=== PATIENT | female | born 1940 | race Caucasian/White ===

== ENCOUNTER 2023-05-02 15:44 | Outpatient (CLI) | payer MEDICARE, OTHER, SELFPAY ==
--- NOTE | ~2023-05-02 | XR_ITS ---
Impression: Prominent dorsal soft tissue swelling of the forefoot, nonspecific. Left foot Technique: AP, oblique, and lateral views were obtained. Clinical History: Pain Findings: No acute fracture or dislocation is seen. Osseous alignment is anatomic. Joint spaces are p reserved without erosive or degenerative change. There is prominent dorsal soft tissue swelling in th e forefoot. Impression: Prominent dorsal soft tissue swelling of the forefoot, nonspecific. Reviewed, dictated and finalized at location M.
== END 2023-05-02 15:45 | disposition home or self-care (01) ==
LOC: ANHIMG 15:48
PROVIDERS: PCP Family Medicine; Visit Provider Family Medicine
DX: M79.672 Pain in left foot (principal); R22.42 Localized swelling, mass and lump, left lower limb
CPT/HCPCS: 73630

== ENCOUNTER 2023-09-05 12:43 | Outpatient (CLI) | payer MEDICARE, OTHER, SELFPAY ==
--- NOTE | 2023-09-05 12:47 | ECHO_ITS ---
Patient Info Name: Reyna Ivy Age: 83 years : 1940 Gender: Female Ht: 68 in Wt: 255 lbs BSA: 2.41 m2 HR: 70 bpm BP: 128 / 62 mmHg Technical Quality: Poor Exam Date: 09/05/2023 12:58 PM Exam Location: Echo Lab Patient Status: Outpatient Admit Date: 09/05/2023 Staff Ordering Physician: Haris Gilbert MD Attending Provider: Haris Gilbert MD Referring Physician: Ofelia VILLEGAS; Exam Type: CA echo doppler color flow Study Info Indications I50.9 - Heart failure, unspecified Complete two-dimensional, color flow and Doppler transthoracic echocardiogram is performed. Reason for Poor Study: patient body habitus Summary 1. Complete two-dimensional, color flow and Doppler transthoracic echocardiogram is performed. 2. Technically suboptimal study due to poor sonographic images. 3. Left ventricular chamber dimension is normal. 4. Left ventricular systolic function is normal, estimated at 60-65%. 5. There is mild concentric increased left ventricular wall thickness. 6. The left ventricular diastolic function is grade I diastolic dysfunction. 7. E/e' 13 is mildly elevated. 8. Left atrial chamber dimension is mildly enlarged. 9. There is mild aortic valve sclerosis. 10. The mitral valve has moderately calcified annulus. 11. There is trace tricuspid valve regurgitation. 12. RVSP is not calculated due to an inadequate TR jet. Left Ventricle E/e' 13 is mildly elevated. Technically suboptimal study due to poor sonographic images. Left ventricular chamber dimension is normal. Left ventricular systolic function is normal, estimated at 60-65%. There is mild concentric increased left ventricular wall thickness. The left ventricular diastolic function is grade I diastolic dysfunction. Right Ventricle Right ventricular chamber dimension is normal. Right ventricular systolic function is normal. Left Atria Left atrial chamber dimension is mildly enlarged. Right Atria Right atrial chamber dimension is normal. Aortic Valve The aortic valve is trileaflet. There is mild aortic valve sclerosis. There is no aortic valve stenosis. There is no aortic valve regurgitation. Pulmonic Valve There is no pulmonic regurgitation. Mitral Valve The mitral valve has moderately calcified annulus. There is no mitral valve stenosis. There is no mitral valve regurgitation. Tricuspid Valve There is trace tricuspid valve regurgitation. RVSP is not calculated due to an inadequate TR jet. Pericardium/Pleural There is no pericardial effusion. Inferior Vena Cava Normal inferior vena cava with >50% collapse upon inspiration consistent with normal right atrial pressure, 5 mmHg. Aorta The aortic root size at the sinus of Valsalva is normal. Left Ventricular Outflow Tract Name Value Normal LVOT 2D LVOT Diameter 2.1 cm LVOT Doppler LVOT Peak Gradient 6 mmHg LVOT Mean Gradient 3 mmHg LVOT VTI 29 cm LVOT VTI/AV VTI Ratio 0.8 LVOT Stroke Volume 96 ml LVOT CO 6.5 l/min LVOT CI 2.7 l/min/m2 Pu
== END 2023-09-05 12:44 | disposition home or self-care (01) ==
LOC: ANHCARD 12:44
PROVIDERS: PCP Family Medicine; Visit Provider Family Medicine
DX: R93.1 Abnormal findings on diagnostic imaging of heart and coronary circulation (principal); I35.8 Other nonrheumatic aortic valve disorders; I34.81 Nonrheumatic mitral (valve) annulus calcification; I07.1 Rheumatic tricuspid insufficiency; R06.02 Shortness of breath; R53.83 Other fatigue; I50.9 Heart failure, unspecified
CPT/HCPCS: 93306

== ENCOUNTER 2024-03-17 14:31 | Inpatient (IN) | payer MEDICARE, OTHER, SELFPAY ==
[2024-03-17] VITALS (37 sets, daily range): BP systolic 88–155; BP diastolic 31–87; PULSE 75–99; RESP 11–30; TEMP 37.2–39.4; O2SAT 90–100
--- NOTE | ~2024-03-17 | CT_ITS ---
EXAMINATION: CT abd pelvis lumbar w con DATE: 03/17/2024 20:27 INDICATION: low back pain, fever, recent lithotripsy TECHNIQUE: Computed tomography (CT) of the abdomen and pelvis and lumbar spine was performed with 100 mL Omnipaque-350 intravenous contrast. Automated exposure control and iterative reconstruction techn ique were employed. The dose-length product was 1256.11 mGy-cm. COMPARISON: None. FINDINGS: Lower thorax: Mitral calcification Liver: Normal. Biliary/Gallbladder: Gallbladder is absent. Inflammatory change in the lex hepatis. Mild intrahepat ic and extra hepatic bile duct dilation. The common bile duct measures up to 11 mm. Pancreas: No mass or duct dilation. Spleen: Normal. Adrenals:Small right adrenal adenoma. Kidneys: Suggestion of patchy bilateral renal enhancement. Multiple bilateral subcentimeter hypodensi ties are too small to characterize. Simple left upper pole cyst. Multiple nonobstructing lateral calc gerri. Mild bilateral hydronephrosis with urothelial enhancement, greater on the left. GI tract: Mild distal esophageal and gastric wall edema. Moderate edema with surrounding inflammatory change and a 1.5 cm focal outpouching. No small or large bowel dilation. Normal appendix. Mesentery/Peritoneum: No ascites, mass, or free air. Retroperitoneum: No mass. Pelvis: Pelvic organs are within normal limits. Soft Tissues: Soft tissues and body wall unremarkable. Bones (excluding the lumbar spine): No acute osseous finding. Lumbar spine: 5 nonrib-bearing lumbar-type vertebral bodies. Posterior hardware fusion spanning L2-S1 , with multilevel laminectomies. Loss of the normal lumbar lordosis. Vertebral body heights preserved . Multilevel osseous fusion in the lower lumbar spine. Severe right neural foraminal narrowing second georgina to degenerative change at L1-2, with severe degenerative disc disease at the same level. No fract ure or dislocation. IMPRESSION: Mild intrahepatic and extrahepatic bile duct dilation with inflammatory change in the lex hepatis, may represent obstruction or cholangitis, or be reactive to the duodenal process. Correlate with bili georgina labs. Moderate duodenitis with possible wide necked 1.5 cm duodenal ulcer. Possible bilateral renal inflammatory change as can be seen with ascending infection. Correlate with urinalysis. No obstructive uropathy detected. No acute fracture or traumatic malalignment detected in the lumbar spine Reviewed, dictated and finalized at location K. IMPRESSION: Mild intrahepatic and extrahepatic bile duct dilation with inflammatory change in the lex hepatis, may represent obstruction or cholangitis, or be reactive to the duodenal process. Correlate with biliary labs. Moderate duodenitis with possible wide necked 1.5 cm duodenal ulcer. Possible bilateral renal inflammatory change as can be seen with ascending infe ction. Correlate with urinalysis. No obstructive uropathy detected. No acute fracture or traumatic malalignment detected in the lumbar spine
--- NOTE | ~2024-03-17 | XR_ITS ---
EXAMINATION: XR chest 1V portable DATE: 03/20/2024 09:35 INDICATION: Chest pain. TECHNIQUE: A single frontal view of the chest was obtained. COMPARISON: Chest single view 03/17/2024, CT abdomen and pelvis 03/17/2024 FINDINGS: The patient is rotated to her right. No pneumonia, pleural effusion or pneumothorax. The he art size is normal. Epidural electrodes are noted. There are surgical clips in the axillae. There are changes of posterior fusion procedure in lumbar spine. IMPRESSION: 1. No acute cardiopulmonary disease. Reviewed, dictated and finalized at location A.
--- NOTE | ~2024-03-17 | XR_ITS ---
EXAMINATION: XR chest 1V portable Exam Date/Time: 03/17/2024 17:50 CDT HISTORY: FEVER, UTI Comparison: X-ray thoracic spine 01/11/2018. RESULT: Lines, tubes, and devices: Stimulator pad over the midthoracic spine. Electronic device over the rig ht lower thorax. Left axillary clips. Lungs and pleura: Ill-defined patchy bilateral lower lung airspace disease. Mild left costophrenic a ngle blunting. Cardiomediastinal silhouette: Normal heart size. Mild arch calcification. Calcified lymph nodes. Dil ated central pulmonary arteries as can be seen with pulmonary arterial hypertension. Other: No acute osseous or upper abdominal finding. IMPRESSION: Patchy bilateral lower lung airspace disease, may represent atelectasis, edema, or infection. Reviewed, dictated and finalized at location K.
--- NOTE | ~2024-03-17 | CT_ITS ---
CT abdomen pelvis w con Ordering provider: Melani Be APRN History: 83 years Female with . right flank pain, treating for UTI, hx of stones . Comparison: March 17, 2024 Technique: CT abdomen and pelvis with IV and without oral contrast. Automated exposure control and it erative reconstruction technique were employed. The dose-length product was 1607.52 mGy-cm. 100 mL Om nipaque 350 was given IV. Findings: VISUALIZED LOWER CHEST: Minimal atelectatic changes with trace bilateral pleural effusion versus pleu ral thickening. Subcarinal calcified lymph nodes. UPPER ABDOMINAL ORGANS: Liver: Minimal intrahepatic biliary dilatation. The CBD is not dilated. Hepatomegaly. Gallbladder: Status post cholecystectomy. Spleen: Normal. Stomach/duodenum: Normal. Pancreas: Normal. Adrenals: Normal. Kidneys: Small cyst in the right kidney upper pole. Tiny Stone in the right kidney upper pole measuri ng 2 mm. Stone in the right kidney lower pole measuring 5 mm. Tiny stones in the left kidney lower pole. Hypodense areas in the left kidney upper pole with bulging which may indicate masses versus infection. Further evaluation and follow-up advised. Tiny cysts in the left kidney. PELVIC ORGANS: The bladder is normal. BOWEL AND MESENTERY: Colon: No evidence of diverticulitis. Fluid content is seen in the colon which may indicate diarrhea. Postoperative changes in the transverse colon area. No evidence of appendicitis. Small Bowel: Normal. No obstruction. Peritoneum/mesentery: No free air or free fluid. No mesenteric lymphadenopathy. RETROPERITONEUM: Mild atheromatous disease of the abdominal aorta. No retroperitoneal lymphadenopat hy. MUSCULOSKELETAL: Superficial soft tissues: Anterior abdominal wall hernia with bowel content. Otherwise, The superfici al soft tissues are normal. Bones: Age appropriate degenerative changes of the spine. Postoperative changes. Left spinal stimulator is seen in the lumbar area. IMPRESSION: 1. Hepatomegaly. Minimal intrahepatic biliary dilatation. 2. Bilateral renal cysts. Tiny right kidney upper pole a stone. Stone in the right kidney lower pole . Tiny stone in the left kidney lower pole. 3. Hypodense areas in the left kidney upper pole which may be infectious or masses. Follow-up and fu rther evaluation advised. 4. Fluid content in the colon which may indicate diarrhea. 5. Anterior upper abdominal wall hernia with bowel content. Reviewed, dictated and finalized at location A. IMPRESSION: 1. Hepatomegaly. Minimal intrahepatic biliary dilatation. 2. Bilateral renal cysts. Tiny right kidney upper pole a stone. Stone in the r ight kidney lower pole. Tiny stone in the left kidney lower pole. 3. Hypodense areas in the left kidney upper pole which may be infectious or ma sses. Follow-up and further evaluation advised. 4. Fluid content in the colon which may indicate diarrhea. 5. Anterior upper abdominal wall hernia with bowel content.
--- NOTE | 2024-03-17 17:32 | ED.FEVER ---
HPI - Fever General Chief Complaint: Weakness <Hope Steward PA-C - Last Filed: 03/18/24 00:21> Stated Complaint: weakness and pain <Hope Steward PA-C - Last Filed: 03/18/24 00:21> Time Seen by Provider: 03/17/24 17:14 <Hope Steward PA-C - Last Filed: 03/18/24 00:21> Source: patient <DOM Darden Last Filed: 03/18/24 00:21> Mode of arrival: ambulatory <DOM Darden Last Filed: 03/18/24 00:21> Limitations: no limitations <DOM Darden Last Filed: 03/18/24 00:21> History of Present Illness HPI Narrative: This is a 83-year-old female that presents to the emergency department for fevers and low back pain. Reports she had a lithotripsy 5 days ago with HS. She was evaluated again 2 days ago for worsening low back pain. Diagnosed with dehydration and sciatica. Reports today she has started to have fevers. Reports continued low back pain radiating into the legs. Also reports dysuria. Reports she had a urinary stent removed. She is not currently on any antibiotics. Denies cough, congestion, sore throat, vomiting, diarrhea, hematuria. <DMO Darden Last Filed: 03/18/24 00:21> Related Data Home Medications: Home Medications Medication Instructions Recorded Confirmed gabapentin 300 mg capsule 300 mg PO TID 04/11/23 03/18/24 baclofen 10 mg tablet 10 mg PO QHS 05/09/23 03/18/24 docusate sodium 100 mg tablet 200 mg PO BID 05/09/23 03/18/24 ergocalciferol (vitamin D2) 1,250 1,250 mcg PO MONTHLY 05/09/23 03/18/24 mcg (50,000 unit) capsule fluticasone propionate 50 2 spray intranasal DAILY 05/09/23 03/18/24 mcg/actuation nasal spray,suspension levothyroxine 50 mcg tablet 50 mcg PO DAILY 05/09/23 03/18/24 magnesium 200 mg tablet 250 mg PO BID 05/09/23 03/18/24 omega 4-sql-gxd-fish oil 1,000 mg 1 cap PO DAILY 05/09/23 03/18/24 (120 mg-180 mg) capsule (Fish Oil) hydrocodone 10 mg-acetaminophen 1 tablet PO QHS PRN Pain 11/19/23 03/18/24 325 mg tablet <Hope Steward PA-C - Last Filed: 03/18/24 00:21> Allergies/Adverse Reactions: Allergies Allergy/AdvReac Type Severity Reaction Status Date / Time Penicillins Allergy Unknown Unknown Verified 03/17/24 14:32 adhesive tape AdvReac Mild Unknown Verified 03/17/24 14:32 <Hope Steward PA-C - Last Filed: 03/18/24 00:21> Review of Systems Review of Systems: CONSTITUTIONAL: Reports fever ENT: Denies rhinorrhea, congestion, sore throat CARDIOVASCULAR: Denies edema. RESPIRATORY: Denies cough GASTROINTESTINAL: Denies abdominal pain, nausea, vomiting GENITOURINARY: Reports dysuria. Denies hematuria. MUSCULOSKELETAL: Reports back pain, joint pain, and myalgia. NEUROLOGIC: Denies numbness, or weakness. <Hope Steward PA-C - Last Filed: 03/18/24 00:21> All systems reviewed & are unremarkable except as noted in HPI and below <Hope Steward PA-C - Last Filed: 03/18/24 00:21> [facility] Past Medical History Medical History: Medical History (Updated 03/17/24 @ 22:25 by Hope Steward PA-C) Breast cancer Diabetes Fatigue GERD (gastroesophageal reflux disease) Heart failure History of fatty infiltration of liver Hypertension Hypothyroidism Irritable bowel syndrome Left foot drop Left foot pain Mass of left foot Sciatica Venous stasis dermatitis Vitamin D deficiency <Hope Steward PA-C - Last Filed: 03/18/24 00:21> Surgical History Surgical History: Surgical History H/O colonoscopy H/O mastectomy H/O: hysterectomy History of appendectomy History of back surgery History of colon resection Hx of cholecystectomy <Hope Steward PA-C - Last Filed: 03/18/24 00:21> Family History Family History: Family History (Updated 03/18/24 @ 01:05 by Latrice Reagan RN) Father Family history of Alzheimer's disease Cerebrovascular accident Mother Family history of congestiv
[2024-03-17] MEDS: ACETAMINOPHEN 500 MG TABLET 1000 MG PO (17:46)
[2024-03-17 18:22] LABS: Alanine Aminotransferase 16 U/L (6-35); Alkaline Phosphatase 95 U/L (38-126); Anion Gap 8 mmol/L (4-12); Aspartate Amino Transferase 32 U/L (14-36); Bilirubin,Total 0.6 mg/dL (0.2-1.3); Blood Urea Nitrogen 20 mg/dL (7-17); Calcium 7.6 mg/dL (8.4-10.2); Carbon Dioxide 23 mmol/L (22-30); Chloride 99 mmol/L (98-107); Estimated CRCL calculation 50 ml/min; Estimated Glomerular Filt Rate 60; Glucose 107 mg/dL (65-110); Lipase 103 U/L (23-300); Potassium 3.7 mmol/L (3.4-5.0); Sodium 130 mmol/L (137-145)
[2024-03-17 18:29] LABS: INR 1.3; Prothrombin Time 16.4 Seconds (11.1-14.7)
[2024-03-17 18:30] LABS: Partial Thromboplastin Time 32.4 Seconds (22.3-36.8)
[2024-03-17 18:33] LABS: Lactic Acid Reflex 1.1 mmol/L (0.7-2.0)
[2024-03-17 18:41] LABS: Add Urine Microscopic? YES; Appearance Urine Cloudy (Clear); Bacteria Urine None Seen /hpf; Bilirubin Urine Negative (Negative); Blood Urine 1+ (Negative); Color Urine Yellow (Yellow); Glucose Urine UA Negative (Negative); Ketones Urine Negative (Negative); Leukocyte Esterase Ur 1+ LEU/UL (Negative); Need Manual Microscopic Reviewed; Nitrate Urine Negative (Negative); Protein Urine 2+ mg/dL (Negative); Specific Grav Ur 1.016 (1.001-1.035); Squamous Epithelial Cell Urine Few /hpf (Few); Urobilinogen Urine 0.2 mg/dL (<2.0); WBC Urine 21-50 /hpf (0-3); pH Urine 5.5 (5.0-9.0)
[2024-03-17 18:56] LABS: CRP 20.1 mg/dL (<1.0)
[2024-03-17] MEDS: SODIUM CHLORIDE 0.9% IV 500 ML 999 ML IV CONT ×3 (18:58→23:29)
[2024-03-17 19:04] LABS: Basophils Absolute Auto 0.1 K/mm3 (0.0-0.1); Basophils Percent Auto 0.6 % (0.2-1.2); Eosinophils Absolute Auto 0.1 K/mm3 (0-0.3); Eosinophils Percent Auto 0.6 % (0-4.4); Hematocrit 27.5 % (37.0-47.0); Hemoglobin 8.7 g/dL (12.0-15.0); Immature Granulocyte Absolute 0.04 K/mm3 (0.00-0.031); Immature Granulocyte Percent A 0.5 % (0-0.5); Lymphocytes Absolute Auto 1.29 K/mm3 (0.9-3.2); Lymphocytes Percent Auto 15.7 % (18.3-44.2); Mean Corpuscular HGB Conc 31.6 g/dl (32-36); Mean Corpuscular Hemoglobin 29.6 pg (26-34); Mean Corpuscular Volume 93.5 fl (80-100); Mean Platelet Volume 9.6 fl (7.4-10.4); Monocytes Absolute Auto 1.2 K/mm3 (0.1-0.6); Monocytes Percent Auto 14.1 % (2.6-8.5); Neutrophils Absolute Auto 5.6 K/mm3 (1.3-6.7); Neutrophils Percent Auto 68.5 % (45.5-73.1); Platelet Count Result 249 k/mm3 (150-375); Red Blood Count 2.94 M/mm3 (4.2-5.4); Red Cell Distribution Width 13.1 % (11.5-14.5); White Blood Count 8.2 K/mm3 (4.5-10.0)
[2024-03-17 19:19] LABS: Influenza A QL RT-PCR Negative (Negative); Influenza B QL RT-PCR Negative (Negative); RSV RNA, RT-PCR Negative (Negative); SARS-CoV-2 RNA PCR Negative (Negative)
--- NOTE | 2024-03-17 22:18 | PM.IMHP ---
H&P: HPI History of Present Illness Date/Time: 03/17/24 22:18 Chief Complaint: generalized weakness Narrative: This is an 83-year-old female with past medical history significant for breast cancer, diabetes, GERD, heart failure, left footdrop. patient is status post lithotripsy comes today to the emergency room due to chills, night sweats, generalized weakness, abdominal pain, poor per orally intake. Preliminary workup was significant for chest x-ray with infiltrates, a urinalysis was significant for numerous WBCs present CT of abdomen and pelvis was significant for duodenal ulcer present. patient denies any hematemesis, coffee-ground emesis, bright red blood per rectum, melena, weight loss. patient has been admitted for further evaluation management and treatment. EXAMINATION: XR chest 1V portable Exam Date/Time: 03/17/2024 17:50 CDT HISTORY: FEVER, UTI Comparison: X-ray thoracic spine 01/11/2018. RESULT: Lines, tubes, and devices: Stimulator pad over the midthoracic spine. Electronic device over the right lower thorax. Left axillary clips. Lungs and pleura: Ill-defined patchy bilateral lower lung airspace disease. Mild left costophrenic angle blunting. Cardiomediastinal silhouette: Normal heart size. Mild arch calcification. Calcified lymph nodes. Dilated central pulmonary arteries as can be seen with pulmonary arterial hypertension. Other: No acute osseous or upper abdominal finding. IMPRESSION: Patchy bilateral lower lung airspace disease, may represent atelectasis, edema, or infection. Review of Systems Review of Systems: generalized weakness, malaise, chills, night sweats, poor per oral intake, abdominal pain PMFSH Past Medical History Medical History (Updated 03/18/24 @ 02:14 by Bonnie Randle MD) Breast cancer Diabetes Fatigue GERD (gastroesophageal reflux disease) Heart failure History of fatty infiltration of liver Hypertension Hypothyroidism Irritable bowel syndrome Left foot drop Left foot pain Mass of left foot Sciatica Venous stasis dermatitis Vitamin D deficiency Surgical History Surgical History H/O colonoscopy H/O mastectomy H/O: hysterectomy History of appendectomy History of back surgery History of colon resection Hx of cholecystectomy Family History Family History (Updated 03/18/24 @ 01:05 by Latrice Reagan RN) Father Family history of Alzheimer's disease Cerebrovascular accident Mother Family history of congestive heart failure Family history of chronic obstructive pulmonary disease Lung cancer Social History Social History Smoking status: Former smoker Tobacco type: cigarettes Second hand tobacco smoke exposure: Yes Alcohol intake: current Drinks per week: 1 Substance use: never Do You Feel Safe in your Home?: Yes Lack of Transportation: No Lack of Food: Never True Current Housing: I Have Housing Concerned About Future Housing: No Difficulty Paying Gas/Electric Bills: No Difficulty Paying for Meds: No Currently Unemployed: No Education: Decline to Answer Difficulty w/ Childcare or Family Care: No Living arrangements: with family Occupation/Education: retired Spiritual care concerns: No Agree to blood products: Yes Meds Home Medications and Allergies Home Medications Medication Instructions Recorded Confirmed Type gabapentin 300 mg capsule 300 mg PO TID 04/11/23 03/18/24 History baclofen 10 mg tablet 10 mg PO QHS 05/09/23 03/18/24 History docusate sodium 100 mg tablet 200 mg PO BID 05/09/23 03/18/24 History ergocalciferol (vitamin D2) 1,250 1,250 mcg PO MONTHLY 05/09/23 03/18/24 History mcg (50,000 unit) capsule fluticasone propionate 50 2 spray intranasal DAILY 05/09/23 03/18/24 History mcg/actuation nasal spray,suspension levothyroxine 50 mcg tablet 50 mcg PO FILIPPO
[2024-03-17] MEDS: PHENAZOPYRIDINE HCL 100 MG TABLET 200 MG PO (22:21)
[2024-03-17] MEDS: PANTOPRAZOLE SODIUM IV 40 MG VIAL IV PUSH ×2 (22:21→23:36)
[2024-03-17] MEDS: VANCOMYCIN 1,250 MG/NS 250 ML 1,250 MG/250 ML BAG 166.67 MG IVPB (23:31)
[2024-03-18] VITALS (17 sets, daily range): BP systolic 114–144; BP diastolic 39–61; PULSE 80–92; RESP 16–27; TEMP 36.5–37.6; O2SAT 95–99; BMI 39.0
--- NOTE | 2024-03-18 00:10 | ADMGEN ---
This patient, Reyna Ivy, was admitted to IMU Room 211-01. Patient/family oriented to hospital policies and general routines including ID bracelet, bed and alarms, visiting hours, pain management, procedures, bathroom and other care routines, personal items, smoking policy, room service/diet, and visiting hours. Information on how to activate the Rapid Response Team has been discussed. Patient/Family are encouraged to report perceived risks to care and to ask questions if they do not understand what they are told or what they should do.
[2024-03-18 00:29] LABS: MRSA (PCR) NOT DETECTED (NOT DETECTE)
[2024-03-18] MEDS: VANCOMYCIN 1,250 MG/NS 250 ML 1,250 MG/250 ML BAG 166.67 MG IVPB (01:09)
[2024-03-18] MEDS: GABAPENTIN 300 MG CAPSULE PO ×4 (02:50→21:06)
[2024-03-18] MEDS: ZOLPIDEM TARTRATE (*CRX) 5 MG TABLET PO ×2 (02:50→21:18)
[2024-03-18] MEDS: CEFEPIME 1 GM/NS 50 ML 1 GM/50 ML BAG IVPB ×2 (05:22→12:44)
[2024-03-18] MEDS: LEVOTHYROXINE SODIUM 50 MCG TABLET PO (05:36)
[2024-03-18] MEDS: SUCRALFATE SUSP 100 MG/ML 10 ML UDC 1000 MG PO ×3 (05:36→21:06)
[2024-03-18 05:43] LABS: Estimated CRCL calculation 66 ml/min; Estimated Glomerular Filt Rate > 60
[2024-03-18] MEDS: AZITHROMYCIN 500 MG/NS 250 ML 500 MG/250 ML BAG 250 MG IVPB (05:55)
--- NOTE | 2024-03-18 07:46 | P.CONGI_ITS ---
I, Nicko Bellamy MD, have provided a substantive portion of the care of this patient and discussed the patient with my Nurse Practitioner. I have reviewed any new relevant radiographic and laboratory results including medications. I agree with her documentation as noted below.?I personally performed the medical decision making and much of the history and exam for this encounter. briefly, she has been dealing lately with kidney stones that required hospitalization, also chronic use of nsaid's and constipation on amitiza. Here with abdominal discomfort, dyspepsia, nausea. Blood work showed anemia with hgb 9, CT scan showed duodenitis with possible duodenal ulcer. Last EGD years ago. Plan is EGD to assess, stop nsaids and iv protonix. More recommendations after EGD. Assessment and Plan Assessment and plan (1) Duodenal ulcer: Code(s): K26.9 - Duodenal ulcer, unspecified as acute or chronic, without hemorrhage or perforation Status: Acute (2) Abnormal digestive system diagnostic imaging: Code(s): R93.3 - Abnormal findings on diagnostic imaging of other parts of digestive tra ct Status: Acute (3) Acute blood loss anemia: Code(s): D62 - Acute posthemorrhagic anemia Status: Acute (4) Abnormal findings on imaging of biliary tract: Code(s): R93.2 - Abnormal findings on diagnostic imaging of liver and biliary tract Status: Acute (5) Constipation: Qualifiers: Constipation type: drug induced constipation Qualified Code(s): K59.03 - Drug induced constipation Code(s): K59.00 - Constipation, unspecified Status: Acute (6) Duodenitis: Code(s): K29.80 - Duodenitis without bleeding Status: Acute (7) Bilateral lower abdominal pain: Code(s): R10.31 - Right lower quadrant pain; R10.32 - Left lower quadrant pain Status: Acute (8) Weight loss: Code(s): R63.4 - Abnormal weight loss Status: Acute (9) Early satiety: Code(s): R68.81 - Early satiety Status: Acute (10) NSAID long-term use: Code(s): Z79.1 - superintendent terminal (current) use of non-steroidal anti-inflammatories (NSAID) Status: Acute Plan 1) Abnormal imaging digestive/duodenitis/ possible duodenal ulcer / melena /chronic NSAID use/nausea/weight loss/early satiety/Chronic NSAID use: Last EGD 11/15/[address] Ge showed gastric polyps. Previous EGDs since 2009 revealed 2 large masses removed from the gastric wall and antral ulcer. Endoscopy reports and pathology not available prior to today's visit. Patient has been using ibuprofen and naproxen 1-2 times daily for a long time . She denies any aspirin or anticoagulant use prior to admission. Over the past few weeks she has been having intermittent episodes of black colored stools but has not had a bowel movement over the past 3 days. Admits to occasional nausea but no vomiting. CT on admission showed moderate duodenitis with possible wide neck to 1.5 cm duodenal ulcer. * care with NSAIDs, aspirin, or anticoagulants * NPO * EGD today * continue b.i.d. Protonix * Continue Carafate 1 g q.i.d. * continue antibiotics * further recommendations to follow endoscopy 2) Acute blood loss anemia: Labs during her admission in February showed HGB 14, HCT 43. On admission yesterday labs showed wbc's 8, HGB 9, HCT 28, MCV 94, plat elets 249. INR 1.3. Patient admits to intermittent melena over the past few weeks. Denies any hematochezia. Denies any signs of acute GI bleeding since admission. * primary care team to continue monitoring H&H and transfuse as need
--- NOTE | 2024-03-18 07:46 | WPDGICN ---
Assessment and Plan Assessment and plan (1) Duodenal ulcer: Code(s): K26.9 - Duodenal ulcer, unspecified as acute or chronic, without hemorrhage or perforation Status: Acute (2) Abnormal digestive system diagnostic imaging: Code(s): R93.3 - Abnormal findings on diagnostic imaging of other parts of digestive tract Status: Acute (3) Acute blood loss anemia: Code(s): D62 - Acute posthemorrhagic anemia Status: Acute (4) Abnormal findings on imaging of biliary tract: Code(s): R93.2 - Abnormal findings on diagnostic imaging of liver and biliary tract Status: Acute (5) Constipation: Qualifiers: Constipation type: drug induced constipation Qualified Code(s): K59.03 - Drug induced constipation Code(s): K59.00 - Constipation, unspecified Status: Acute (6) Duodenitis: Code(s): K29.80 - Duodenitis without bleeding Status: Acute (7) Bilateral lower abdominal pain: Code(s): R10.31 - Right lower quadrant pain; R10.32 - Left lower quadrant pain Status: Acute (8) Weight loss: Code(s): R63.4 - Abnormal weight loss Status: Acute (9) Early satiety: Code(s): R68.81 - Early satiety Status: Acute (10) NSAID long-term use: Code(s): Z79.1 - bed bug exterminator (current) use of non-steroidal anti-inflammatories (NSAID) Status: Acute Plan 1) Abnormal imaging digestive/duodenitis/ possible duodenal ulcer / melena /chronic NSAID use/nausea/weight loss/early satiety/Chronic NSAID use: Last EGD 11/15/[address] Ge showed gastric polyps. Previous EGDs since 2009 revealed 2 large masses removed from the gastric wall and antral ulcer. Endoscopy reports and pathology not available prior to today's visit. Patient has been using ibuprofen and naproxen 1-2 times daily for a long time . She denies any aspirin or anticoagulant use prior to admission. Over the past few weeks she has been having intermittent episodes of black colored stools but has not had a bowel movement over the past 3 days. Admits to occasional nausea but no vomiting. CT on admission showed moderate duodenitis with possible wide neck to 1.5 cm duodenal ulcer. care with NSAIDs, aspirin, or anticoagulants NPO EGD today continue b.i.d. Protonix Continue Carafate 1 g q.i.d. continue antibiotics further recommendations to follow endoscopy 2) Acute blood loss anemia: Labs during her admission in February showed HGB 14, HCT 43. On admission yesterday labs showed wbc's 8, HGB 9, HCT 28, MCV 94, platelets 249. INR 1.3. Patient admits to intermittent melena over the past few weeks. Denies any hematochezia. Denies any signs of acute GI bleeding since admission. primary care team to continue monitoring H&H and transfuse as needed to keep HGB > 7 EGD planned to rule out upper GI source of blood loss 3. Bilateral lower quadrant abdominal pain/chronic constipation: Last colonoscopy 11/15/2015 revealed diverticulosis. Patient with a history of partial colon resection performed around 2010 secondary to bowel obstruction, s/p take down. Patient states that she has been on Amitiza 8 mcg daily for approximately 6 months which had been controlling her constipation well until recently as she has had multiple surgeries and has been requiring more pain medication. Patient has been using laxatives as needed and states that her last good bowel movement was 3 days ago. Her lower abdominal pain she describes as a dull ache that radiates into her back and has been occurring for a few weeks. This pain has no correlation with with bowel movements or food intake. continue Amitiza 8 mcg but increased BID dosing, may consider increasing to 24 mcg if constipation persists Thank you very much for allowing me to share in the care of this very nice patient. This report may have been done utilizing a voice recognition system. Attempts have been made to correct
--- NOTE | 2024-03-18 08:24 | WPDURCON ---
Assessment and Plan Assessment and plan (1) UTI (urinary tract infection): Code(s): N39.0 - Urinary tract infection, site not specified Status: Acute Assessment and Plan: Culture is pending. Will continue with antibiotics pending sensitivities. Doubt that this is the true source of all for discomfort and weakness as her ulcer may be more of an issue. Unclear as to why is having high fevers in the face of a normal white count. (2) Acute pyelonephritis: Code(s): N10 - Acute pyelonephritis Status: Acute Assessment and Plan: Again is asymptomatic regarding specific renal colic. Will await urine culture sensitivities (3) Duodenal ulcer: Code(s): K26.9 - Duodenal ulcer, unspecified as acute or chronic, without hemorrhage or perforation Status: Acute Assessment and Plan: managed by primary care service Urology Consult Note HPI Date Seen: 03/18/24 Time Seen: 08:24 Requesting Physician: Bonnie Randle MD Primary Care Provider: Carmelina Cole APRN Consult Narrative Reason for consult: UTI and bilateral renal stranding Narrative: Reyna Ivy is a 83 year old female who underwent left ureteroscopy with extraction of 2 ureteral stones measuring 5-6 mm each on 03/12/24. She had an indwelling stent that was removed several days later. She also has a history of sciatica with low back pain as well as a known duodenal ulcer. She presented the emergency room with weakness and diffuse abdominal low back pain. CT scan revealed some mild intrahepatic and extrahepatic bile duct dilatation with inflammatory change in the lex hepatis, moderate duodenitis with possible wide necked 1.5 cm duodenal ulcer and possible bilateral renal inflammatory change no obstructive uropathy was detected. Her white count was normal. Urine did have some leukocytes and white cells present. She denies any voiding symptoms. Also denied any specific renal colic. Blood in urine cultures are pending. Review of Systems Review of Systems: All systems reviewed & are unremarkable except as noted in HPI and below PMFSH Past Medical History Medical History Breast cancer Diabetes Fatigue GERD (gastroesophageal reflux disease) Heart failure History of fatty infiltration of liver Hypertension Hypothyroidism Irritable bowel syndrome Left foot drop Left foot pain Mass of left foot Sciatica Venous stasis dermatitis Vitamin D deficiency Surgical History Surgical History H/O colonoscopy H/O mastectomy H/O: hysterectomy History of appendectomy History of back surgery History of colon resection Hx of cholecystectomy Family History Family History Father Family history of Alzheimer's disease Cerebrovascular accident Mother Family history of congestive heart failure Family history of chronic obstructive pulmonary disease Lung cancer Social History Social History Smoking status: Former smoker Tobacco type: cigarettes Second hand tobacco smoke exposure: Yes Alcohol intake: current Drinks per week: 1 Substance use: never Do You Feel Safe in your Home?: Yes Lack of Transportation: No Lack of Food: Never True Current Housing: I Have Housing Concerned About Future Housing: No Difficulty Paying Gas/Electric Bills: No Difficulty Paying for Meds: No Currently Unemployed: No Education: Decline to Answer Difficulty w/ Childcare or Family Care: No Living arrangements: with family Occupation/Education: retired Spiritual care concerns: No Agree to blood products: Yes Meds Home Medications and Allergies Home Medications Medication Instructions Recorded Confirmed Type gabapentin 300 mg capsule 300 mg PO TID
[2024-03-18] MEDS: FLUTICASONE PROPIONATE 0.05% NA SPR 16 GM BTL (*BKC) 2 SPRAY NASAL (08:43)
[2024-03-18] MEDS: PANTOPRAZOLE SODIUM IV 40 MG VIAL IV PUSH ×2 (08:43→21:06)
--- NOTE | 2024-03-18 12:39 | PM.IMPN ---
Progress Note: A&P Assessment and Plan (1) Pneumonia: Code(s): J18.9 - Pneumonia, unspecified organism Status: Acute Assessment and Plan: 03/18/24: Chest x-ray showing patchy bilateral lower lung airspace disease Continue Rocephin and azithromycin Blood cultures were obtained and are pending MRSA negative D/C Vancomycin (2) UTI (urinary tract infection): Code(s): N39.0 - Urinary tract infection, site not specified Status: Acute Assessment and Plan: 03/18/24: UA showed 2+ urine protein, 1+ urine blood, 1+ leukocyte, 6-10 urine RBC, 21-50 urine WBC. Urine and blood cultures were obtained and are pending Continue Rocephin (3) Acute pyelonephritis: Code(s): N10 - Acute pyelonephritis Status: Acute Assessment and Plan: 03/18/24: Continue Rocephin CT of abdomen and pelvis shown possible bilateral renal inflammatory changes as can be seen with ascending infection Urology consulted and following (4) Duodenal ulcer: Code(s): K26.9 - Duodenal ulcer, unspecified as acute or chronic, without hemorrhage or perforation Status: Acute Assessment and Plan: 03/18/24: CT of the abdomen pelvis shows moderate duodenitis with possible wide neck 1.5 cm duodenal ulcer Continue Protonix b.i.d. Continue Carafate GI consulted plan for EGD today NPO for now (5) Hypothyroidism: Qualifiers: Hypothyroidism type: acquired Qualified Code(s): E03.9 - Hypothyroidism, unspecified Code(s): E03.9 - Hypothyroidism, unspecified Status: Acute Assessment and Plan: 03/18/24: Continue Synthroid (6) Hypertension: Qualifiers: Hypertension type: primary hypertension Qualified Code(s): I10 - Essential (primary) hypertension Code(s): I10 - Essential (primary) hypertension Status: Acute Assessment and Plan: 03/18/24: Blood pressure ranging 126/55 to 143/52 Continue lisinopril Time Spent With Patient Time with patient: Greater than 35 minutes Subjective Date/time seen: 03/18/24 12:39 Interval history: Interval history: This is an 83-year-old female who presented to the hospital on 03/17/2024 with weakness. Workup in the hospital included chest x-ray showed patchy bilateral lower lung airspace disease. CT of abdomen pelvis and lumbar spine with contrast showed mild intrahepatic and extrahepatic bile duct dilatation with inflammatory change in the lex hepatis representing obstruction or cholangitis, moderate duodenitis with possible wide necked 1.5 cm duodenal ulcer, possible bilateral renal inflammatory change is seen with infection. Initial labs showed a white blood cell count of 8.2, hemoglobin 8.7, sodium 130, lactic acid was normal at 1.1, liver enzymes were normal, C reactive protein 20.1, lipase 103. UA was obtained and shown 2+ urine protein, 1+ urine blood, 1+ leukocytes, 6-10 urine RBC, 21-50 urine wbc's. MRSA was negative. Respiratory panel was negative for influenza a and B, RSV, COVID. Blood and urine cultures were obtained and are pending. Patient was given IV fluids, peridium, Protonix, Rocephin, vancomycin while in the ED. urology and GI were consulted. 03/18/24: Patient denies. Patient endorses. Review of Systems Review of Systems: generalized weakness, malaise, chills, night sweats, poor per oral intake, abdominal pain All systems reviewed & are unremarkable except as noted in HPI and below Constitutional: Constitutional: Reports as per HPI and Reports no additional constitutional complaints Eyes: Eyes: Reports as per HPI and Reports no additional eye complaints ENT: Reports system reviewed and no additional complaints, except as documented and Reports as per HPI Cardiovascular: Cardiovascular: Reports as per HPI and Reports no additional cardiovascular complaints Respiratory: Respiratory: Reports as per HPI and Reports no additional respiratory complaints
[2024-03-18] MEDS: HYDROmorphone HCL INJ (*CRX) 1 MG/ML SYR 0.5 MG IV PUSH ×2 (14:15→21:07)
--- NOTE | 2024-03-18 14:15 | PC.NURSE ---
To GI Lab per Alessio hernadez. Report given to Margie Quintero @ [phone]
[2024-03-18] MEDS: LACTATED RINGERS 1,000 ML 150 ML IV CONT (14:28)
--- NOTE | 2024-03-18 15:06 | WPDANESEPPF ---
Anes - Initial Pre Proc Eval Procedure: Operation Date: 03/18/24 17:00 Proposed Procedures p Esophagogastroduodenoscopy - Nicko Bellamy MD Date/Time: 03/18/24 15:06 Surgeon: Bonnie Randle MD Pre Op Diagnosis: Bilateral Pyelonephritis /Sepsis Patient Data Age: 83 Gender: F Height: 1.68 m Weight: 109.8 kg Last Vital Signs Temp 97.7 F 03/18/24 14:22 Pulse 91 03/18/24 14:22 Resp 20 03/18/24 14:22 BP 144/61 H 03/18/24 14:22 Pulse Ox 97 03/18/24 14:22 O2 Del Method Room Air 03/18/24 14:22 Allergies Allergy/AdvReac Type Severity Reaction Status Date / Time Penicillins Allergy Unknown Unknown Verified 03/17/24 14:32 adhesive tape AdvReac Mild Unknown Verified 03/17/24 14:32 Home Medications Medication Instructions Recorded Confirmed Type gabapentin 300 mg capsule 300 mg PO TID 04/11/23 03/18/24 History baclofen 10 mg tablet 10 mg PO QHS 05/09/23 03/18/24 History docusate sodium 100 mg tablet 200 mg PO BID 05/09/23 03/18/24 History ergocalciferol (vitamin D2) 1,250 1,250 mcg PO MONTHLY 05/09/23 03/18/24 History mcg (50,000 unit) capsule fluticasone propionate 50 2 spray intranasal DAILY 05/09/23 03/18/24 History mcg/actuation nasal spray,suspension levothyroxine 50 mcg tablet 50 mcg PO DAILY 05/09/23 03/18/24 History magnesium 200 mg tablet 250 mg PO BID 05/09/23 03/18/24 History omega [id number]-fish oil 1,000 mg 1 cap PO DAILY 05/09/23 03/18/24 History (120 mg-180 mg) capsule (Fish Oil) hydrocodone 10 mg-acetaminophen 1 tablet PO QHS PRN Pain 11/19/23 03/18/24 History 325 mg tablet lubiprostone 8 mcg capsule 8 mcg PO DAILY #90 caps 02/08/24 03/18/24 Rx lisinopril 20 mg tablet 20 mg PO DAILY #90 tabs 02/21/24 03/18/24 Rx zolpidem 5 mg tablet (Ambien) 5 mg PO QHS PRN insomnia #90 tabs 02/21/24 03/18/24 Rx Laboratory Tests 03/17/24 03/17/24 03/17/24 17:50 18:13 18:16 WBC RBC Hgb Hct MCV MCH MCHC RDW Plt Count MPV Immature Gran % (Auto) Neut % (Auto) Lymph % (Auto) Weld % (Auto) Eos % (Auto) Baso % (Auto) Lymph # (Auto) Weld # (Auto) Eos # (Auto) Baso # (Auto) Abs Immat Gran (auto) Absolute Neuts (auto) Absolute Nucleated RBC Nucleated RBC % PT 16.4 H Seconds (11.1-14.7) INR 1.3 APTT 32.4 Seconds (22.3-36.8) Sodium 130 L mmol/L (137-145) Potassium 3.7 mmol/L (3.4-5.0) Chloride 99 mmol/L (98-107) Carbon Dioxide 23 mmol/L (22-30) Anion Gap 8 mmol/L (4-12) BUN 20 H mg/dL (7-17) Creatinine 0.90 mg/dL (0.7-1.0) Estim Creat Clear Calc 50 ml/min Estimated GFR 60 (59 - ) Glucose 107 mg/dL (65-110) Lactic Acid 1.1 mmol/L (0.7-2.0) Calcium 7.6 L mg/dL (8.4-10.2) Total Bilirubin 0.6 mg/dL (0.2-1.3) AST 32 U/L (14-36) ALT 16 U/L (6-35) Alkaline Phosphatase 95 U/L (38-126) C-Reactive Protein 20.1 H mg/dL (<1.0) Total Protein 6.0 L g/dL (6.3-8.2) Albumin 3.0 L g/dL (3.5-5.1) Lipase 103 U/L (23-300) Urine Color Yellow (Yellow) Urine Appearance Cloudy H (Clear) Urine pH 5.5 (5.0-9.0) Ur Specific [place] 1.016 (1.001-1.035) Urine Protein 2+ H mg/dL (Negative) Urine Glucose (UA) Negative mg/dL (Negative) Urine Ketones Negative mg/dL (Negative) Ur Blood (Man) 1+ H (Negative) Urine Nitrate Negative (Negative) Urine Bilirubin Negative (Negative) Urine Urobilinogen 0.2 mg/dL
[2024-03-18] MEDS: BENZOCAINE (*SP) 60 ML SPRAY CAN (HURRICAINE) 1 SPRAY MUCOUS MEM (15:13)
--- NOTE | 2024-03-18 16:01 | PC.NURSE ---
Returned from GI Lab. Report received from [ WILDER Keenan @ [phone]
[2024-03-18] MEDS: ENOXAPARIN 40 MG/0.4 ML SYRINGE SUB-Q (16:17)
[2024-03-18] MEDS: lisinopriL 20 MG TABLET PO (16:17)
[2024-03-18] MEDS: LUBIPROSTONE 8 MCG CAPSULE PO (16:17)
[2024-03-18] MEDS: OMEGA 3 POLYUNSAT FATTY ACIDS 1 GM CAP PO (16:17)
[2024-03-18] MEDS: DOCUSATE SODIUM 100 MG CAPSULE 200 MG PO (16:17)
[2024-03-18 16:21] LABS: HPYLORIRESULT Negative
[2024-03-18] MEDS: BACLOFEN 10 MG TABLET PO (21:06)
[2024-03-18] MEDS: CEFEPIME 2 GM/NS 50 ML 2 GM/50 ML BAG IVPB (21:06)
[2024-03-19 00:27] VITALS: BP 126/47; PULSE 93; RESP 20; TEMP 37.7; O2SAT 98
--- NOTE | 2024-03-19 06:38 | PC.NURSE ---
This patient, Reyna Ivy, was received from [[facility] ] on 03/19/24 at 0638. Patient/family oriented to unit policies and routines
[2024-03-19 06:45] VITALS: PULSE 79; O2SAT 95
[2024-03-19] MEDS: LEVOTHYROXINE SODIUM 50 MCG TABLET PO (06:47)
[2024-03-19] MEDS: SUCRALFATE SUSP 100 MG/ML 10 ML UDC 1000 MG PO ×4 (06:48→20:58)
[2024-03-19] MEDS: AZITHROMYCIN 500 MG/NS 250 ML 500 MG/250 ML BAG 250 MG IVPB (06:53)
[2024-03-19] MEDS: CEFEPIME 2 GM/NS 50 ML 2 GM/50 ML BAG IVPB (08:06)
[2024-03-19] MEDS: lisinopriL 20 MG TABLET PO (08:06)
[2024-03-19] MEDS: ENOXAPARIN 40 MG/0.4 ML SYRINGE SUB-Q (08:06)
[2024-03-19] MEDS: OMEGA 3 POLYUNSAT FATTY ACIDS 1 GM CAP PO (08:06)
[2024-03-19] MEDS: FLUTICASONE PROPIONATE 0.05% NA SPR 16 GM BTL (*BKC) 2 SPRAY NASAL (08:06)
[2024-03-19 08:13] VITALS: TEMP 37.3
[2024-03-19 08:34] LABS: Basophils Absolute Auto 0.1 K/mm3 (0.0-0.1); Basophils Percent Auto 0.8 % (0.2-1.2); Eosinophils Absolute Auto 0.2 K/mm3 (0-0.3); Hematocrit 27.1 % (37.0-47.0); Hemoglobin 8.6 g/dL (12.0-15.0); Immature Granulocyte Absolute 0.03 K/mm3 (0.00-0.031); Immature Granulocyte Percent A 0.5 % (0-0.5); Lymphocytes Absolute Auto 1.17 K/mm3 (0.9-3.2); Lymphocytes Percent Auto 19.7 % (18.3-44.2); Mean Corpuscular HGB Conc 31.7 g/dl (32-36); Mean Corpuscular Hemoglobin 29.7 pg (26-34); Mean Corpuscular Volume 93.4 fl (80-100); Mean Platelet Volume 9.5 fl (7.4-10.4); Monocytes Absolute Auto 0.9 K/mm3 (0.1-0.6); Monocytes Percent Auto 14.7 % (2.6-8.5); Neutrophils Absolute Auto 3.6 K/mm3 (1.3-6.7); Neutrophils Percent Auto 60.3 % (45.5-73.1); Platelet Count Result 233 k/mm3 (150-375); Red Cell Distribution Width 13.2 % (11.5-14.5); White Blood Count 5.9 K/mm3 (4.5-10.0)
[2024-03-19 08:57] LABS: Alanine Aminotransferase 22 U/L (6-35); Albumin Level 2.7 g/dL (3.5-5.1); Alkaline Phosphatase 90 U/L (38-126); Anion Gap 6 mmol/L (4-12); Aspartate Amino Transferase 36 U/L (14-36); Bilirubin,Total 0.4 mg/dL (0.2-1.3); Blood Urea Nitrogen 13 mg/dL (7-17); Calcium 7.5 mg/dL (8.4-10.2); Carbon Dioxide 24 mmol/L (22-30); Chloride 104 mmol/L (98-107); Estimated CRCL calculation 65 ml/min; Estimated Glomerular Filt Rate > 60; Glucose 110 mg/dL (65-110); Potassium 3.6 mmol/L (3.4-5.0); Sodium 134 mmol/L (137-145)
[2024-03-19] MEDS: GABAPENTIN 300 MG CAPSULE PO ×3 (09:18→20:58)
[2024-03-19] MEDS: PANTOPRAZOLE 40 MG TABLET PO ×2 (09:18→20:57)
--- NOTE | 2024-03-19 09:41 | WPDUROPN2 ---
Progress Note: A&P Assessment and Plan (1) UTI (urinary tract infection): Code(s): N39.0 - Urinary tract infection, site not specified Status: Acute Assessment and Plan: Preliminary urine culture with growth of Gram-negative bacilli. Continue empiric antibiotics while awaiting final culture results. Remaining afebrile today. WBC 5.9. (2) Acute pyelonephritis: Code(s): N10 - Acute pyelonephritis Status: Acute Assessment and Plan: Suggested on CT, though she is relatively asymptomatic. Continue antibiotics tailored to urine culture as above (3) Duodenal ulcer: Code(s): K26.9 - Duodenal ulcer, unspecified as acute or chronic, without hemorrhage or perforation Status: Acute Assessment and Plan: Being managed by GI and primary team Subjective Subjective Date/Time Seen: 03/19/24 09:41 Interval history: She is feeling well today. Reports abdominal/epigastric pain is greatly improved. Has very mild dysuria which she states is improving. Denies hematuria. Denies nausea, vomiting, fever, or chills. Review of Systems Review of Systems: All systems reviewed & are unremarkable except as noted in HPI and below Exam Narrative: General: Awake, alert, comfortable, no acute distress HEENT: Normocephalic, atraumatic, sclerae anicteric Respiratory: Normal respiratory effort, no accessory muscle use Abdomen: Nondistended, soft, nontender Skin: Normal coloration, warm and dry Neurologic: No focal neuro deficits noted Psychiatric: Appropriate mood and affect, judgment and insight intact Objective Data Vital Signs Vital Signs: Vital Signs - 24 hr 03/18/24 10:00 03/18/24 11:25 03/18/24 12:00 Temperature 99.7 F H Pulse Rate 90 86 Respiratory Rate 20 Blood Pressure 126/55 L Pulse Oximetry 96 Oxygen Delivery Room Air Oxygen Flow Rate 03/18/24 14:22 03/18/24 12:00 03/18/24 14:00 Temperature 97.7 F Pulse Rate 91 84 89 Respiratory Rate 20 Blood Pressure 144/61 H Pulse Oximetry 97 Oxygen Delivery Room Air Oxygen Flow Rate 03/18/24 15:28 03/18/24 15:38 03/18/24 15:48 Temperature Pulse Rate 82 83 82 Respiratory Rate 21 H 24 H 27 H Blood Pressure 118/52 L 116/59 L 131/59 L Pulse Oximetry 97 96 97 Oxygen Delivery Room Air Room Air Room Air Oxygen Flow Rate 03/18/24 16:00 03/18/24 16:00 03/18/24 16:00 Temperature 98.2 F Pulse Rate 85 87 Respiratory Rate 18 Blood Pressure 132/53 L Pulse Oximetry 95 95 Oxygen Delivery Nasal Cannula Oxygen Flow Rate 2 03/18/24 19:58 03/18/24 20:00 03/19/24 00:27 Temperature 98.6 F 100 F H Pulse Rate 87 87 93 Respiratory Rate 20 20 20 Blood Pressure 114/42 L 126/47 L Pulse Oximetry 98 98 98 Oxygen Delivery Nasal Cannula Oxygen Flow Rate 2 03/19/24 06:45 03/19/24 08:13 Temperature 99.1 F Pulse Rate 79 Respiratory Rate Blood Pressure Pulse Oximetry 95 Oxygen Delivery Room Air Oxygen Flow Rate Intake/Output Intake/Output: Intake & Output 03/16/24 03/17/24 03/18/24 03/19/24 23:59 23:59 23:59 23:59 Intake Total 1050 1017.5 880 Output Total 602 100 Balance 1050 415.5 780 Meds/Results Medications: Active Medications Generic Name Dose Route Start Last Admin Trade Name Freq PRN Reason Stop Dose Admin Hydrocodone Bitart/Acetaminophen 1 tab 03/18/24 02:02 Hydrocodone/Acetaminophen (*Crx) 10-325 Mg Tablet PO QHS PRN Pain 4-6 Baclofen 10 mg 03/18/24 21:00 03/18/24 21:06 Baclofen 10 Mg Tablet PO 10 mg QHS JOSE ANTONIO Administration Docusate Sodium 200 mg 03/18/24 09:00 03/19/24 07:56 Docusate Sodium 100 Mg Capsule PO Not Given Q12HR [facility] Enoxaparin Sodium 40 mg 03/18/24 12:55 03/19/24 08:06 Enoxaparin 40 Mg/0.4 Ml Syringe SUB-Q 40 mg DAILY JOSE ANTONIO Administration Fish Oil 1 gm 03/18/24 12:55 03/19/24 08:06 [place] 3 Polyunsat Fatty Acids 1 Gm Cap PO 1 gm DAILY JOSE ANTONIO
--- NOTE | 2024-03-19 11:33 | P.PNIM_ITS ---
Progress Note: A&P Assessment and Plan (1) Pneumonia: Code(s): J18.9 - Pneumonia, unspecified organism Status: Acute Assessment and Plan: 03/18/24: * Chest x-ray showing patchy bilateral lower lung airspace disease * Continue Rocephin and azithromycin * Blood cultures were obtained and are pending * MRSA negative * D/C Vancomycin 03/19/24: * Switched azithromycin to oral * Continue cefepime 2 g * Blood culture showing no growth to date on preliminary read (2) UTI (urinary tract infection): Code(s): N39.0 - Urinary tract infection, site not specified Status: Acute Assessment and Plan: 03/18/24: * UA showed 2+ urine protein, 1+ urine blood, 1+ leukocyte, 6-10 urine RBC, 21- 50 urine WBC. * Urine and blood cultures were obtained and are pending * Continue cefepime 03/19/24: * Urine culture showing Gram-negative bacilli on preliminary read * Continue cefepime (3) Acute pyelonephritis: Code(s): N10 - Acute pyelonephritis Status: Acute Assessment and Plan: 03/18/24: * Continue cefepime * CT of abdomen and pelvis shown possible bilateral renal inflammatory changes as can be seen with ascending infection * Urology consulted and following 03/19/24: * Continue cefepime * Urine culture showing Gram-negative bacilli on preliminary read (4) Duodenal ulcer: Code(s): K26.9 - Duodenal ulcer, unspecified as acute or chronic, without hemorrhage or perforation Status: Acute Assessment and Plan: 03/18/24: * CT of the abdomen pelvis shows moderate duodenitis with possible wide neck 1.5 cm duodenal ulcer * Continue Protonix b.i.d. * Continue Carafate * GI consulted * plan for EGD today * NPO for now 03/19/24: * EGD showing gastritis/duodenitis with duodenal and gastric ulcers, multiple biopsies were taking for pathology and H pylori testing * Continue Protonix 40 mg b.i.d. * Avoid NSAIDs * Resume diet as tolerated (5) Hypothyroidism: Qualifiers: Hypothyroidism type: acquired Qualified Code(s): E03.9 - Hypothyroidism, unspecified Code(s): E03.9 - Hypothyroidism, unspecified Status: Acute Assessment and Plan: 03/18/24: * Continue Synthroid 03/19/24: * No change to current treatment plan (6) Hypertension: Qualifiers: Hypertension type: primary hypertension Qualified Code(s): I10 - Essential (primary) hypertension Code(s): I10 - Essential (primary) hypertension Status: Acute Assessment and Plan: 03/18/24: * Blood pressure ranging 126/55 to 143/52 * Continue lisinopril 03/19/24: * No change to current treatment plan Time Spent With Patient Time with patient: 25 - 35 minutes Subjective Date/time seen: 03/19/24 11:33 Interval history: Interval history: This is an 83-year-old female who presented to the hospital on 03/17/2024 with weakness. Workup in the hospital included chest x-ray showed patchy bilateral lower lung airspace disease. CT of abdomen pelvis and lumbar spine with contrast showed mild intrahepatic and extrahepatic bile duct dilatation with inflammatory change in the lex hepatis representing obstruction or cholangitis, moderate duodenitis with possible wide necked 1.5 cm duodenal ulcer, possible bilateral renal inflammatory change is seen with infection. Initial labs showed a white blood cell count of 8.2, hemoglobin 8.7, sodium 130, lactic acid was normal at 1.1, liver enzymes were normal, C reactive protein 20.1, lip
--- NOTE | 2024-03-19 11:33 | PM.IMPN ---
Progress Note: A&P Assessment and Plan (1) Pneumonia: Code(s): J18.9 - Pneumonia, unspecified organism Status: Acute Assessment and Plan: 03/18/24: Chest x-ray showing patchy bilateral lower lung airspace disease Continue Rocephin and azithromycin Blood cultures were obtained and are pending MRSA negative D/C Vancomycin 03/19/24: Switched azithromycin to oral Continue cefepime 2 g Blood culture showing no growth to date on preliminary read (2) UTI (urinary tract infection): Code(s): N39.0 - Urinary tract infection, site not specified Status: Acute Assessment and Plan: 03/18/24: UA showed 2+ urine protein, 1+ urine blood, 1+ leukocyte, 6-10 urine RBC, 21-50 urine WBC. Urine and blood cultures were obtained and are pending Continue cefepime 03/19/24: Urine culture showing Gram-negative bacilli on preliminary read Continue cefepime (3) Acute pyelonephritis: Code(s): N10 - Acute pyelonephritis Status: Acute Assessment and Plan: 03/18/24: Continue cefepime CT of abdomen and pelvis shown possible bilateral renal inflammatory changes as can be seen with ascending infection Urology consulted and following 03/19/24: Continue cefepime Urine culture showing Gram-negative bacilli on preliminary read (4) Duodenal ulcer: Code(s): K26.9 - Duodenal ulcer, unspecified as acute or chronic, without hemorrhage or perforation Status: Acute Assessment and Plan: 03/18/24: CT of the abdomen pelvis shows moderate duodenitis with possible wide neck 1.5 cm duodenal ulcer Continue Protonix b.i.d. Continue Carafate GI consulted plan for EGD today NPO for now 03/19/24: EGD showing gastritis/duodenitis with duodenal and gastric ulcers, multiple biopsies were taking for pathology and H pylori testing Continue Protonix 40 mg b.i.d. Avoid NSAIDs Resume diet as tolerated (5) Hypothyroidism: Qualifiers: Hypothyroidism type: acquired Qualified Code(s): E03.9 - Hypothyroidism, unspecified Code(s): E03.9 - Hypothyroidism, unspecified Status: Acute Assessment and Plan: 03/18/24: Continue Synthroid 03/19/24: No change to current treatment plan (6) Hypertension: Qualifiers: Hypertension type: primary hypertension Qualified Code(s): I10 - Essential (primary) hypertension Code(s): I10 - Essential (primary) hypertension Status: Acute Assessment and Plan: 03/18/24: Blood pressure ranging 126/55 to 143/52 Continue lisinopril 03/19/24: No change to current treatment plan Time Spent With Patient Time with patient: 25 - 35 minutes Subjective Date/time seen: 03/19/24 11:33 Interval history: Interval history: This is an 83-year-old female who presented to the hospital on 03/17/2024 with weakness. Workup in the hospital included chest x-ray showed patchy bilateral lower lung airspace disease. CT of abdomen pelvis and lumbar spine with contrast showed mild intrahepatic and extrahepatic bile duct dilatation with inflammatory change in the lex hepatis representing obstruction or cholangitis, moderate duodenitis with possible wide necked 1.5 cm duodenal ulcer, possible bilateral renal inflammatory change is seen with infection. Initial labs showed a white blood cell count of 8.2, hemoglobin 8.7, sodium 130, lactic acid was normal at 1.1, liver enzymes were normal, C reactive protein 20.1, lipase 103. UA was obtained and shown 2+ urine protein, 1+ urine blood, 1+ leukocytes, 6-10 urine RBC, 21-50 urine wbc's. MRSA was negative. Respiratory panel was negative for influenza a and B, RSV, COVID. Blood and urine cultures were obtained and are pending. Patient was given IV fluids, peridium, Protonix, Rocephin, vancomycin while in the ED. urology and GI were consulted. 03/19/24: Patient denies any new complaints today. EGD performed yesterday showed gastritis/duodenitis with gastr
[2024-03-19] MEDS: ERTAPENEM 1 GM/NS 50 ML 1 GM/50 ML BAG IVPB (13:03)
[2024-03-19 14:00] VITALS: BP 106/59; PULSE 86; RESP 18; TEMP 36.7; O2SAT 97
[2024-03-19] MEDS: LIDOCAINE HCL 1% LOCAL INJ 2 ML AMPUL 5 ML INFILTRATE (14:00)
[2024-03-19] MEDS: ACETAMINOPHEN 325 MG TABLET 650 MG PO ×2 (14:24→20:57)
--- NOTE | 2024-03-19 14:28 | WPDGIPROGNO ---
Progress Note: A&P Assessment and Plan (1) Peptic ulcer disease: Code(s): K27.9 - Peptic ulcer, site unspecified, unspecified as acute or chronic, without hemorrhage or perforation Status: Acute Assessment and Plan: noted ulcerative gastritis and duodenal ulcer- non bleeding continue with ppi twice daily and advised to discontinue nsaid's pending bx no more signs of bleeding (2) Early satiety: Code(s): R68.81 - Early satiety Status: Acute Assessment and Plan: probably from egd finding monitor (3) Acute blood loss anemia: Code(s): D62 - Acute posthemorrhagic anemia Status: Acute Assessment and Plan: h/h now stable (4) NSAID long-term use: Code(s): Z79.1 - senior living (current) use of non-steroidal anti-inflammatories (NSAID) Status: Acute Assessment and Plan: discontinue (5) Acute pyelonephritis: Code(s): N10 - Acute pyelonephritis Status: Acute Assessment and Plan: on rx by urology (6) Duodenal ulcer: Code(s): K26.9 - Duodenal ulcer, unspecified as acute or chronic, without hemorrhage or perforation Status: Acute (7) Duodenitis: Code(s): K29.80 - Duodenitis without bleeding Status: Acute Subjective Date/time seen: 03/19/24 14:28 Interval history: egd yesterday with non bleeding ulcers she is feeling ok today, less discomfort and eating Review of Systems Review of Systems: All systems reviewed & are unremarkable except as noted in HPI and below Exam Const: General: comfortable and no acute distress HENMT: Face/Nose/Sinus: Normal nares present Eyes: General: appearance normal, both eyes and all related structures Neck: Neck: supple Resp: Auscultation: clear to auscultation bilaterally Cardio: Rate: regular rate Rhythm: regular rhythm GI: Inspection: non-distended GI Palp: Yes Soft to palpation and No Tenderness to palpation present (GI) Auscultation: normal bowel sounds Skin: General skin exam: normal color Neuro: Speech: normal speech Motor exam (neuro): 5/5 motor strength present throughout Extrem: General: normal to inspection Psych: Mental Status: mental status grossly normal Objective Data Vital Signs Vital Signs: Vital Signs - 24 hr 03/18/24 15:28 03/18/24 15:38 03/18/24 15:48 Temperature Pulse Rate 82 83 82 Respiratory Rate 21 H 24 H 27 H Blood Pressure 118/52 L 116/59 L 131/59 L Pulse Oximetry 97 96 97 Oxygen Delivery Room Air Room Air Room Air Oxygen Flow Rate 03/18/24 16:00 03/18/24 16:00 03/18/24 16:00 Temperature 98.2 F Pulse Rate 85 87 Respiratory Rate 18 Blood Pressure 132/53 L Pulse Oximetry 95 95 Oxygen Delivery Nasal Cannula Oxygen Flow Rate 2 03/18/24 19:58 03/18/24 20:00 03/19/24 00:27 Temperature 98.6 F 100 F H Pulse Rate 87 87 93 Respiratory Rate 20 20 20 Blood Pressure 114/42 L 126/47 L Pulse Oximetry 98 98 98 Oxygen Delivery Nasal Cannula Oxygen Flow Rate 2 03/19/24 06:45 03/19/24 08:13 03/19/24 08:00 Temperature 99.1 F Pulse Rate 79 Respiratory Rate Blood Pressure Pulse Oximetry 95 Oxygen Delivery Room Air Room Air Oxygen Flow Rate 03/19/24 14:00 Temperature 98.0 F Pulse Rate 86 Respiratory Rate 18 Blood Pressure 106/59 L Pulse Oximetry 97 Oxygen Delivery Oxygen Flow Rate Intake/Output Intake/Output: Intake & Output 03/16/24 03/17/24 03/18/24 03/19/24 23:59 23:59 23:59 23:59 Intake Total 1050 1017.5 1470 Output Total 602 100 Balance 1050 415.5 1370 Meds/Results Medications: Active Medications Generic Name Dose Route Start Last Admin Trade Name Freq PRN Reason Stop Dose Admin Acetaminophen 650 mg 03/19/24 13:38 03/19/24 14:24 Acetaminophen 325 Mg Tablet PO 650 mg Q4H PRN Administration Mild Pain (1-3) or Fever Hydrocodone Bitart/Acetaminophen 1 tab 03/18/24 02:02 Hydrocodone/Acetaminophen (*Crx) 10-325 Mg
[2024-03-19] MEDS: BACLOFEN 10 MG TABLET PO (20:58)
[2024-03-19] MEDS: ZOLPIDEM TARTRATE (*CRX) 5 MG TABLET PO (20:58)
[2024-03-19] MEDS: DOCUSATE SODIUM 100 MG CAPSULE 200 MG PO (20:58)
[2024-03-19] MEDS: SALINE LOCK FLUSH 10 ML IV PUSH (20:59)
[2024-03-19 21:29] VITALS: BP 120/56; PULSE 79; RESP 14; TEMP 36.3; O2SAT 100
[2024-03-20 04:04] LABS: Glucose Point of Care 83 mg/dl (65-105)
[2024-03-20] MEDS: ACETAMINOPHEN 325 MG TABLET 650 MG PO (04:04)
[2024-03-20] MEDS: LEVOTHYROXINE SODIUM 50 MCG TABLET PO (05:50)
[2024-03-20] MEDS: SALINE LOCK FLUSH 10 ML IV PUSH ×3 (05:50→20:36)
[2024-03-20] MEDS: SUCRALFATE SUSP 100 MG/ML 10 ML UDC 1000 MG PO ×4 (05:50→20:36)
[2024-03-20 06:00] VITALS: BP 121/49; PULSE 73; RESP 18; TEMP 36.4; O2SAT 97
[2024-03-20 06:45] LABS: Basophils Percent Auto 0.7 % (0.2-1.2); Eosinophils Absolute Auto 0.2 K/mm3 (0-0.3); Eosinophils Percent Auto 3.8 % (0-4.4); Hematocrit 28.1 % (37.0-47.0); Hemoglobin 8.6 g/dL (12.0-15.0); Immature Granulocyte Absolute 0.02 K/mm3 (0.00-0.031); Immature Granulocyte Percent A 0.3 % (0-0.5); Lymphocytes Absolute Auto 0.93 K/mm3 (0.9-3.2); Lymphocytes Percent Auto 15.3 % (18.3-44.2); Mean Corpuscular HGB Conc 30.6 g/dl (32-36); Mean Corpuscular Volume 94.6 fl (80-100); Mean Platelet Volume 9.7 fl (7.4-10.4); Monocytes Absolute Auto 0.8 K/mm3 (0.1-0.6); Monocytes Percent Auto 12.9 % (2.6-8.5); Neutrophils Absolute Auto 4.1 K/mm3 (1.3-6.7); Platelet Count Result 258 k/mm3 (150-375); Red Blood Count 2.97 M/mm3 (4.2-5.4); Red Cell Distribution Width 13.2 % (11.5-14.5); White Blood Count 6.1 K/mm3 (4.5-10.0)
[2024-03-20 06:59] LABS: Alanine Aminotransferase 20 U/L (6-35); Albumin Level 2.7 g/dL (3.5-5.1); Alkaline Phosphatase 84 U/L (38-126); Anion Gap 6 mmol/L (4-12); Aspartate Amino Transferase 31 U/L (14-36); Bilirubin,Total 0.3 mg/dL (0.2-1.3); Blood Urea Nitrogen 12 mg/dL (7-17); Calcium 7.8 mg/dL (8.4-10.2); Carbon Dioxide 27 mmol/L (22-30); Chloride 104 mmol/L (98-107); Estimated CRCL calculation 58 ml/min; Estimated Glomerular Filt Rate > 60; Glucose 131 mg/dL (65-110); Potassium 3.7 mmol/L (3.4-5.0); Sodium 137 mmol/L (137-145)
[2024-03-20] MEDS: ERTAPENEM 1 GM/NS 50 ML 1 GM/50 ML BAG IVPB (09:08)
[2024-03-20] MEDS: DOCUSATE SODIUM 100 MG CAPSULE 200 MG PO ×2 (09:10→20:35)
[2024-03-20] MEDS: FLUTICASONE PROPIONATE 0.05% NA SPR 16 GM BTL (*BKC) 2 SPRAY NASAL (09:10)
[2024-03-20] MEDS: PANTOPRAZOLE 40 MG TABLET PO ×2 (09:10→20:35)
[2024-03-20] MEDS: LUBIPROSTONE 8 MCG CAPSULE PO ×2 (09:11→18:21)
[2024-03-20] MEDS: ENOXAPARIN 40 MG/0.4 ML SYRINGE SUB-Q (09:11)
[2024-03-20] MEDS: OMEGA 3 POLYUNSAT FATTY ACIDS 1 GM CAP PO (09:12)
[2024-03-20] MEDS: AZITHROMYCIN 250 MG TABLET 500 MG PO (09:12)
[2024-03-20] MEDS: lisinopriL 20 MG TABLET PO (09:13)
[2024-03-20] MEDS: HYDROcodone/acetaminophen (*CRX) 10-325 MG TABLET 1 TAB PO ×2 (09:15→20:36)
--- NOTE | 2024-03-20 09:25 | P.PNIM_ITS ---
Progress Note: A&P Assessment and Plan (1) Pneumonia: Code(s): J18.9 - Pneumonia, unspecified organism Status: Acute Assessment and Plan: 03/18/24: * Chest x-ray showing patchy bilateral lower lung airspace disease * Continue Rocephin and azithromycin * Blood cultures were obtained and are pending * MRSA negative * D/C Vancomycin 03/19/24: * Switched azithromycin to oral * Continue cefepime 2 g * Blood culture showing no growth to date on preliminary read 03/20/24: * Urine culture showed Klebsiella pneumonia a on final read with multiple drug resistance. * Patient started on Ertapenem and will require a dose daily until completed * Midline placed yesterday * Plan for home health for daily infusions * Chest x-ray today normal (2) UTI (urinary tract infection): Code(s): N39.0 - Urinary tract infection, site not specified Status: Acute Assessment and Plan: 03/18/24: * UA showed 2+ urine protein, 1+ urine blood, 1+ leukocyte, 6-10 urine RBC, 21- 50 urine WBC. * Urine and blood cultures were obtained and are pending * Continue cefepime 03/19/24: * Urine culture showing Gram-negative bacilli on preliminary read * Continue cefepime 03/20/24: * Urine culture showing Klebsiella pneumoniae on final read with multiple drug resistance * Continue Ertapenem * Home health for daily infusions * CT of abdomen and pelvis showing hepatomegaly, bilateral renal cysts, tiny right kidney stone in the upper pole, stone in the right kidney lower pole, tiny stone in the left kidney lower pole, hypodense area in the left kidney upper pole--findings consistent with presentation of ascending urinary tract infection (3) Acute pyelonephritis: Code(s): N10 - Acute pyelonephritis Status: Acute Assessment and Plan: 03/18/24: * Continue cefepime * CT of abdomen and pelvis shown possible bilateral renal inflammatory changes as can be seen with ascending infection * Urology consulted and following 03/19/24: * Continue cefepime * Urine culture showing Gram-negative bacilli on preliminary read 03/20/24: * continue Ertapenem * Urine culture showing Klebsiella pneumoniae (4) Duodenal ulcer: Code(s): K26.9 - Duodenal ulcer, unspecified as acute or chronic, without hemorrhage or perforation Status: Acute Assessment and Plan: 03/18/24: * CT of the abdomen pelvis shows moderate duodenitis with possible wide neck 1.5 cm duodenal ulcer * Continue Protonix b.i.d. * Continue Carafate * GI consulted * plan for EGD today * NPO for now 03/19/24: * EGD showing gastritis/duodenitis with duodenal and gastric ulcers, multiple biopsies were taking for pathology and H pylori testing * Continue Protonix 40 mg b.i.d. * Avoid NSAIDs * Resume diet as tolerated 03/20/24: * Continue with current treatment plan (5) Hypothyroidism: Qualifiers: Hypothyroidism type: acquired Qualified Code(s): E03.9 - Hyp othyroidism, unspecified Code(s): E03.9 - Hypothyroidism, unspecified Status: Acute Assessment and Plan: 03/18/24: * Continue Synthroid 03/19/24: * No change to current treatment plan (6) Hypertension: Qualifiers: Hypertension type: primary hypertension Qualified Code(s): I10 - Essential (primary) hypertension Code(s): I10 - Essential (primary) hypertension Status: Acute Assessment and Plan: 03/18/24: * Blood pressure ranging 126/55 to 143/52 *
--- NOTE | 2024-03-20 09:25 | ECG_ITS ---
Test Date: 2024-03-20 10:03:23 Measurements Intervals Line [place] Rate: 71 P: -55 [place]: 172 QRS: -24 QRSD: 77 T: 8 QT: 360 QTc: 392 Interpretive Statements SINUS RHYTHM BORDERLINE LEFT AXIS DEVIATION [QRS AXIS < -20] MINIMAL VOLTAGE CRITERIA FOR LVH, CONSIDER NORMAL VARIANT [MEETS CRITERIA IN ONE OF: R(aVL), S(V1), R(V5), R(V5/V6)+S(V1)] No previous ECG available for comparison Electronically Signed On 03-20-2024 13:37:10 CDT by Zoila Nava M.D.
--- NOTE | 2024-03-20 09:25 | PM.IMPN ---
Progress Note: A&P Assessment and Plan (1) Pneumonia: Code(s): J18.9 - Pneumonia, unspecified organism Status: Acute Assessment and Plan: 03/18/24: Chest x-ray showing patchy bilateral lower lung airspace disease Continue Rocephin and azithromycin Blood cultures were obtained and are pending MRSA negative D/C Vancomycin 03/19/24: Switched azithromycin to oral Continue cefepime 2 g Blood culture showing no growth to date on preliminary read 03/20/24: Urine culture showed Klebsiella pneumonia a on final read with multiple drug resistance. Patient started on Ertapenem and will require a dose daily until completed Midline placed yesterday Plan for home health for daily infusions Chest x-ray today normal (2) UTI (urinary tract infection): Code(s): N39.0 - Urinary tract infection, site not specified Status: Acute Assessment and Plan: 03/18/24: UA showed 2+ urine protein, 1+ urine blood, 1+ leukocyte, 6-10 urine RBC, 21-50 urine WBC. Urine and blood cultures were obtained and are pending Continue cefepime 03/19/24: Urine culture showing Gram-negative bacilli on preliminary read Continue cefepime 03/20/24: Urine culture showing Klebsiella pneumoniae on final read with multiple drug resistance Continue Ertapenem Home health for daily infusions CT of abdomen and pelvis showing hepatomegaly, bilateral renal cysts, tiny right kidney stone in the upper pole, stone in the right kidney lower pole, tiny stone in the left kidney lower pole, hypodense area in the left kidney upper pole--findings consistent with presentation of ascending urinary tract infection (3) Acute pyelonephritis: Code(s): N10 - Acute pyelonephritis Status: Acute Assessment and Plan: 03/18/24: Continue cefepime CT of abdomen and pelvis shown possible bilateral renal inflammatory changes as can be seen with ascending infection Urology consulted and following 03/19/24: Continue cefepime Urine culture showing Gram-negative bacilli on preliminary read 03/20/24: continue Ertapenem Urine culture showing Klebsiella pneumoniae (4) Duodenal ulcer: Code(s): K26.9 - Duodenal ulcer, unspecified as acute or chronic, without hemorrhage or perforation Status: Acute Assessment and Plan: 03/18/24: CT of the abdomen pelvis shows moderate duodenitis with possible wide neck 1.5 cm duodenal ulcer Continue Protonix b.i.d. Continue Carafate GI consulted plan for EGD today NPO for now 03/19/24: EGD showing gastritis/duodenitis with duodenal and gastric ulcers, multiple biopsies were taking for pathology and H pylori testing Continue Protonix 40 mg b.i.d. Avoid NSAIDs Resume diet as tolerated 03/20/24: Continue with current treatment plan (5) Hypothyroidism: Qualifiers: Hypothyroidism type: acquired Qualified Code(s): E03.9 - Hypothyroidism, unspecified Code(s): E03.9 - Hypothyroidism, unspecified Status: Acute Assessment and Plan: 03/18/24: Continue Synthroid 03/19/24: No change to current treatment plan (6) Hypertension: Qualifiers: Hypertension type: primary hypertension Qualified Code(s): I10 - Essential (primary) hypertension Code(s): I10 - Essential (primary) hypertension Status: Acute Assessment and Plan: 03/18/24: Blood pressure ranging 126/55 to 143/52 Continue lisinopril 03/19/24: No change to current treatment plan Time Spent With Patient Time with patient: Greater than 35 minutes Subjective Date/time seen: 03/20/24 09:25 Interval history: Interval history: This is an 83-year-old female who presented to the hospital on 03/17/2024 with weakness. Workup in the hospital included chest x-ray showed patchy bilateral lower lung airspace disease. CT of abdomen pelvis and lumbar spine with contrast showed mild intrahepatic and extrahepatic bile duct dilatation with inf
[2024-03-20 10:12] LABS: Troponin I < 0.012 ng/mL (0.000-0.034)
--- NOTE | 2024-03-20 10:53 | PC.NURSE ---
This RN rounded on pt at 0900. Pt appeared to be sleeping comfortably. This RN to another pt room, when called by another RN that this pt was crying and yelling out. This RN to pt room. Pt states right flank pain that worsens with activity. Pt ambulated to bathroom with gait belt and walker. Pt crying and screaming in pain. Obtained norco for pt. This RN ambulated pt back towards bed, when pt stated she was not going to make that she was going to fall. This RN used gaitbelt and called for charge. Chair placed under pt, who was able to sit down. At that time, pt clutched chest. Pt vitals stable with BP 130s/70s, HR 96 R 20 o2 sat 94 on room air, temp 97.1. Pt diaphoretic. Call to [facility] made. Trops, EKG, CXR and CT c contrast A/P. All values returning negative at this time. Pt states pain is relieved at this time. This RN will continue to monitor.
[2024-03-20] MEDS: GABAPENTIN 300 MG CAPSULE PO ×3 (12:16→20:40)
--- NOTE | 2024-03-20 12:46 | WPDGIPROGNO ---
Progress Note: A&P Assessment and Plan (1) Peptic ulcer disease: Code(s): K27.9 - Peptic ulcer, site unspecified, unspecified as acute or chronic, without hemorrhage or perforation Status: Acute Assessment and Plan: noted ulcerative gastritis and duodenal ulcer- non bleeding path report with reactive changes in stomach, no h pylori continue with ppi twice daily and advised to discontinue nsaid's no more signs of bleeding more comfortable will follow only as needed (2) Early satiety: Code(s): R68.81 - Early satiety Status: Acute Assessment and Plan: probably from egd finding monitor (3) Acute blood loss anemia: Code(s): D62 - Acute posthemorrhagic anemia Status: Acute Assessment and Plan: h/h low but stable (4) NSAID long-term use: Code(s): Z79.1 - shelter (current) use of non-steroidal anti-inflammatories (NSAID) Status: Acute Assessment and Plan: discontinue (5) Acute pyelonephritis: Code(s): N10 - Acute pyelonephritis Status: Acute Assessment and Plan: on rx by urology (6) Duodenal ulcer: Code(s): K26.9 - Duodenal ulcer, unspecified as acute or chronic, without hemorrhage or perforation Status: Acute (7) Duodenitis: Code(s): K29.80 - Duodenitis without bleeding Status: Acute Subjective Date/time seen: 03/20/24 12:46 Interval history: pain has improved and eating more, no signs of bleeding Review of Systems Review of Systems: All systems reviewed & are unremarkable except as noted in HPI and below Exam Const: General: comfortable and no acute distress HENMT: Face/Nose/Sinus: Normal nares present Eyes: General: appearance normal, both eyes and all related structures Neck: Neck: supple Resp: Auscultation: clear to auscultation bilaterally Cardio: Rate: regular rate Rhythm: regular rhythm GI: Inspection: non-distended GI Palp: Yes Soft to palpation and No Tenderness to palpation present (GI) Auscultation: normal bowel sounds Skin: General skin exam: normal color Neuro: Speech: normal speech Motor exam (neuro): 5/5 motor strength present throughout Extrem: General: normal to inspection Psych: Mental Status: mental status grossly normal Objective Data Vital Signs Vital Signs: Vital Signs - 24 hr 03/19/24 14:00 03/19/24 21:29 03/19/24 20:00 Temperature 98.0 F 97.4 F L Pulse Rate 86 79 Respiratory Rate 18 14 Blood Pressure 106/59 L 120/56 L Pulse Oximetry 97 100 Oxygen Delivery Room Air 03/20/24 06:00 Temperature 97.6 F Pulse Rate 73 Respiratory Rate 18 Blood Pressure 121/49 L Pulse Oximetry 97 Oxygen Delivery Intake/Output Intake/Output: Intake & Output 03/17/24 03/18/24 03/19/24 03/20/24 23:59 23:59 23:59 23:59 Intake Total 1050 1017.5 1710 100 Output Total 602 350 4 Balance 1050 415.5 1360 96 Meds/Results Medications: Active Medications Generic Name Dose Route Start Last Admin Trade Name Freq PRN Reason Stop Dose Admin Acetaminophen 650 mg 03/19/24 13:38 03/20/24 04:04 Acetaminophen 325 Mg Tablet PO 650 mg Q4H PRN Administration Mild Pain (1-3) or Fever Hydrocodone Bitart/Acetaminophen 1 tab 03/18/24 02:02 03/20/24 09:15 Hydrocodone/Acetaminophen (*Crx) 10-325 Mg Tablet PO 1 tab QHS PRN Administration Pain 4-6 Azithromycin 500 mg 03/20/24 09:00 03/20/24 09:12 Azithromycin 250 Mg Tablet PO 03/22/24 09:01 500 mg DAILY JOSE ANTONIO Administration Baclofen 10 mg 03/18/24 21:00 03/19/24 20:58 Baclofen 10 Mg Tablet PO 10 mg QHS JOSE ANTONIO Administration Docusate Sodium 200 mg 03/18/24 09:00 03/20/24 09:10 Docusate Sodium 100 Mg Capsule PO 200 mg Q12HR JOSE ANTONIO Administration Enoxaparin Sodium 40 mg 03/18/24 12:55 03/20/24 09:11 Enoxaparin 40 Mg/0.4 Ml Syringe SUB-Q 40 mg DAILY JOSE ANTONIO Administration Fish Oil 1 gm 03/18/24 12:55 03/20/24 09:12 Alleene 3 Polyu
[2024-03-20 13:06] LABS: Troponin I < 0.012 ng/mL (0.000-0.034)
[2024-03-20 14:00] VITALS: BP 121/58; PULSE 74; RESP 18; TEMP 37.1; O2SAT 100
--- NOTE | 2024-03-20 14:59 | WPDUROPN2 ---
Progress Note: A&P Assessment and Plan (1) UTI (urinary tract infection): Code(s): N39.0 - Urinary tract infection, site not specified Status: Acute Assessment and Plan: Urine culture with growth of Klebsiella. Continue antibiotics tailored to urine culture. Remaining afebrile today. WBC 6.1 (2) Acute pyelonephritis: Code(s): N10 - Acute pyelonephritis Status: Acute Assessment and Plan: Suggested on initial CT, though she is relatively asymptomatic. Repeat CT obtained today due to worsened back/flank pain with no acute findings, no evidence of pyelo, and no need for acute urologic intervention. (3) Kidney stone: Code(s): N20.0 - Calculus of kidney Status: Acute Assessment and Plan: Nonobstructing punctate bilateral renal stones that do not require intervention. Continue to observe Subjective Subjective Date/Time Seen: 03/20/24 14:59 Interval history: Seen this morning and was having worsened back and flank pain. Endorsed 8/10 right kidney pain. No N/V/F/C. Review of Systems Review of Systems: All systems reviewed & are unremarkable except as noted in HPI and below Exam Narrative: General: Awake, alert, comfortable, no acute distress HEENT: Normocephalic, atraumatic, sclerae anicteric Respiratory: Normal respiratory effort, no accessory muscle use Abdomen: Nondistended, soft, nontender Skin: Normal coloration, warm and dry Neurologic: No focal neuro deficits noted Psychiatric: Appropriate mood and affect, judgment and insight intact Objective Data Vital Signs Vital Signs: Vital Signs - 24 hr 03/19/24 21:29 03/19/24 20:00 03/20/24 06:00 Temperature 97.4 F L 97.6 F Pulse Rate 79 73 Respiratory Rate 14 18 Blood Pressure 120/56 L 121/49 L Pulse Oximetry 100 97 Oxygen Delivery Room Air 03/20/24 13:31 Temperature Pulse Rate Respiratory Rate Blood Pressure Pulse Oximetry Oxygen Delivery Room Air Intake/Output Intake/Output: Intake & Output 03/17/24 03/18/24 03/19/24 03/20/24 23:59 23:59 23:59 23:59 Intake Total 1050 1017.5 1710 100 Output Total 602 350 4 Balance 1050 415.5 1360 96 Meds/Results Medications: Active Medications Generic Name Dose Route Start Last Admin Trade Name Freq PRN Reason Stop Dose Admin Acetaminophen 650 mg 03/19/24 13:38 03/20/24 04:04 Acetaminophen 325 Mg Tablet PO 650 mg Q4H PRN Administration Mild Pain (1-3) or Fever Hydrocodone Bitart/Acetaminophen 1 tab 03/18/24 02:02 03/20/24 09:15 Hydrocodone/Acetaminophen (*Crx) 10-325 Mg Tablet PO 1 tab QHS PRN Administration Pain 4-6 Azithromycin 500 mg 03/20/24 09:00 03/20/24 09:12 Azithromycin 250 Mg Tablet PO 03/22/24 09:01 500 mg DAILY JOSE ANTONIO Administration Baclofen 10 mg 03/18/24 21:00 03/19/24 20:58 Baclofen 10 Mg Tablet PO 10 mg QHS JOSE ANTONIO Administration Docusate Sodium 200 mg 03/18/24 09:00 03/20/24 09:10 Docusate Sodium 100 Mg Capsule PO 200 mg Q12HR JOSE ANTONIO Administration Enoxaparin Sodium 40 mg 03/18/24 12:55 03/20/24 09:11 Enoxaparin 40 Mg/0.4 Ml Syringe SUB-Q 40 mg DAILY JOSE ANTONIO Administration Fish Oil 1 gm 03/18/24 12:55 03/20/24 09:12 [place] 3 Polyunsat Fatty Acids 1 Gm Cap PO 1 gm DAILY JOSE ANTONIO Administration Fluticasone Propionate 2 spray 03/18/24 09:00 03/19/24 08:06 Fluticasone Propionate 0.05% Na Spr 16 Gm Btl (*Bkc) NASAL 2 spray DAILY JOSE ANTONIO Administration Gabapentin 300 mg 03/18/24 16:00 03/20/24 12:16 Gabapentin 300 Mg Capsule PO 300 mg 1000,1600,2000 JOSE ANTONIO Administration Hydromorphone HCl 0.5 mg 03/18/24 14:08 03/18/24 21:07 Hydromorphone Hcl Inj (*Crx) 1 Mg/Ml Syr IV PUSH 0.5 mg Q3H PRN Administration Pain Rated 7-10 Ertapenem 1 gm in 50 mls @ 100 mls/hr 03/19/24 12:45 03/20/24 09:08 Invanz 1 Gm/Ns 50 Ml IVPB 03/25/24 09:29 100 mls/hr DAILY JOSE ANTONIO Administration Levothyroxine [place]
[2024-03-20] MEDS: BACLOFEN 10 MG TABLET PO (20:35)
[2024-03-20] MEDS: ZOLPIDEM TARTRATE (*CRX) 5 MG TABLET PO (20:36)
[2024-03-20 20:38] VITALS: BP 133/64; PULSE 87; RESP 16; TEMP 37; O2SAT 100
[2024-03-21 06:00] VITALS: BP 135/62; PULSE 83; RESP 16; TEMP 36.8; O2SAT 100
[2024-03-21] MEDS: LEVOTHYROXINE SODIUM 50 MCG TABLET PO (06:16)
[2024-03-21] MEDS: SALINE LOCK FLUSH 10 ML IV PUSH (06:16)
[2024-03-21] MEDS: SUCRALFATE SUSP 100 MG/ML 10 ML UDC 1000 MG PO ×2 (06:16→12:39)
[2024-03-21] MEDS: ACETAMINOPHEN 325 MG TABLET 650 MG PO (06:17)
[2024-03-21 06:23] LABS: Basophils Absolute Auto 0.1 K/mm3 (0.0-0.1); Basophils Percent Auto 0.8 % (0.2-1.2); Eosinophils Absolute Auto 0.3 K/mm3 (0-0.3); Eosinophils Percent Auto 4.7 % (0-4.4); Hematocrit 30.6 % (37.0-47.0); Hemoglobin 9.4 g/dL (12.0-15.0); Immature Granulocyte Absolute 0.03 K/mm3 (0.00-0.031); Immature Granulocyte Percent A 0.5 % (0-0.5); Lymphocytes Absolute Auto 1.89 K/mm3 (0.9-3.2); Lymphocytes Percent Auto 29.9 % (18.3-44.2); Mean Corpuscular HGB Conc 30.7 g/dl (32-36); Mean Corpuscular Hemoglobin 28.8 pg (26-34); Mean Corpuscular Volume 93.9 fl (80-100); Mean Platelet Volume 9.8 fl (7.4-10.4); Monocytes Absolute Auto 0.6 K/mm3 (0.1-0.6); Monocytes Percent Auto 10.1 % (2.6-8.5); Neutrophils Absolute Auto 3.4 K/mm3 (1.3-6.7); Platelet Count Result 336 k/mm3 (150-375); Red Blood Count 3.26 M/mm3 (4.2-5.4); Red Cell Distribution Width 13.1 % (11.5-14.5); White Blood Count 6.3 K/mm3 (4.5-10.0)
[2024-03-21 08:18] LABS: Alanine Aminotransferase 22 U/L (6-35); Albumin Level 3.1 g/dL (3.5-5.1); Alkaline Phosphatase 93 U/L (38-126); Anion Gap 8 mmol/L (4-12); Aspartate Amino Transferase 32 U/L (14-36); Bilirubin,Total 0.3 mg/dL (0.2-1.3); Blood Urea Nitrogen 11 mg/dL (7-17); Calcium 8.3 mg/dL (8.4-10.2); Carbon Dioxide 25 mmol/L (22-30); Chloride 105 mmol/L (98-107); Estimated CRCL calculation 66 ml/min; Estimated Glomerular Filt Rate > 60; Glucose 102 mg/dL (65-110); Potassium 3.9 mmol/L (3.4-5.0); Sodium 138 mmol/L (137-145)
[2024-03-21] MEDS: AZITHROMYCIN 250 MG TABLET 500 MG PO (10:08)
[2024-03-21] MEDS: lisinopriL 20 MG TABLET PO (10:08)
[2024-03-21] MEDS: FLUTICASONE PROPIONATE 0.05% NA SPR 16 GM BTL (*BKC) 2 SPRAY NASAL (10:08)
[2024-03-21] MEDS: PANTOPRAZOLE 40 MG TABLET PO (10:08)
[2024-03-21] MEDS: DOCUSATE SODIUM 100 MG CAPSULE 200 MG PO (10:08)
[2024-03-21] MEDS: ENOXAPARIN 40 MG/0.4 ML SYRINGE SUB-Q (10:09)
[2024-03-21] MEDS: OMEGA 3 POLYUNSAT FATTY ACIDS 1 GM CAP PO (10:09)
[2024-03-21] MEDS: LUBIPROSTONE 8 MCG CAPSULE PO (10:09)
[2024-03-21] MEDS: ERTAPENEM 1 GM/NS 50 ML 1 GM/50 ML BAG IVPB (10:09)
[2024-03-21] MEDS: GABAPENTIN 300 MG CAPSULE PO (10:12)
--- NOTE | 2024-03-21 10:29 | PM.DS ---
DS: Admitting Diagnosis Discharge Date 03/21/24 Admitting Diagnosis Pneumonia Acute pyelonephritis Duodenal ulcer Left foot drop GERD UTI DS: Discharge Diagnosis Discharge Diagnosis (1) UTI (urinary tract infection): Code(s): N39.0 - Urinary tract infection, site not specified Status: Acute (2) Acute pyelonephritis: Code(s): N10 - Acute pyelonephritis Status: Acute (3) Kidney stone: Code(s): N20.0 - Calculus of kidney Status: Acute (4) Hypertension: Qualifiers: Hypertension type: primary hypertension Qualified Code(s): I10 - Essential (primary) hypertension Code(s): I10 - Essential (primary) hypertension Status: Acute (5) Hypothyroidism: Qualifiers: Hypothyroidism type: acquired Qualified Code(s): E03.9 - Hypothyroidism, unspecified Code(s): E03.9 - Hypothyroidism, unspecified Status: Acute (6) Pneumonia: Code(s): J18.9 - Pneumonia, unspecified organism Status: Acute DS: Summary Hospital Course Reason for hospitalization: Pneumonia Acute pyelonephritis Duodenal ulcer Left foot drop GERD UTI Hospital Course: This is an 83-year-old female who presented to the hospital on 03/17/2024 with weakness. Workup in the hospital included chest x-ray showed patchy bilateral lower lung airspace disease. CT of abdomen pelvis and lumbar spine with contrast showed mild intrahepatic and extrahepatic bile duct dilatation with inflammatory change in the lex hepatis representing obstruction or cholangitis, moderate duodenitis with possible wide necked 1.5 cm duodenal ulcer, possible bilateral renal inflammatory change is seen with infection. Initial labs showed a white blood cell count of 8.2, hemoglobin 8.7, sodium 130, lactic acid was normal at 1.1, liver enzymes were normal, C reactive protein 20.1, lipase 103. UA was obtained and shown 2+ urine protein, 1+ urine blood, 1+ leukocytes, 6-10 urine RBC, 21-50 urine wbc's. MRSA was negative. Respiratory panel was negative for influenza a and B, RSV, COVID. Blood and urine cultures were obtained and are pending. Patient was given IV fluids, peridium, Protonix, Rocephin, vancomycin while in the ED. Patient started on Azithromycin and Ertapenem. Urine culture came back with Klebsiella pneumoniae on final read, blood culture showing no growth to date on preliminary read. Patient had EGD on 03/18/2024 which showed gastritis, duodenitis, duodenal ulcer. GI recommends to continue Protonix and Carafate. Patient is stable for discharge at this time. She will need to follow up with her primary care physician in 1 week. She will be discharged with IV Ertapenem and will have home health for the infusions. Final diagnosis: Pneumonia, acute pyelonephritis, duodenal ulcer, acute urinary tract infection Status at Discharge Cognitive/behavioral status at discharge: Alert oriented x3 Functional status at discharge: uses cane/walker Overall status at discharge: patient is progressing back to baseline Time Spent with Patient Time attestation: Total time spent providing and/or coordinating discharge services: Time spent: Greater than 30 minutes Exam Narrative: General: In no acute distress, well nourished Cardiac: Normal S1 and S2. RRR, Murmur noted, no gallops or friction rubs, peripheral pulses intact. Respiratory: Lungs clear to auscultation, no adventitious lung sounds, currently on room air Gastrointestinal: soft, non-distended, non-tender, normoactive bowel sounds. : voiding without difficulty. Neuro: Alert and oriented x4 DS: Data Data Completed and Pending Pending studies at discharge: 03/18/24 15:22 Surgical [PTH] Routine Labs on day of discharge: Labs from last 24 hours 03/21/24 03/20/24 05:56 12:33 WBC 6.3 RBC 3.26 L Hgb 9.4 L Hct 30.6 L MCV 93.9 MCH 28.8 MCHC 30.7 L RDW 13.1 Plt Count 336 MPV 9.8 Immature Gran % (Auto) 0.5 Neut %
--- NOTE | 2024-03-21 11:09 | WPDUROPN2 ---
Progress Note: A&P Assessment and Plan (1) UTI (urinary tract infection): Code(s): N39.0 - Urinary tract infection, site not specified Status: Acute Assessment and Plan: Urine culture with growth of Klebsiella. Continue antibiotics tailored to urine culture. Remaining afebrile. WBC 6.3 (2) Acute pyelonephritis: Code(s): N10 - Acute pyelonephritis Status: Acute Assessment and Plan: Suggested on initial CT, though she is relatively asymptomatic. Repeat CT obtained 03/20/24 due to worsened back/flank pain. Reviewed by Dr. Santos (who reviewed with radiology); no concern for mass or other acute findings. No indication for acute urologic intervention. Her pain is likely related to sciatica as well as duodenal ulcer and not felt to be a urologic issue. (3) Kidney stone: Code(s): N20.0 - Calculus of kidney Status: Acute Assessment and Plan: Nonobstructing punctate bilateral renal stones that do not require intervention. Continue to observe Plan Urology will sign off at this time. Please call with any concerns. Subjective Subjective Date/Time Seen: 03/21/24 11:09 Interval history: Reyna is feeling much better. Her flank pain has resolved. She denies nausea, vomiting, fever, or chills. Review of Systems Review of Systems: All systems reviewed & are unremarkable except as noted in HPI and below Exam Narrative: General: Awake, alert, comfortable, no acute distress HEENT: Normocephalic, atraumatic, sclerae anicteric Respiratory: Normal respiratory effort, no accessory muscle use Abdomen: Nondistended, soft, nontender Skin: Normal coloration, warm and dry Neurologic: No focal neuro deficits noted Psychiatric: Appropriate mood and affect, judgment and insight intact Objective Data Vital Signs Vital Signs: Vital Signs - 24 hr 03/20/24 13:31 03/20/24 14:00 03/20/24 20:38 Temperature 98.7 F 98.6 F Pulse Rate 74 87 Respiratory Rate 18 16 Blood Pressure 121/58 L 133/64 Pulse Oximetry 100 100 Oxygen Delivery Room Air 03/21/24 06:00 03/21/24 09:17 Temperature 98.2 F Pulse Rate 83 Respiratory Rate 16 Blood Pressure 135/62 Pulse Oximetry 100 Oxygen Delivery Room Air Intake/Output Intake/Output: Intake & Output 03/18/24 03/19/24 03/20/24 03/21/24 23:59 23:59 23:59 23:59 Intake Total 1017.5 1710 390 840 Output Total 602 350 404 Balance 415.5 1360 -14 840 Meds/Results Medications: Active Medications Generic Name Dose Route Start Last Admin Trade Name Freq PRN Reason Stop Dose Admin Acetaminophen 650 mg 03/19/24 13:38 03/21/24 06:17 Acetaminophen 325 Mg Tablet PO 650 mg Q4H PRN Administration Mild Pain (1-3) or Fever Hydrocodone Bitart/Acetaminophen 1 tab 03/18/24 02:02 03/20/24 20:36 Hydrocodone/Acetaminophen (*Crx) 10-325 Mg Tablet PO 1 tab QHS PRN Administration Pain 4-6 Azithromycin 500 mg 03/20/24 09:00 03/21/24 10:08 Azithromycin 250 Mg Tablet PO 03/22/24 09:01 500 mg DAILY JOSE ANTONIO Administration Baclofen 10 mg 03/18/24 21:00 03/20/24 20:35 Baclofen 10 Mg Tablet PO 10 mg QHS JOSE ANTONIO Administration Docusate Sodium 200 mg 03/18/24 09:00 03/21/24 10:08 Docusate Sodium 100 Mg Capsule PO 200 mg Q12HR JOSE ANTONIO Administration Enoxaparin Sodium 40 mg 03/18/24 12:55 03/21/24 10:09 Enoxaparin 40 Mg/0.4 Ml Syringe SUB-Q 40 mg DAILY JOSE ANTONIO Administration Fish Oil 1 gm 03/18/24 12:55 03/21/24 10:09 [place] 3 Polyunsat Fatty Acids 1 Gm Cap PO 1 gm DAILY JOSE ANTONIO Administration Fluticasone Propionate 2 spray 03/18/24 09:00 03/20/24 09:10 Fluticasone Propionate 0.05% Na Spr 16 Gm Btl (*Bkc) NASAL 2 spray DAILY JOSE ANTONIO Administration Gabapentin 300 mg 03/18/24 16:00 03/21/24 10:12 Gabapentin 300 Mg Capsule PO 300 mg 1000,1600,2000 JOSE ANTONIO Administration Hydromorphone HCl 0.5 mg 03/18/24 14:08 03/18/24 21:07 Hydromorphone
--- NOTE | 2024-03-21 12:37 | PCPTNOTE ---
On 03/21/24, the student, [Reina Louis], provided care and completed [facility] documentation on this patient. I have reviewed the student's documentation and agree with the findings.
== END 2024-03-21 15:00 | disposition home health service (06) | DRG 689 ==
LOC: ANHED 17:38 → ANHIMU 23:58 → ANH3MEDSUR 03-19 06:33
PROVIDERS: Internal Medicine; Internal Medicine Gastroenterology; Admitting Provider Internal Medicine; Emergency Provider Physician Assistant; PCP Nurse Practitioner Family; Visit Provider Nurse Practitioner Acute Care
PROC: 0DJ08ZZ Inspection of Upper Intestinal Tract, Via Natural or Artificial Opening Endoscopic (ICD-10-PCS; CPT 43235; principal; 2024-03-18 17:00)
DX: N10 Acute pyelonephritis (principal); J18.9 Pneumonia, unspecified organism; D62 Acute posthemorrhagic anemia; K92.1 Melena; N39.0 Urinary tract infection, site not specified; I11.0 Hypertensive heart disease with heart failure; I50.9 Heart failure, unspecified; K25.9 Gastric ulcer, unspecified as acute or chronic, without hemorrhage or perforation; K26.9 Duodenal ulcer, unspecified as acute or chronic, without hemorrhage or perforation; K29.70 Gastritis, unspecified, without bleeding; K29.80 Duodenitis without bleeding; K21.9 Gastro-esophageal reflux disease without esophagitis; K59.09 Other constipation; B96.1 Klebsiella pneumoniae [K. pneumoniae] as the cause of diseases classified elsewhere; E03.9 Hypothyroidism, unspecified; E11.9 Type 2 diabetes mellitus without complications; E55.9 Vitamin D deficiency, unspecified; M54.40 Lumbago with sciatica, unspecified side; M21.372 Foot drop, left foot; Z20.822 Contact with and (suspected) exposure to COVID-19; Z85.3 Personal history of malignant neoplasm of breast; Z87.891 Personal history of nicotine dependence; Z79.1 Long term (current) use of non-steroidal anti-inflammatories (NSAID)
CPT/HCPCS: 36415; 36569; 71045; 72132; 74177; 80053; 81001; 82565; 82948; 83605; 83690; 84484; 85025; 85610; 85730; 86140; 87040; 87077; 87081; 87086; 87088; 87186; 87637; 87641; 88305; 93005; 96361; 96365; 96375; 97161; 97165; 99199; 99285; A9270; G0378; J0456; J0692; J0696; J1170; J1335; J1650; J2001; J2470; J2704; J3370; J7040; J7120; Q9967

== ENCOUNTER 2024-05-26 15:48 | Emergency (ER) | payer MEDICARE, OTHER, SELFPAY ==
[2024-05-26] VITALS (8 sets, daily range): BP systolic 120–139; BP diastolic 53–71; PULSE 66–101; RESP 16–24; TEMP 38; O2SAT 94–100
--- NOTE | ~2024-05-26 | XR_ITS ---
EXAMINATION: XR chest 2V DATE: 05/26/2024 17:32 INDICATION: Fever, cough and congestion TECHNIQUE: frontal view of the chest was obtained. COMPARISON: 03/20/2024 FINDINGS: Chronic mild elevation of the left hemidiaphragm. Streaky opacities at the left lower lung zone. Hazy opacity projecting over the left lower lung zone on the frontal projection which appears to result f rom a left paracardial fat pad. Is also accentuated by asymmetric increased lucency at the right lowe r lung zone secondary to a prior right mastectomy. Right lung is clear. No pleural effusion or pneumo thorax. Heart size is normal. Mitral annular calcification. Surgical clips at the bilateral axilla co nsistent with prior axillary lymph node dissections. Spinal stimulator lead projects of the posterior central canal at the midthoracic spine with moderate to severe thoracic spondylosis. IMPRESSION: 1. Chronic elevation the left hemidiaphragm with mild streaky opacities at the left lung base and fav or atelectasis over pneumonia. Reviewed, dictated and finalized at location A. IMPRESSION: 1. Chronic elevation the left hemidiaphragm with mild streaky opacities at the left lung base and favor atelectasis over pneumonia.
--- NOTE | ~2024-05-26 | CT_ITS ---
EXAMINATION: CT abdomen pelvis w con DATE: 05/26/2024 20:01 INDICATION: Lower abdominal pain TECHNIQUE: Computed tomography (CT) of the abdomen and pelvis was performed with 100 mL Omnipaque-350 intravenous contrast. Automated exposure control and iterative reconstruction technique were employe d. The dose-length product was 1327.29 mGy-cm. COMPARISON: 03/20/2024 FINDINGS: Chronic elevation the left hemidiaphragm with mild left basilar atelectasis. Small calcified nodules at the bilateral lung bases with calcified bilateral hilar lymph nodes consistent with old granulomat ous disease. No pneumonia, pulmonary edema or pleural effusion. Heart size normal. No pericardial eff usion. Status post right mastectomy. 1 cm low-attenuation lesion at the dome of the liver most likely a cyst or hemangioma. Cholecystectomy clips the gallbladder fossa. Again seen are few small low-atte nuation splenic lesions. 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 Pancreas, bilate ral adrenal glands are normal. There are bilateral renal cysts as well as bilateral nonobstructing ne phrolithiasis with 3 stones in in each kidney the largest each kidney measuring up to 4 mm. No ureter al stones or hydronephrosis. Multiple phleboliths in the pelvis and along the bilateral gonadal veins . Bladder is normal. The uterus is not identified and has likely been surgically resected. Small knuc kle of small bowel extends into a small spigelian hernia along the right rectus abdominis muscle. Carly rt segment of transverse colon extends into the more cephalad small midline ventral hernia at the cep halad aspect of the midline surgical scar. There are couple anastomotic suture lines along the small bowel in the central and right abdomen. No bowel obstruction. No free intraperitoneal gas or fluid. N o pathologically enlarged abdominal or pelvic lymphadenopathy. L2-L5 laminectomies with L2-L5 instrum ented posterior spinal fusion with bilateral vertical rock and pedicle screw fixation. There is also a nterior spinal fusion at L3-S1. Spinal stimulator lead extends cephalad to the lower thoracic central canal and beyond the cephalad margin of the [id number]. Additional lesion potentially peripheral progressive stimulation extend to the cephalad aspect of the bilateral vertical rock and pedicle screw fixation. IMPRESSION: 1. No acute intra-abdominal/pelvic process. 2. Bilateral nonobstructing nephrolithiasis. 3. Short loops of nonobstructed large and small bowel extend into a midline ventral hernia the more i nferior right rectus muscle spigelian hernia respectively. Reviewed, dictated and finalized at location A. IMPRESSION: 1. No acute intra-abdominal/pelvic process. 2. Bilateral nonobstructing nephrolithiasis. 3. Short loops of nonobstructed large and small bowel extend into a midline becky tral hernia the more inferior right rectus muscle spigelian hernia respectively .
--- NOTE | 2024-05-26 17:28 | ECG_ITS ---
Test Date: 2024-05-26 17:42:[address] [place] Rate: 90 P: 6 VT: 203 QRS: -29 QRSD: 89 T: 48 QT: 329 QTc: 404 Interpretive Statements SINUS RHYTHM BORDERLINE LEFT AXIS DEVIATION [QRS AXIS < -20] Compared to ECG 03/20/2024 10:03:23 No significant changes Electronically Signed On 05-27-2024 09:38:37 CDT by Zoila Nava M.D.
[2024-05-26] MEDS: ACETAMINOPHEN 500 MG TABLET 1000 MG PO (17:56)
[2024-05-26 17:58] LABS: Basophils Absolute Auto 0.1 K/mm3 (0.0-0.1); Basophils Percent Auto 0.8 % (0.2-1.2); Eosinophils Absolute Auto 0.1 K/mm3 (0-0.3); Eosinophils Percent Auto 1.1 % (0-4.4); Hemoglobin 11.3 g/dL (12.0-15.0); Immature Granulocyte Absolute 0.01 K/mm3 (0.00-0.031); Immature Granulocyte Percent A 0.2 % (0-0.5); Lymphocytes Absolute Auto 0.84 K/mm3 (0.9-3.2); Lymphocytes Percent Auto 12.7 % (18.3-44.2); Mean Corpuscular HGB Conc 30.5 g/dl (32-36); Mean Corpuscular Hemoglobin 27.4 pg (26-34); Mean Corpuscular Volume 89.8 fl (80-100); Mean Platelet Volume 9.7 fl (7.4-10.4); Monocytes Absolute Auto 0.9 K/mm3 (0.1-0.6); Monocytes Percent Auto 13.8 % (2.6-8.5); Neutrophils Absolute Auto 4.7 K/mm3 (1.3-6.7); Neutrophils Percent Auto 71.4 % (45.5-73.1); Platelet Count Result 174 k/mm3 (150-375); Red Blood Count 4.12 M/mm3 (4.2-5.4); White Blood Count 6.6 K/mm3 (4.5-10.0)
[2024-05-26 18:09] LABS: Lipase 73 U/L (23-300)
[2024-05-26 18:11] LABS: Alanine Aminotransferase 18 U/L (6-35); Albumin Level 3.7 g/dL (3.5-5.1); Alkaline Phosphatase 96 U/L (38-126); Anion Gap 6 mmol/L (4-12); Aspartate Amino Transferase 28 U/L (14-36); Bilirubin,Total 0.4 mg/dL (0.2-1.3); Blood Urea Nitrogen 18 mg/dL (7-17); Calcium 8.7 mg/dL (8.4-10.2); Carbon Dioxide 26 mmol/L (22-30); Chloride 103 mmol/L (98-107); Estimated CRCL calculation 53 ml/min; Estimated Glomerular Filt Rate 60; Glucose 98 mg/dL (65-110); Potassium 3.8 mmol/L (3.4-5.0); Sodium 135 mmol/L (137-145)
[2024-05-26 18:12] LABS: Lactic Acid Reflex 0.9 mmol/L (0.7-2.0)
--- NOTE | 2024-05-26 18:12 | ED.GENADULT ---
HPI - General Adult General Chief complaint: Unspecified Stated complaint: congestion, sciatic & bladder pain Time Seen by Provider: 05/26/24 17:05 Source: patient Mode of arrival: ambulatory Limitations: no limitations History of Present Illness HPI narrative: Patient is an 83-year-old female who presents the ED with multiple complaints. Patient reports she has been sick since Sunday with cough, congestion, body aches, subjective fevers, sore throat, chest tightness, fatigue. She also reports having lower abdominal achiness, and feeling as though she cannot fully empty her bladder. Denies dysuria/hematuria. Denies shortness of breath. Denies N/V. States stools have been light colored and dry. Also states having chronic sciatic type pain. Takes [place] at this for home. Reports she was exposed to her friend who had COVID-19 last Sunday. Related Data Home Medications Medication Instructions Recorded Confirmed docusate sodium 100 mg tablet 200 mg PO BID 05/09/23 05/16/24 fluticasone propionate 50 2 spray intranasal DAILY 05/09/23 05/16/24 mcg/actuation nasal spray,suspension levothyroxine 50 mcg tablet 50 mcg PO DAILY 05/09/23 05/16/24 magnesium 200 mg tablet 250 mg PO BID 05/09/23 05/16/24 Allergies Allergy/AdvReac Type Severity Reaction Status Date / Time Penicillins Allergy Unknown Unknown Verified 05/26/24 15:50 adhesive tape AdvReac Mild Unknown Verified 05/26/24 15:50 Review of Systems Review of Systems: All systems reviewed & are unremarkable except as noted in HPI. All systems reviewed & are unremarkable except as noted in HPI and below PMFSH Past Medical History Medical History Breast cancer Diabetes Fatigue GERD (gastroesophageal reflux disease) Heart failure History of fatty infiltration of liver Hypertension Hypothyroidism Irritable bowel syndrome Left foot drop Left foot pain Mass of left foot Peptic ulcer disease Sciatica Venous stasis dermatitis Vitamin D deficiency Surgical History Surgical History H/O colonoscopy H/O mastectomy H/O: hysterectomy History of appendectomy History of back surgery History of colon resection Hx of cholecystectomy Family History Family History Father Family history of Alzheimer's disease Cerebrovascular accident Mother Family history of congestive heart failure Family history of chronic obstructive pulmonary disease Lung cancer Social History Social History Smoking status: Former smoker Tobacco type: cigarettes Second hand tobacco smoke exposure: Yes Alcohol intake: current Drinks per week: 1 Substance use: never Do You Feel Safe in your Home?: Yes Lack of Transportation: No Lack of Food: Never True Current Housing: I Have Housing Concerned About Future Housing: No Difficulty Paying Gas/Electric Bills: No Difficulty Paying for Meds: No Currently Unemployed: No Education: Decline to Answer Difficulty w/ Childcare or Family Care: No Living arrangements: with family Occupation/Education: retired Spiritual care concerns: No Agree to blood products: Yes Exam Narrative: GENERAL: Elderly, obese with BMI of 37.3, non-toxic, in no acute distress. HEAD: Normocephalic, atraumatic. RESPIRATORY: Airway patent, respirations nonlabored. Clear to auscultation bilaterally, no rales, rhonchi, wheezing. No significant focal lung sounds. CARDIOVASCULAR: Borderline tachycardic with regular rhythm without murmurs, rubs, or gallops. ABDOMINAL: Soft, mild tenderness in lower abdomen/suprapubic region, nondistended. Normoactive BS. MUSCULOSKELETAL: Moves all extremities. No gross deformities. Trace peripheral edema. SKIN: Warm, dry, normal color. NEURO: A&O X3. Speech clear. Cr
[2024-05-26 18:21] LABS: NT Pro B Type Natriuretic Pept 463 pg/mL (19.9-100); Troponin I < 0.012 ng/mL (0.000-0.034)
[2024-05-26 18:22] LABS: Add Urine Microscopic? YES; Appearance Urine Clear (Clear); Bacteria Urine None Seen /hpf; Bilirubin Urine Negative (Negative); Blood Urine Negative (Negative); Color Urine Yellow (Yellow); Glucose Urine UA Negative (Negative); Ketones Urine Trace mg/dL (Negative); Leukocyte Esterase Ur 1+ LEU/UL (Negative); Nitrate Urine Negative (Negative); Non Pathogenic Casts 0-2; Protein Urine Negative (Negative); RBC Urine 0-2 /hpf (0-2); Specific Grav Ur 1.018 (1.001-1.035); Squamous Epithelial Cell Urine Moderate /hpf (Few); Urobilinogen Urine 0.2 mg/dL (<2.0); pH Urine 5.5 (5.0-9.0)
[2024-05-26 18:42] LABS: Influenza A QL RT-PCR Negative (Negative); Influenza B QL RT-PCR Negative (Negative); RSV RNA, RT-PCR Negative (Negative); SARS-CoV-2 RNA PCR Positive (Negative)
[2024-05-26] MEDS: SODIUM CHLORIDE 0.9% IV 1,000 ML 999 ML IV CONT (18:57)
[2024-05-26] MEDS: CEPHALEXIN 500 MG CAPSULE PO (21:02)
== END 2024-05-26 21:37 | disposition home or self-care (01) ==
PROVIDERS: Emergency Provider Physician Assistant; PCP Nurse Practitioner Family
DX: N30.00 Acute cystitis without hematuria (principal); U07.1 COVID-19; Z85.3 Personal history of malignant neoplasm of breast; E11.9 Type 2 diabetes mellitus without complications; K21.9 Gastro-esophageal reflux disease without esophagitis; I11.0 Hypertensive heart disease with heart failure; I50.9 Heart failure, unspecified; E03.9 Hypothyroidism, unspecified; M21.372 Foot drop, left foot
CPT/HCPCS: 36415; 71046; 74177; 80053; 81001; 83605; 83690; 83880; 84484; 85025; 87086; 87637; 93005; 96360; 99284; A9270; J7030; Q9967

== ENCOUNTER 2024-07-24 13:15 | Outpatient (RCR) | payer MEDICARE, OTHER, SELFPAY ==
--- NOTE | 2024-05-14 17:21 | PTOPEVAL1 ---
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 Pain simulator on the back to monitor. Pt had difficulty getting up from the chair and walking. A few months ago, has been experiencing and dealing with increased pain to abdomen and back and feeling really sick and had black stool, was not treated right away; 4 LEEROY home, 8 wide steps with bilat rails to bathroom/bedroom. Reported Pain Level Pain Score 6,3: Self Report Assessment PT Clinical Summary Pt is an 83 yo female pt who presents to therapy with c/o increased bilat hip and LE pain and swelling, lowback pain, difficulty with walking. Pt demos significant ROM deficits, generalized weakness, decreased endurance, balance deficits with 9/28 score on Tinetti Assessment indicating a high fall risk, 34% on Modified Oswestry Scale indicating moderate disability and gait impairments showing compensated Trendelenburg sign with hip hiking pattern during ambulation with 2WW. She will benefit from skilled PT to address pain and ROM deficits, improve strength and balance, improve gait for community ambulation with least restrictive AD and to reduce risk for falls. Plan of Care Interventions Check Out for Orthotic/Pr,Electrical Stimulation, Gait Training,Hot Pack/Cold Pack,Manual Therapy, Neuro Re-education,Patient/Caregiver Education, Therapeutic Activities,Therapeutic Exercise, Ultrasound,Other Other Interventions IASTM,Taping PT Services Indicated Yes Treatment Frequency and 2x/wk x 20 visits Duration These treatments will address the objective and functional deficits as defined above. The patient will be advanced safely and appropriately in order for the patient to progress towards his/her prior level of function. Additional exercises will be introduced and as well as a comprehensive home exercise program upon discharge, if needed, ?to ensure carryover of functional gains achieved in the clinic. This treatment plan has been reviewed and agreement upon by the patient.
--- NOTE | 2024-05-14 17:21 | OPREHPOC ---
Outpatient Therapy Plan of Care This is a Multidisciplinary Plan of Care that may contain components documented by all disciplines (PT, OT, and ST.) PT Problem 1 PT Problem #1 Knowledge Deficit PT Goal 1 Goal / Goal Update Pt will demo HEPs for lumbar protection/ stabilization, postural exercises, BLE flexibility and strengthening indep. Target Visit 15 PT Problem 2 PT Problem #2 Pain PT Goal 1 Goal / Goal Update Pt will report 1-2/10 pain at worst when standing and walking for prolonged periods of time. Target Visit 20 PT Problem 3 PT Problem #3 Impaired Range of Motion PT Goal 1 Goal / Goal Update Pt will demo WNL of lumbar motions and BLE ROM. Target Visit 20 PT Problem 4 PT Problem #4 Impaired Functional Mobil PT Goal 1 Goal / Goal Update Pt will demo 10% or less of Modified Oswestry Back Questionnaire to 10% or less indicating minimal disability. Target Visit 20
--- NOTE | 2024-05-27 17:02 | PCPTNOTE ---
Pt called office to cancel appointment today due to testing positive for COVID.
--- NOTE | 2024-06-17 15:34 | PTOPPROG ---
Assessment and note entered by Marium Diaz, PT Re-Eval Information Assessment Status Progress Diagnosis M54.42, M54.41, G89.29 ICD-10 Condition Codes (PT) Pain in right hip M25.551,Pain in left hip M25.552 ,M25.561,Pain in left knee M25.562,Difficulty Walking R26.2,R26.9,Weakness R53.1 Other ICD-10 Condition Codes ( falls PT) Subjective Information Pt reports falling on her back against the wall last night, went straight down on her bottom, she scooted to the stairway going to the lower level and scooted down and sat on the steps, she was able to get up by pulling herself up the bilat banisters, turned around and able to step up further 3 more steps to the bedroom. Denies any sharp pains, only felt sore today and muscles feel tight. Assessment PT Clinical Summary Pt has received a total of 6 PT treatment sessions , however out of the 9 she has scheduled, she has cancelled times due to being sick with COVID. She started noticing gains after the first few sessions but had a major setback after she got sick. Last night she had a fall, although she was not hurt badly, she did experience intense soreness and tightness throughout her body. Her Tinetti Score is the same from eval upto today, also, we have not worked on balance previously. She will benefit from continued therapy interventions to improve balance, standing tolerance, strength and flexibility to improve functional mobility and reduce risk for falls. Plan of Care Interventions Check Out for Orthotic/Pr,Electrical Stimulation, Gait Training,Hot Pack/Cold Pack,Manual Therapy, Neuro Re-education,Patient/Caregiver Educati, Therapeutic Activities,Therapeutic Exercise, Ultrasound,Other Other Interventions IASTM, Taping PT Services Indicated Yes Treatment Frequency and 2x/wk x 10 visits Duration These treatments will address the objective and functional deficits as defined above. The patient will be advanced safely and appropriately in order for the patient to progress towards his/her prior level of function. Additional exercises will be introduced and as well as a comprehensive home exercise program upon discharge, if needed, ?to ensure carryover of functional gains achieved in the clinic. This treatment plan has been reviewed and agreement upon by the patient.
--- NOTE | 2024-08-01 16:21 | PTOPPROG ---
Assessment and note entered by Marium Diaz, PT Re-Evaluation Information Assessment Status Progress - Pt Not Present Diagnosis M54.42, M54.41, G89.29 ICD-10 Condition Codes (PT) Pain in right hip M25.551,Pain in left hip M25.552 ,Pain in right knee M25.561,Pain in left knee M25. 562,Difficulty Walking R26.2,Abnormalities of gait and mobility R26.9,Weakness R53.1 Other ICD-10 Condition Codes ( falls PT) Subjective Information Pt reports that she is doing her HEPs everyday, the stretches does help a lot. The manual stretches provided by therapist is the most helpful. Assessment PT Clinical Summary Pt demos good gains in therapy, noted improved ROM and strength. She has met the goals for knowledge and pain levels, however has partially met the ROM, functional mobility, strength and balance goal at this time. Pt requested to continue to work on balance due to fear of falling. She will benefit from continued skilled PT interventions including neuro re-ed, thera exercises, further gait training, fall prevention and recovery exercises to reduce risk for falls and improve general QOL. Plan of Care Interventions Electrical Stimulation,Gait Training,Manual Therapy,Neuro Re-education,Patient/Caregiver Education,Therapeutic Activities,Therapeutic Exercise,Ultrasound,Other Other Interventions IASTM, Taping PT Services Indicated Yes Treatment Frequency and 1-2x/wk x 6 visits Duration These treatments will address the objective and functional deficits as defined above. The patient will be advanced safely and appropriately in order for the patient to progress towards his/her prior level of function. Additional exercises will be introduced and as well as a comprehensive home exercise program upon discharge, if needed, ?to ensure carryover of functional gains achieved in the clinic. This treatment plan has been reviewed and agreement upon by the patient.
== END 2024-08-10 23:59 | disposition home or self-care (01) ==
LOC: ANHHIPT 13:15
PROVIDERS: PCP Nurse Practitioner Family; Visit Provider Nurse Practitioner Family
DX: M54.42 Lumbago with sciatica, left side (principal); M54.41 Lumbago with sciatica, right side; G89.29 Other chronic pain
CPT/HCPCS: 97014; 97035; 97110; 97112; 97140; 97161; 97530; 97750; G0283

== ENCOUNTER 2024-09-18 13:15 | Outpatient (RCR) | payer MEDICARE, OTHER, SELFPAY ==
--- NOTE | 2024-09-20 17:13 | PTOPDC ---
Assessment and note entered by Marium Diaz, PT Discharge Information Assessment Status Discharge Diagnosis M54.42, M54.41, G89.29 ICD-10 Condition Codes (PT) Pain in right hip M25.551,Pain in left hip M25.552 ,Pain in right knee M25.561,Pain in left knee M25. 562,Difficulty Walking R26.2,Abnormalities of gait and mobility R26.9,Weakness R53.1 Other ICD-10 Condition Codes ( falls PT) Subjective Information Pt reports she is doing better physically and current medical status has improved, she continue to see several doctors for other issues. States compliant with the exercises she learned in therapy and has been performing her stretches daily. Denies any recent fall or near fall incidents at home or in the community. Assessment PT Clinical Summary Pt demonstrated good progress with therapy and showed gains in strength and balance, has improved in the 5xSTS without BUE support and improved stability, very minimal postural sway. Noted improvement with gait mechanics and ambulation endurance. She continued to demo flexed trunk posture but has improved since the posture assumed at al. May occasionally require cues for postural correction, however, pt also has fused lumbar spine and has difficulty with maintaining extension for prolonged time. Pt is agreeable to performing HEPs indep and agreeable to DC today. Skilled PT program discontinued. Plan of Care PT Services Indicated No
== END 2024-09-24 14:44 | disposition home or self-care (01) ==
LOC: ANHHIPT 13:15
PROVIDERS: PCP Nurse Practitioner Family; Visit Provider Nurse Practitioner Family
DX: M54.42 Lumbago with sciatica, left side (principal); M54.41 Lumbago with sciatica, right side; G89.29 Other chronic pain
CPT/HCPCS: 97110; 97112; 97140; 97750

== ENCOUNTER 2025-04-10 12:30 | Outpatient (RCR) | payer MEDICARE, OTHER, SELFPAY ==
--- NOTE | 2025-01-21 16:20 | PTOPEVAL1 ---
Assessment and note entered by Rachel Butler, PT Evaluation Information Assessment Status Evaluation Diagnosis Plantar Fasciitis R/L (M72.2) ICD-10 Condition Codes (PT) Abnormalities of gait and mobility R26.9 Other ICD-10 Condition Codes ( M79.672 Pain in left foot, Pain in right foot M79. PT) 671 Subjective Information Pt reports has had plantar fasciitis for years Is very painful first few steps in the morning Pt has shoes from foot doctor with inserts from foot doctors Has swelling and cellulitis eric LEs, tenderness on the heel and along the back of the legs. Is on naproxen for her feet but has taken this for years Props feet up feels better on the feet but hurts the heel which is tender Reports has sciatica, swelling, cellulitis, and drop foot on LLE. Reported Pain Level Pain Score 5: Self Report Assessment PT Clinical Summary Pt presents with complaints of bilateral plantar fasciitis. She also has a history of multiple co- morbidities including swelling, cellulitis, sciatica, and left drop foot she reports makes it difficult for her to isolate and discern pain ratings related to this diagnosis singly. She reports she always has pain and is never a 0/10, states tenderness along her heel and up into the calves as well as tenderness along the front of her lower legs. She shows severely reduced gastroc and soleous flexibility passively and actively in testing today. 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 Pt will benefit from physical therapy to address pain, improve flexibility, and assist in returning to more functional level of activity. Plan of Care Interventions Hot Pack/Cold Pack,Manual Therapy,Neuro Re- education,Patient/Caregiver Education,Therapeutic Activities,Therapeutic Exercise,Self-Care/Home Management,Ultrasound PT Services Indicated Yes Treatment Frequency and 1-2x weekly x 10 visits Duration These treatments will address the objective and functional deficits as defined above. The patient will be advanced safely and appropriately in order for the patient to progress towards his/her prior level of function. Additional exercises will be introduced and as well as a comprehensive home exercise program upon discharge, if needed, ?to ensure carryover of functional gains achieved in the clinic. This treatment plan has been reviewed and agreement upon by the patient.
--- NOTE | 2025-01-21 16:21 | OPREHPOC ---
Outpatient Therapy Plan of Care This is a Multidisciplinary Plan of Care that may contain components documented by all disciplines (PT, OT, and ST.) PT Problem 1 PT Problem #1 Knowledge Deficit PT Goal 1 Goal / Goal Update Pt will be independent in HEP Pt will verbalize understanding of diagnosis and prognosis Target Visit 5 PT Problem 2 PT Problem #2 Pain PT Goal 1 Goal / Goal Update Pt will report lowest pain rating at 3/10 to show improvement in overall discomfort Target Visit 5 PT Goal 2 Goal / Goal Update Pt will report greatest pain level at 5/10 or less to improve ADLs and activities Target Visit 10 PT Problem 3 PT Problem #3 Impaired Flexibility PT Goal 1 Goal / Goal Update Pt will demonstrate gastroc and soleous flexibility to allow for 5 degrees passive dorsiflexion eric Target Visit 5 PT Goal 2 Goal / Goal Update Pt will demonstrate gastroc and soleous flexibility to allow for 10 degrees of passive dorsiflexion eric to offload plantar fascia Target Visit 10 PT Problem 4 PT Problem #4 Impaired Gait PT Goal 1 Goal / Goal Update Pt will demonstrate external rotation bilat of 15 degrees or less in gait to demonstrate improved gait kinematics related to ankle mobility. Target Visit 10
--- NOTE | 2025-02-09 13:28 | PCPTNOTE ---
When patient did not arrive for appt, clerical called to check on patient status. Pt rescheduled for later in the week after her appt time had started.
--- NOTE | 2025-02-23 12:41 | PCPTNOTE ---
Pt called and cancelled 30 minutes prior to appt stating she is hurting too bad to come into therapy.
--- NOTE | 2025-03-05 11:07 | OPREHPOC ---
Outpatient Therapy Plan of Care This is a Multidisciplinary Plan of Care that may contain components documented by all disciplines (PT, OT, and ST.) PT Problem 1 PT Problem #1 Knowledge Deficit PT Goal 1 Goal / Goal Update Pt will be independent in HEP Pt will verbalize understanding of diagnosis and prognosis Target Visit 5 Progress Met PT Problem 2 PT Problem #2 Pain PT Goal 1 Goal / Goal Update Pt will report lowest pain rating at 3/10 to show improvement in overall discomfort Target Visit 5 Progress Met PT Goal 2 Goal / Goal Update Pt will report greatest pain level at 5/10 or less to improve ADLs and activities - progressed to 6/ 10 from 8/10 Target Visit 20 Progress Partially Met PT Problem 3 PT Problem #3 Impaired Flexibility PT Goal 1 Goal / Goal Update Pt will demonstrate gastroc and soleous flexibility to allow for 5 degrees passive dorsiflexion eric Target Visit 5 PT Goal 2 Goal / Goal Update Pt will demonstrate gastroc and soleous flexibility to allow for 10 degrees of passive dorsiflexion eric to offload plantar fascia Target Visit 20 PT Problem 4 PT Problem #4 Impaired Gait PT Goal 1 Goal / Goal Update Pt will demonstrate external rotation bilat of 15 degrees or less in gait to demonstrate improved gait kinematics related to ankle mobility. Target Visit 20
--- NOTE | 2025-03-05 11:07 | PTOPPROG ---
Assessment and note entered by Rachel Butler, PT Evaluation Information Assessment Status Progress Diagnosis Plantar Fasciitis R/L (M72.2) ICD-10 Condition Codes (PT) Abnormalities of gait and mobility R26.9 Other ICD-10 Condition Codes ( M79.672 Pain in left foot, Pain in right foot M79. PT) 671 Subjective Information Pt reports got her toes done yesterday and also is having a cellulitis flare up on LLE. Was provided anti-biotics and a wrap and return in a week. Was provided a foot brace resting night splint for LLE. Will also take soles in and be provided different sole inserts. Pt reports she will be getting shots for plantar fasciitis Massage with therapy would give her about an hour of relief Reports doesn't have as much discomfort in the calf of the RLE in the last two weeks Her stretches with the towel that feel good Assessment PT Clinical Summary Pt has attended therapy consistently for her plantar fasciitis. Pt has multiple co-morbidities including cellulitis LLE, sciatica, and neuropathy . She reports deep tissue work has helped her right calf especially but recently had a LLE flare up that is requiring wrapping and anti-biotics. She reports she has not been wearing her orthotic inserts due to irritation but her DPM recently discharged those, and provided a resting night splint. she reports she will also be receiving shots for her plantar fasciitis. Her reported pain numbers have decreased overall, and her perceived disability outcome measures also decreased from perceived 100% disability to 75% percent. Pt also shows increased ROM in her ankles and increased gastroc and soleous flexibility though these values are still far from average. Pending MD approval, pt could benefit from continued therapy to address flexibility and ROM, ankle strength and positioning, and pain to improve patient functional independence. Plan of Care Interventions Gait Training,Hot Pack/Cold Pack,Manual Therapy, Neuro Re-education,Patient/Caregiver Education, Therapeutic Activities,Therapeutic Exercise,Self- Care/Home Management,Ultrasound PT Services Indicated Yes Treatment Frequency and 1-2x weekly x 10 visits Duration These treatments will address the objective and functional deficits as defined above. The patient will be advanced safely and appropriately in order for the patient to progress towards his/her prior level of function. Additional exercises will be introduced and as well as a comprehensive home exercise program upon discharge, if needed, ?to ensure carryover of functional gains achieved in the clinic. This treatment plan has been reviewed and agreement upon by the patient.
--- NOTE | 2025-03-17 15:26 | PCPTNOTE ---
Pt no showed to her physical therapy appointment on 03/16.
--- NOTE | 2025-03-20 13:07 | PCPTNOTE ---
Pt called the motel front desk attendant to cancel her physical therapy appointment today due to having bladder and feet issues. Pt is following up with her PCP.
--- NOTE | 2025-04-01 13:12 | PCPTNOTE ---
Patient called & cancelled scheduled appointment this date due to losing track of time.
--- NOTE | 2025-04-10 16:39 | PTOPDC ---
Assessment and note entered by Rachel Butler, PT Evaluation Information Assessment Status Progress Diagnosis Plantar Fasciitis R/L (M72.2) ICD-10 Condition Codes (PT) Abnormalities of gait and mobility R26.9 Other ICD-10 Condition Codes ( M79.672 Pain in left foot, Pain in right foot M79. PT) 671 Subjective Information Had two rounds of antibiotics for her left LE cellulitis flare up. Reports had a rough month Pt reports plantar fasciitis is doing much better. States has been getting neuropathy treatments and notices doesn't have the pins and needles like she did. So with the exercises for neuropathy and plantar fasciitis has helped overall. Had heat exhaustion three times in two weeks. Couldn't walk or or get out of bed and her couldn't help. Daughter three days a week to help . Decided today to go back to pain management. Was able to get her orthotics trimmed so are more comfortable. Back is about a 5-6/10 today doesn't really feel her feet. Reported Pain Level Pain Score 2: Self Report Assessment PT Clinical Summary Increased time required for discharge note testing and subjective collection due to patient focus on other aspects of her health and life at the moment. Pt did report improved ability to ambulate and decreased pain overall with highest plantar fascia pain rating at 4/10. Her plantar fascia related goals have been met and patient encouraged to continue her endeavors to continue her functional mobility and changing lifestyle to meet her goals for reduced pain. Plan of Care PT Services Indicated No
== END 2025-04-17 11:22 | disposition home or self-care (01) ==
LOC: ANHHIPT 12:30
PROVIDERS: PCP Nurse Practitioner Family
DX: M72.2 Plantar fascial fibromatosis (principal)
CPT/HCPCS: 97110; 97140; 97162; 97750

== ENCOUNTER 2025-04-28 11:56 | Emergency (ER) | payer MEDICARE, OTHER, SELFPAY ==
--- OUTSIDE RECORDS SUMMARY | 2007-04-04 07:53 | XMS_ITS | Continuity of Care Document ---
Author Organization [facility] [place] Address [address] [place] [address] Phone Care Team Providers Care Office Support Assistant Name Role Phone Juanito Trevino Unavailable Unavailable Procedures Procedure Date Post-op Follow-up Visit Ophthalmoscopy, Subsequent Post-op Follow-up Visit Ophthalmoscopy, Subsequent Office Consultation Ophthalmoscopy Treatment Of Retina Advance Directives Directive Yes / No Effective Date File Name No Information Encounters Encounter Description Practice Location Reason(s) For Visit Diagnoses Date Provider Providers Copied on Encounter [facility], [address] [place] [address] [address], [place], [place], [id number], tel:[phone] [facility] No Information Mar-3 0-200 7 Uriel Solomon. [address] [place], [place], [facility], . tel:[phone] [facility], [address], [place], [place], [id number], [place] tel:[phone] [facility] No Information Mar-2 0-200 7 Uriel Solomon. [address] [place], [address], [place]. tel:[phone] Office Consultation [facility], [address], [place], [place], [id number], [place] tel:[phone] [facility] No Information Aug-1 6-200 7 Uriel Solomon. [address] [place], [address], . tel:[phone] Referring Provider: Jesus Dumont OD W, [address] [place], [address]. tel:[phone] Family History Family Member Type Diagnosis Age At Onset No Information Payers Payer name Insurance type Covered alliance party ID Authoriza tion(s) Medicare RR MB [id number] Social History Type Description Quantity Date Captured Comments Sex Female Smoking Status No Information Chief Complaint And Reason For Visit No Information Reason For Referral Reason For Referral No Information History Of Present Illness Encounter Date Complaint History Of Prese nt Illness No Information Functional Status Date Functional Assessmen t No Information Instructions Date Instruction Additional Infor mation No Information Assessments Type Assessment Date No Information Patient Care Teams Name Effective Dates (start - stop) Status Members No Information
--- OUTSIDE RECORDS SUMMARY | 2007-04-04 07:53 | XMS_ITS | Continuity of Care Document ---
Author Organization [facility] Address [address] [place] [address] Phone Care Team Providers Care Raw Stock Machine Loader Name Role Phone Juanito Trevino Unavailable Unavailable Procedures Procedure Date Post-op Follow-up Visit Ophthalmoscopy, Subsequent Post-op Follow-up Visit Ophthalmoscopy, Subsequent Office Consultation Ophthalmoscopy Treatment Of Retina Advance Directives Directive Yes / No Effective Date File Name No Information Encounters Encounter Description Practice Location Reason(s) For Visit Diagnoses Date Provider Providers Copied on Encounter [facility], [address] [place] [address] [address], [place], [place], [id number], tel:[phone] [facility] No Information Mar-3 0-200 7 Uriel Solomon. [address] [place], [place], [facility], . tel:[phone] [facility], [address], [place], [place], [id number], [place] tel:[phone] [facility] No Information Mar-2 0-200 7 Uriel Solomon. [address] [place], [address], [place]. tel:[phone] Office Consultation [facility], [address], [place], [place], [id number], [place] tel:[phone] [facility] No Information Aug-1 6-200 7 Uriel Solomon. [address] [place], [address], . tel:[phone] Referring Provider: Jesus Dumont OD W, [address] [place], [address]. tel:[phone] Family History Family Member Type Diagnosis Age At Onset No Information Payers Payer name Insurance type Covered democrat ID Authoriza tion(s) Medicare RR MB [id number] Social History Type Description Quantity Date Captured [...]
--- NOTE | ~2025-04-28 | XR_ITS ---
Examination: XR chest 2V Clinical History: cp Comparison: 05/26/2024 Technique: PA and Lateral Findings: Spinal stimulator. Heart size mildly enlarged. Left basilar appearance due to elevated hemidiaphragm, atelectasis, and epicardial fat. Lungs otherwise clear. No acute bony abnormality. IMPRESSION: 1. No acute cardiopulmonary findings. Reviewed, dictated and finalized at location R.
--- NOTE | ~2025-04-28 | CT_ITS ---
EXAMINATION: CT brain wo con DATE: 04/28/2025 14:53 INDICATION: Headache TECHNIQUE: Computed tomography (CT) of the head was performed without intravenous contrast. The dose-length product was 605.33 mGy-cm. Automated exposure control and iterative reconstruction technique were employed. COMPARISON: None FINDINGS: Mild generalized atrophy. There are scattered mild periventricular and subcortical white matter changes, most likely related to small vessel ischemic disease (microangiopathy). No acute intracranial hemorrhage, infarction, mass or mass effect. There is intracranial atherosclerosis. Paranasal sinuses and mastoids are pneumatized. No depressed skull fractures. IMPRESSION: 1. No acute intracranial abnormality. Reviewed, dictated and finalized at location O.
--- NOTE | 2025-04-28 12:01 | ECG_ITS ---
Test Date: 2025-04-28 12:09:50 Measurements Intervals [place] Rate: 55 P: 100 CA: 239 QRS: -24 QRSD: 96 T: 58 QT: 401 QTc: 385 Interpretive Statements SINUS BRADYCARDIA WITH FIRST DEGREE AV BLOCK BORDERLINE LEFT AXIS DEVIATION [QRS AXIS < -20] INCOMPLETE RIGHT BUNDLE BRANCH BLOCK [90+ ms QRS DURATION, TERMINAL R IN V1/V2, 40+ ms S IN I/aVL/V4/V5/V6] MODERATE VOLTAGE CRITERIA FOR LVH, CONSIDER NORMAL VARIANT [MEETS CRITERIA IN ONE OF: R(aVL), S(V1), R(V5), R(V5/V6)+S(V1)] BORDERLINE ECG Compared to ECG 05/26/2024 17:42:52 HEART RATE FROM REDUCED, NO OTHER SIGNIFICANT CHANGE Electronically Signed On 04-28-2025 12:41:00 CDT by Virgilio Reynoso M.D.
[2025-04-28 12:02] VITALS: BP 157/62; PULSE 60; RESP 16; TEMP 36.4; O2SAT 99
[2025-04-28 12:24] LABS: Hematocrit 42.7 % (37.0-47.0); Hemoglobin 13.3 g/dL (12.0-15.0); Immature Granulocyte Percent A 0.3 % (0-0.5); Lymphocytes Absolute Auto 1.58 K/mm3 (0.9-3.2); Mean Corpuscular HGB Conc 31.1 g/dl (32-36); Mean Corpuscular Hemoglobin 29.6 pg (26-34); Mean Corpuscular Volume 95.1 fl (80-100); Nucleated Red Blood Cells Absolute Auto 0.000 K/mm3 (0.0-0.012); Nucleated Red Blood Cells Perc 0.0 % (0.0-0.2); Platelet Count Result 176 k/mm3 (150-375); Red Blood Count 4.49 M/mm3 (4.2-5.4); White Blood Count 7.7 K/mm3 (4.5-10.0)
--- OUTSIDE RECORDS SUMMARY | 2025-04-28 12:27 | XMS_ITS | Clinical Summary ---
Author Organization [place] [id number] Address [address] [place] [address] Care Team Providers Care Computer Operations Analyst Name Role Phone Maryann Chan Unavailable [phone] Salyl Bray MD Primary Care Provider [phone] Allergies Active Allergy Reactions Criticality Noted Date Comments Adhesive Tape-Silicones Penicillins Medications duiiswct-dlr-VX -lycopen-lutein 500-300-250 mcg tablet Take by mouth daily Active magnesium oxide (MAG-OX) 415 mg (250 mg elemental) tablet Take 250 mg by mouth daily Active baclofen (LIORESAL) 10 mg tablet Take 1 tablet (10 mg total) by mouth 2 (two) times a day prn Active naltrexone (DEPADE) 50 mg tablet Take 1 tablet (50 mg total) by mouth daily Active acetaminophen-c odeine (TYLENOL with CODEINE #3) 300-30 mg per tablet Take 1 tablet by mouth every 4 (four) hours as needed for pain Active zolpidem (AMBIEN) 10 mg tabletIndicatio ns:Sleep-Onset Insomnia Take 1 tablet (10 mg total) by mouth nightly as needed for sleep Active triamterene-hyd roCHLOROthiazid e 37.5-25 mg per tablet/capsule Take 1 tablet/capsu le by mouth daily Active cholecalciferol (VITAMIN D-3) 5,000 unit tablet 1 tablet (5,000 Units total) daily Active gabapentin (NEURONTIN) 100 mg capsule Take 1 capsule (100 mg total) by mouth 3 (three) times a day Active oxyBUTYnin (DITROPAN) 5 mg tablet Take 1 tablet (5 mg total) by mouth 3 (three) times a day Active Active Problems Problem Noted Date Diagnosed Date Back pain with radiation 05/17/2015 Surgical History Surgery Date Site/Laterality Comments BREAST BIOPSY 10/26/2015 Right Social History Tobacco Use Types Packs/Day Years Used Date Smoking Tobacco: Never Tobacco Cessation:Counseling Given: Not Answered Personal Safety Answer Date Recorded Getting School Help Needed Not on file 08/09 Comments Unknown Sex and Gender Information Value Date Recorded Sex Assigned at Not on file Legal Sex Female 1:09 AM 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 PROGRAM INTERN Gender Identity Not on file Sexual Orientation Not on file Obstetrics History Last Filed Vital Signs Vital Sign Reading Time Taken Comments Blood Pressure 150/61 03/12/2023 8:53 AM CDT Pulse 101 03/12/2023 8:53 AM CDT Temperature 36.6 C (97.9 F) 10/04/2023 2:12 PM [employer]EARCH [employer]GRAM INTERN Respiratory Rate 18 03/12/2023 8:53 AM CDT Oxygen Saturation - - Inhaled Oxygen Concentration - - Weight 112 kg (247 lb) 10/04/2023 2:12 PM [employer]EARCH PROGRAM INTERN Height 167.6 cm (5' 6) 03/12/2023 8:53 AM CDT Body Mass Index 39.87 03/12/2023 8:53 AM CDT Plan of Treatment Health Maintenance Due Date Last Done Comments Depression Screening 1940 Fall Risk Assessment 1940 Osteoporosis Screening-Bone Density Scan 1940 Hepatitis B Screening 1958 Well Visit 65+ 2005 Zoster Vaccine (2 of 2) 08/09/2023 06/14/2023 Covid-19 Vaccine (5 - 2024-2 6 season) 2025 03/23/2022, 05/31/2021, 11/09/2020, Additional history exists Influenza Vaccine (#1) 2025 , 07/02/2018, 06/02/2015, Additional history exists DTaP/Tdap/Td Vaccine (2 - Td or Tdap) 07/13/2025 07/13/2015 Pneumococcal vaccine 65+ Completed 03/29/2020, 06/07 Insurance [facility] MEDICARE RAILROAD MEDICARE RAILROAD [facility] Care Teams Computer Operations Analyst Relationship Specialty Start Date End Date Sally Bray MD [address] [place] [address] PCP - General Pediatric Neurology 07/12/23 Maryann Chan PA [address] [place] [address] Physician Crystal Machining Coordinator 01/30/23
--- OUTSIDE RECORDS SUMMARY | 2025-04-28 12:27 | XMS_ITS | Clinical Summary ---
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 Activ e Hydrocodone-Acet aminophen 5-500 MG CapsuleIndicatio ns:Bilateral malignant neoplasm of overlapping sites of breast in female 1 tablet 4 TIMES DAILY NEEDED. 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 Active Menthol, Topical Analgesic, 4 % GelIndications:B ilateral malignant neoplasm of overlapping sites of breast in female by Apply externally route. 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 Gender Identity Not on file Sexual Orientation Not on file Last Filed Vital Signs Vital Sign Reading Time Taken Comments Blood Pressure 142/78 01/20/2016 11:25 AM CDT Pulse 70 01/20/2016 11:25 AM CDT Temperature 37.2 C (98.9 F) 01/20/2016 11:25 AM CDT Respiratory Rate - - Oxygen Saturation 98% 01/20/2016 11:25 AM CDT Inhaled Oxygen Concentration - - Weight 112.9 kg (249 lb) 01/20/2016 11:25 AM CDT Height 167.6 cm (5' 6) 01/20/2016 11:25 AM CDT Body Mass Index 40.19 01/20/2016 11:25 AM CDT Plan of Treatment Health Maintenance Due Date Last Done Comments Hepatitis C Virus (HCV) Screening 1940 Mammogram 1950 Zoster Immunization (1 of 2) 1959 Respiratory Syncytial Virus (RSV) Immunization (Adult) (1 - 1-dose 75+ series) 2015 Influenza Immunization (#1) 2025 07/02/2018 SARS-COV-2 Immunization ( season) 2025 05/31/2021, 11/09/2020, 10/12/2020 DTaP/Tdap/Td Immunization Discontinued 07/13/2015 TdaP Immunization Completed 07/13/2015 DEXA Bone Density Discontinued 02/09/2016 Pneumococcal Immunization (5 0+ years) Completed 03/29/2020, 07/02/2018 Pneumococcal Immunization Combined Discontinued 03/29/2020, 07/02/2018 Hepatitis B Immunization Aged Out No longer eligible based on patient's age to complete this topic Human Papillomavirus (HPV) Immunization Aged Out No longer eligible based on patient's age to complete this topic Meningococcal Immunization (ACWY) Aged Out No longer eligible based on patient's age to complete this topic Rotavirus Immunization Aged Out No lo nger eligible based on patient's age to complete this topic Insurance MEDICARE RASubmittable [facility] Care Teams Metal Machinist Relationship Specialty [place] [address] [place] [id number] PCP - General General Surgery 10/05/15 [place] [address] [place] [address] General Surgery 10/05/15
--- OUTSIDE RECORDS SUMMARY | 2025-04-28 12:27 | XMS_ITS | Patient Health Record ---
Author Organization 1 OF Sebas d[facility] Address [address] [place] [address] Care Team Providers Care Print Line Feeder Name Role Phone Carmelina Chery Primary Care Provider Dagoberto Blanton Unavailable Jesus Gasca Unavailable [phone] Allergies Allergen (clinical drug ingredient) Drug/Non Drug Allergy documented on EMR Reaction Allergy Type Onset Date Status Adhesive Unknown Allergy Active Penicillin Unknown Drug Allergy Active Reason For Referral No Information Medications Medication SIG (Take, Route, Frequency, Duration) Notes Start Date End Date Status Clindamycin HCl 300 MG Capsule 1 capsule Orally every 6 hrs; Duration: 7 days 03/03/2025 Active Naproxen Not-Taking /PRN Meloxicam 15 MG Tablet 1 tablet Orally o nce a day; Duration: 30 days 12/23/2024 Active Ambien Active Lisinopril Active Gabapentin Active Qutenza (4 Patch) 8 % Kit as directed Externally once every 3 months; Duration: 90 days Not-Taking/PRN Problems Problem Type SNOMED Code ICD Code Onset Dates Problem Status W/U Status Risk Notes Problem 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) Active confirmed Problem Pronation deformity of right foot (M21.6X1) Active confirmed Problem Diabetic peripheral neuropathy associated with type 2 diabetes mellitus (0690473071329) Painful diabetic neuropathy (E11.40) Active confirmed Problem Plantar fascial fibromatosis (67477405) Plantar fasciitis, bilateral (M72.2) Active confirmed Problem Polyneuropathy due to type 2 diabetes mellitus (704551959) Type 2 diabetes mellitus with peripheral neuropathy (E11.42) Active confirmed Problem Polyneuropathy due to type 2 diabetes mellitus (659354047) Type 2 diabetes mellitus with diabetic polyneuropathy, unspecified whether usp insulin use (E11.42) Active confirmed Problem Neuropathic pain (finding) (351344804) Neuropathic pain of both feet (G57.93) Active confirmed Problem Type 2 diabetes mellitus with peripheral angiopathy (495537975) Type 2 diabetes mellitus with diabetic peripheral angiopathy without gangrene, unspecified whether usp insulin use (E11.51) Active confirmed Problem Secondary lymphedema (74523463) Secondary lymphedema (I89.0) Active confirmed Vital Signs Height 66 in 03/09/2025 Weight 240 lbs 03/09/2025 BMI 38.73 kg/m2 03/09/2025 Encounters Encounter Location Date Provider Diagnosis 1 OF [facility] [address] [address] 08/19/2024 Jesus Elo Painful diabetic neuropathy E11.40 ; Onychogryphosis L60.2 ; Callus of foot L84 ; Type 2 diabetes mellitus with diabetic polyneuropathy, unspecified whether usp insulin use E11.42 and Type 2 diabetes mellitus with diabetic peripheral angiopathy without gangrene, unspecified whether usp insulin use E11.51 1 OF [address] [place] [place] [address] [address] 09/11/2024 Jesus Gasca Type 2 diabetes mellitus with diabetic polyneuropathy, unspecified whether termite technician insulin use E11.42 1 OF [address] [address] [place] [place] [address] [address] 09/23/2024 Jesus Johnsay Type 2 diabetes mellitus with peripheral neuropathy E11.42 and Neuropathic pain of both feet G57.93 1 OF [facility] [address] [place] [place] [address] [address] 09/23/2024 Jesus Elo Type 2 diabetes mellitus with peripheral neuropathy E11.42 and Callus of foot L84 1 OF [place] [place] [address] [address] 10/21/2024 Jesus Gasca Painful diabetic neuropathy E11.40 ; Onychogryphosis L60.2 ; Callus of foot L84 ; Type 2 diabetes mellitus with diabetic polyneuropathy, unspecified whether usp insulin use E11.42 and Type 2 diabetes mellitus with diabetic peripheral angiopathy without gangrene, unspecified whether usp insulin use E11.51 1 OF [facility] [address] [place] [address] 12/23/2024 Jesus Gasca Painful diabetic neuropathy E11.40 ; Onychogryphosis L60.2 ; Callus of foot L84 ; Type 2 diabetes mellitus with diabetic polyneuropathy, unspecified whether usp insulin use E11.42 ; Type 2 diabetes mellitus with diabetic peripheral angiopathy without gangrene, unspecified whether termite technician insulin use E11.51 ; Plantar fasciitis, bilateral M72.2 ; Pain in right foot M79.671 and Pain in left foot M79.672 1 OF [facility] [address] [place] [address] 12/30/2024 Jesus Gasca Type 2 diabetes mellitus with peripheral neuropathy E11.42 and Neuropathic pain of both feet G57.93 1 OF [facility] [address] [place] [address] 03/03/2025 Dagoberto Engle Callus of foot L84 ; Type 2 diabetes mellitus with diabetic polyneuropathy, unspecified whether usp insulin use E11.42 ; Onychogryphosis L60.2 ; Plantar fasciitis, bilateral M72.2 ; Pain in right foot M79.671 ; Pain in left foot M79.672 ; Cellulitis of left lower extremity L03.116 ; Neuropathic pain of both feet G57.93 ; Pronation deformity of left foot M21.6X2 ; Pronation deformity of right foot M21.6X1 ; Left foot drop M21.372 and Secondary lymphedema I89.0 1 OF [facility] [address] [place] [address] 03/09/2025 Dagoberto Engle Secondary lymphedema I89.0 ; Type 2 diabetes mellitus with diabetic polyneuropathy, unspecified whether usp insulin use E11.42 ; Cellulitis of left lower extremity L03.116 ; Pronation deformity of left foot M21.6X2 and Pronation deformity of right foot M21.6X1 1 OF [facility] [address] [place] [address] 04/02/2025 Dagoberto Engle Type 2 diabetes mellitus with peripheral neuropathy E11.42 and Neuropathic pain of both feet G57.93 1 OF [facility] [address] [place] [address] 08/19/2024 Jesus Gasca [facility] [address] [place] [address] 08/19/2024 Jesus Gasca 1 OF [facility] [address] [place] [address] 01/06/2025 Jesus Gasca 1 OF [facility] [address] [place] [address] 03/09/2025 Dagoberto Engle Assessments Encounter Date Diagnosis (ICD Code) Assessment Notes Treatment Notes Treatment Clinical Notes Section Notes 08/19/2024 Onychogryphosis (ICD-10 - L60.2) 08/19/2024 Painful diabetic neuropathy (ICD-10 - E11.40) Pt interested in Qutenza. We will check on coverage and call her 09/11/2024 Type 2 diabetes mellitus with diabetic polyneuropathy, unspecified whether usp insulin use (ICD-10 - E11.42) 09/23/2024 Type 2 diabetes mellitus with peripheral neuropathy (ICD-10 - E11.42) Dicussed Qutenza procedure and potential side effects. Pt would like to proceed the procedure. 09/23/2024 Type 2 diabetes mellitus with peripheral neuropathy (ICD-10 - E11.42) 10/21/2024 Painful diabetic neuropathy (ICD-10 - E11.40) 12/23/2024 Onychogryphosis (ICD-10 - L60.2) 12/23/2024 Painful diabetic neuropathy (ICD-10 - E11.40) 12/30/2024 Type 2 diabetes mellitus with peripheral neuropathy (ICD-10 - E11.42) Dicussed Qutenza procedure and potential side effects. Pt would like to proceed the procedure. 12/30/2024 Neuropathic pain of both feet (ICD-10 - G57.93) 03/03/2025 Callus of foot (ICD-10 - L84) 03/03/2025 Type 2 diabetes mellitus with diabetic polyneuropathy, unspecified whether usp insulin use (ICD-10 - E11.42) Considering the associated comorbidities and physical exam findings today, this patient is at substantial risk of developing serious foot complications in the absence of regular and professional palliative foot care. 03/09/2025 Secondary lymphedema (ICD-10 - I89.0) Patient presents with lymphedema, pain, and limb heaviness. They have utilized a PCD, compression, exercise and elevation for greater than four weeks, yet their significant symptoms persist. I recommend the Dayspring NPCD by [facility] to enable them to ambulate and help them more effectively manage their significant symptoms. 04/02/2025 Type 2 diabetes mellitus with peripheral neuropathy (ICD-10 - E11.42) Dicussed Qutenza procedure and potential side effects. Pt would like to proceed the procedure. 04/02/2025 Neuropathic pain of both feet (ICD-10 - G57.93) 12/23/2024 Callus of foot (ICD-10 - L84) 03/09/2025 Type 2 diabetes mellitus with diabetic polyneuropathy, unspecified whether usp insulin use (ICD-10 - E11.42) 03/03/2025 Onychogryphosis (ICD-10 - L60.2) 10/21/2024 Onychogryphosis (ICD-10 - L60.2) 09/23/2024 Neuropathic pain of both feet (ICD-10 - G57.93) 09/23/2024 Callus of foot (ICD-10 - L84) 08/19/2024 Callus of foot (ICD-10 - L84) 08/19/2024 Type 2 diabetes mellitus with diabetic polyneuropathy, unspecified whether usp insulin use (ICD-10 - E11.42) Patient visit today included a review of medical history, review of systems, physical exam and discussion of exam findings, diagnostic test results, and discussion of diagnoses and treatment options. Diabetic foot education was discussed including the nature of increased risk of developing foot problems due to the damage nerves and vessels of the feet caused by diabetes. The importance of daily self foot exams was stressed. Additionally, the patient was encouraged to control the blood sugar as well as possible and I explained the direct correlation between the incidence of diabetic foot complications and how well the blood sugar is controlled. I encouraged the patient to walk for exercise to help improve circulation to the feet as well as to help control excess blood sugar which I explained may also help to reduce or slow the progression of neuropathy symptoms. Additionally I recommended daily application of lotion to the feet to keep skin well hydrated. Advised to avoid walking w/o shoes on and discussed the importance of wearing properly fitted and supportive shoes and how wearing a shoe that does not fit properly can lead to blisters, open sores, infections and amputation. Literature regarding diabetic foot care was dispensed 10/21/2024 Callus of foot (ICD-10 - L84) 12/23/2024 Type 2 diabetes mellitus with diabetic polyneuropathy, unspecified whether termite technician insulin use (ICD-10 - E11.42) 03/03/2025 Plantar fasciitis, bilateral (ICD-10 - M72.2) 03/09/2025 Cellulitis of left lower extremity (ICD-10 - L03.116) 03/09/2025 Pronation deformity of left foot (ICD-10 - M21.6X2) 12/23/2024 Type 2 diabetes mellitus with diabetic peripheral angiopathy without gangrene, unspecified whether termite technician insulin use (ICD-10 - E11.51) Considering the associated comorbidities and physical exam findings today, this patient is at substantial risk of developing serious foot complications in the absence of regular and professional palliative foot care. 03/03/2025 Pain in right foot (ICD-10 - M79.671) 10/21/2024 Type 2 diabetes mellitus with diabetic polyneuropathy, unspecified whether usp insulin use (ICD-10 - E11.42) 08/19/2024 Type 2 diabetes mellitus with diabetic peripheral angiopathy without gangrene, unspecified whether termite technician insulin use (ICD-10 - E11.51) Considering the associated comorbidities and physical exam findings today, this patient is at substantial risk of developing serious foot complications in the absence of regular and professional palliative foot care. 10/21/2024 Type 2 diabetes mellitus with diabetic peripheral angiopathy without gangrene, unspecified whether usp insulin use (ICD-10 - E11.51) Considering the associated comorbidities and physical exam findings today, this patient is at substantial risk of developing serious foot complications in the absence of regular and professional palliative foot care. 12/23/2024 Plantar fasciitis, bilateral (ICD-10 - M72.2) Patient visit today included a review of medical history, review of systems, physical exam and discussion of exam findings, test results, and discussed the nature and etiology of plantar fasciitis as well as treatment options. I discussed the importance of wearing good supportive shoes and avoiding ambulation in slippers, flip flops or walking barefoot and I encouraged the patient to wear a good quality athletic sneaker whenever possible. Recommended local [employer] shoe store or a reputable [employer] store in the area for new shoes JOE. Discussed treatment options today including Rx and topical NSAIDs, prefab orthotics, custom orthotics, steroid injections, physical therapy, use of a night splint, immobilization and surgery as a last resort if conservative options fail to provide relief. Dispensed literature regarding plantar fasciitis. 03/03/2025 Pain in left foot (ICD-10 - M79.672) 03/09/2025 Pronation deformity of right foot (ICD-10 - M21.6X1) 03/03/2025 Cellulitis of left lower extremity (ICD-10 - L03.116) 12/23/2024 Pain in right foot (ICD-10 - M79.671) 12/23/2024 Pain in left foot (ICD-10 - M79.672) 03/03/2025 Neuropathic pain of both feet (ICD-10 - G57.93) 03/03/2025 Pronation deformity of left foot (ICD-10 - M21.6X2) 03/03/2025 Pronation deformity of right foot (ICD-10 - M21.6X1) 03/03/2025 Left foot drop (ICD-10 - M21.372) Consider drop foot AFO once cellulitis has resolved. 03/03/2025 Secondary lymphedema (ICD-10 - I89.0) 03/03/2025 Other - Bilateral plantar fasciitis. - Left leg lymphedema/chroni c swelling. - Suspected left leg cellulitis. - Left foot drop. PLAN: - Prescribed clindamycin 300 mg every six hours for seven days for suspected cellulitis. Pharmacy: [facility] in [place]. - Discussed steroid injection for plantar fasciitis but will defer until cellulitis resolves. For now I recommended and dispensed a night splint for the LT foot. Advised patient she can also wear it on the RT foot as she oswaldo beneficial. - Advised to bring in diabetic shoe inserts at the next visit for evaluation, as the current ones have curled at the heel causing pain. - Counseled that cushion is less important than support in footwear. Advised against adding extra cushioning to diabetic shoes. - Discussed using Epsom salt soaks for comfort but noted they are not curative. Advised that topical pain creams are unlikely to help with the described heel and foot pain. - Follow-up in one week to reassess cellulitis and LT plantar fasciitis Considering the associated comorbidities and physical exam findings today, this patient is at substantial risk of developing serious foot complications in the absence of regular and professional palliative foot care. 03/09/2025 Other - Discussed a newer, portable compression pump (Dayspring) as a more effective option for managing swelling. Provided a pamphlet. Will assist with insurance approval if she chooses to proceed. - Counseled on the importance of managing swelling to prevent recurrent cellulitis. - Encouraged better compliance with using compression pumps and elevating the legs to reduce swelling until Dayspring device is approved - - Diabetic inserts were modified in-office by shaving down the heel area to relieve pressure. The modified insert has a thicker, more supportive bottom material. Patient reports the modified insert feels more supportive, and she can now feel the arch support. - Provided education on the Dayspring compression pump system. - Discussed the benefits of a lymphedema clinic for massage to manually reduce fluid, which is different from her previous therapy experience. - Follow-up as scheduled for regular foot care/neuropathy treatment on the . Advised to call if redness worsens. Plan Of Treatment Next Appt Details Provider Name:Dagoberto Engle, 05/12/2025 02:40:00 PM, [address], [place], [address], Provider Name:Dagoberto Engle, 07/06/2025 01:00:00 PM, [address], [place], [address], Insurance Providers Payer Name Payer Address Payer Phone Subscriber Number Group Number Insured Name Patient Relationship to Insured Coverage Start Date Coverage End Date [employer] [address] [address] [place] [address] [id number] Reyna Ivy Self - patient is the insured [facility] [address] [address] [place] [address] [id number] Reyna Ivy Self - patient is the insured Medical (General) History Medical History History ICD Code Anxiety disorder Arthritis breast cancer depression type II diabetes GERD/Reflux Hepatitis kidney disease Neuropathy of Feet Pneumonia Thyroid Problems Vein Problems Surgical History Surgery Date(Month/Year) cellulitis
--- OUTSIDE RECORDS SUMMARY | 2025-04-28 12:27 | XMS_ITS | Clinical Summary ---
Author Organization [facility] [place] Address [address] [place] [address] Phone Care Team Providers Care Plastic Surgeon Name Role Phone Haris Gilbert MD Primary Care Provider [phone] Allergies Active Allergy Reactions Criticality Noted Date Comments Adhesive Rash High 10/15/2015 Penicillins Rash High 10/15/2015 Medications docusate sodium (COLACE) 100 mg capsule Take 100 mg by mouth daily. Active CHOLECALCIFEROL , VITAMIN D3, (VITAMIN D3 ORAL) Take by mouth daily. Active ZINC ACETATE ORAL Take 50 mg by mouth daily. Active potassium chloride (KLOR-CON) 10 mEq Extended Release tablet Take 10 mEq by mouth daily For 5 days . Active oxyCODONE-aceta minophen (PERCOCET) 5-325 mg tablet Take 1 Tablet by mouth every 6 hours as needed for Pain, Moderate. Max Daily Amount: 4 Tablet 30 Tablet 0 6 Active fish oil-omega-3 fatty acids (FISH OIL) 340-1,000 mg Capsule Take by mouth. Activ e furosemide (LASIX) 40 mg tablet 6 Active ibuprofen (MOTRIN) 200 mg tablet Take by mouth. Activ e gabapentin (NEURONTIN) 300 mg capsule 3 capsules 3 times daily. Active Magnesium 250 mg Tablet Take 500 mg by mouth daily. Active zolpidem (AMBIEN) 5 mg tablet Take by mouth. Activ e fluticasone (FLONASE) 50 mcg/spray Manning, Suspension Administer 2 Sprays in each nostril 2 times daily. Active acidophillus citrus pectin 25 million cell/100 mg (LACTINEX) 25 million cell -100 mg Tablet Take by mouth. Active oxybutynin chloride (DITROPAN) 5 mg tablet Take one pill up to 3 times a day as directed 3 Active lisinopriL (PRINIVIL) 20 mg tablet Take 20 mg by mouth daily. Active baclofen (LIORESAL) 10 mg tablet Take 10 mg by mouth 3 times daily as needed for Pain. Patient takes it every night Active meloxicam (MOBIC) 15 mg tablet Take 15 mg by mouth 1 time daily as needed for Pain. 3 Active LYCOPENE ORAL Take 1 Tablet by mouth daily. Active levothyroxine 50 mcg tablet Take 50 mcg by mouth daily. 2 Active lactulose (ENULOSE) 10 gram/15 mL 10 gram/15 mL solution Take 15 mL by mouth 1 time daily as needed for Constipation. 2 Active acetaminophen-c odeine (TYLENOL #3) 300-30 mg tablet Take 1 Tablet by mouth every 6 hours as needed for Pain. Active venlafaxine (EFFEXOR XR) 75 mg Extended Release 24 hour capsule Take 75 mg by mouth daily. Active naltrexone HCl (NALTREXONE ORAL) Take by mouth. Activ e multivitamin/ir on/folic acid (SPECTRAVITE ADULT ORAL) Take by mouth. Act sharon Active Problems Patient Care Coordination No te Formatting of this note migh t be different from the original. Primary Care: No primary care provider on file. Referring Provider: No referring provider defined for this encounter. Other: Problem Noted Date Diagnosed Date Failed back syndrome 11/05/2023 Encounter for long-term (cur rent) use of antiplatelets/antithrombotics 11/05/2023 Back pain 11/05/2023 Thoracic spondylosis 11/05/2023 Arthritis 11/05/2023 Depression 11/05/2023 Diabetes mellitus 11/05/2023 Sleep apnea 11/05/2023 Thyroid disorder 11/05/2023 S/P insertion of spinal cord stimulator 10/06/19 24 Cellulitis 10/05/2023 Hypertension, essential 10/05/2023 Inflamed seborrheic keratosis 08/17/2022 OAB (overactive bladder) 02/16/2022 Lumbar radiculopathy 11/19/2019 Overview (10/05/2023): Added automatically from request for surgery [id number] Breast infection in female 12/20/2015 S/P right mastectomy 11/17/2015 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) Immunizations Immunization Administration Dates Next Due Influenza Seasonal Unspecified Formulation IM Family History Medical History Relation Name Comments Heart Disease Father Hyperlipidemia Father Stroke Father Relation Name Status Comments Father Mother Social History Tobacco Use Types Packs/Day Years Used Date Smoking Tobacco: Never Smokeless Tobacco: Never Tobacco Cessation:Counseling Given: Not Answered Alcohol Use Standard Drinks/Week Comments Yes 0 (1 standard drink = 0.6 oz pur e alcohol) rarely Feeling Safe Answer Date Recorded Are you in a relationship wi th someone who hurts you emotionally and/or physically? 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 Gender Identity Not on file Sexual Orientation Not on file Last Filed Vital Signs Vital Sign Reading Time Taken Comments Blood Pressure 148/60 11/07/2023 11:41 AM CDT Pulse 94 11/07/2023 11:41 AM CDT Temperature 36.5 C (97.7 F) 11/07/2023 11:41 AM CDT Respiratory Rate 18 11/07/2023 11:41 AM CDT Oxygen Saturation 99% 11/07/2023 11:41 AM CDT Inhaled Oxygen Concentration - - Weight 113.4 kg (250 lb) 11/07/2023 11:41 AM CDT Height 170.2 cm (5' 7) 11/07/2023 11:41 AM CDT Body Mass Index 39.16 11/07/2023 11:41 AM CDT Plan of Treatment Health Maintenance Due Date Last Done Comments DIABETES ANNUAL FOOT EXAM 1958 DIABETES ANNUAL RETINAL EXAM 1958 DIABETES MICROALBUMIN ANNUAL SCREEN 1958 LDL CHOLESTEROL ANNUAL 1958 OSTEOPOROSIS SCREENING 2005 RSV VACCINE (60+ or ) (1 - 1-dose 75+ series) 2015 ZOSTER VACCINE (2 of 2) 08/09/2023 06/14/2023 DIABETES HBA1C Q 6 MONTHS 04/06/20242023, 09/18/2023, 03/12/2023 INFLUENZA VACCINE (#1) 2025 , 07/10/2022, 07/02/2018, Additional history exists COVID-19 Vaccine ( - 2024-2 6 season) 2025 03/23/2022, 05/31/2021, 11/09/2020, Additional history exists DTAP/TDAP/TD VACCINES (2 - T d or Tdap) 07/13/2025 07/13/2015 PNEUMOCOCCAL VACCINE 50+ YEARS Completed 03/29/2020 , 07/02/2018 Procedures Procedure Name Priority Date/Time Associated Diagnosis Comments HEMOGLOBIN A1C Routine 10/05/2023 8:34 PM IT AUDITOR from Last 3 Months or Most Recently Relevant to Health Maintenance Results * (ABNORMAL) HEMOGLOBIN A1C (10/05/2023 8:34 PM IT AUDITOR) HEMOGLOBIN A1C 5.9(H) <=5.6 % 10/05/2023 9:46 PM IT AUDITOR [facility] EST. AVG GLUCOSE, A1C 123 mg/dL 10/05/2023 9:46 PM IT AUDITOR [facility] Blood Venipuncture / Unknown 10/05/2023 8:34 PM IT AUDITOR 10/05/2023 9:15 PM IT AUDITOR Narrative [facility] - 10/05/2023 9:46 PM IT AUDITOR HGB A1C INTERPRETATION NORMAL: <5.7% PRE-DIABETES: 5.7 - 6.4% DIABETES: 6.5% OR GREATER us Nory Obrien MD CHEMISTRY ORDERABLES Final Resu lt [facility] CLIA# [id number] [place] [address] from Last 3 Months or Most Recently Relevant to Health Maintenance Insurance MEDICARE [employer] [facility] OPTIONS PPO [id number] Advance Directives For more information, please contact: [phone] * Full Code (Latest Code Status on File) Date Activated Date Inactivated Comments 10/05/2023 8:15 PM 10/07/2023 3:01 PM * Full Code Date Activated Date Inactivated Comments 12/15/2015 9:30 AM 12/15/2015 9:43 PM * Full Code Date Activated Date Inactivated Comments 11/17/2015 6:32 PM 11/18/2015 2:04 PM * Full Code Date Activated Date Inactivated Comments 11/17/2015 8:58 AM 11/17/2015 6:32 PM Care Teams Plastic Surgeon Relationship Specialty Start Date End Date Haris Gilbert MD [address] [place] [id number] PCP - General Family Practice 11/07/23
[2025-04-28 12:35] LABS: Alanine Aminotransferase 18 U/L (6-35); Albumin Level 3.7 g/dL (3.5-5.1); Alkaline Phosphatase 75 U/L (38-126); Anion Gap 5 mmol/L (4-12); Aspartate Amino Transferase 24 U/L (14-36); Bilirubin,Total 0.4 mg/dL (0.2-1.3); Blood Urea Nitrogen 20 mg/dL (7-17); Calcium 8.9 mg/dL (8.4-10.2); Carbon Dioxide 25 mmol/L (22-30); Chloride 109 mmol/L (98-107); Estimated Glomerular Filt Rate > 60; Glucose 95 mg/dL (65-110); Lipase 141 U/L (23-300); Potassium 4.5 mmol/L (3.4-5.0); Sodium 139 mmol/L (137-145); Total Protein 6.4 g/dL (6.3-8.2)
[2025-04-28 12:36] LABS: INR 0.9; Prothrombin Time 12.8 Seconds (11.1-14.7)
[2025-04-28 12:37] LABS: Partial Thromboplastin Time 26.4 Seconds (22.3-36.8)
[2025-04-28 12:45] LABS: Troponin I < 0.012 ng/mL (0.000-0.034)
--- NOTE | 2025-04-28 14:37 | ED_ITS ---
HPI - General Adult General Chief complaint: Chest Pain <Tiana Germain December, DIETETICS DIRECTOR - Last Filed: 04/29/25 19:36> Stated complaint: SOB, headache, fatigue, congestion, fall, hip pain <Tiana Germain December, DIETETICS DIRECTOR - Last Filed: 04/29/25 19:36> Time Seen by Provider: 04/28/25 14:37 <Tiana Germain December, DIETETICS DIRECTOR - Last Filed: 04/29/25 19:36> Focused HPI: Reyna Ivy is a 84 y/o female who presents with reports of having a SAUCEDO off and on for a month that is now continuous, and now having intermittent diaphoresis to the point where she has to change clothes 5 times over the past week. She states she has constipation and feeling increased weakness, She also has had off and on chest pain ringing in her ears and blurred vision for 2-3 days feels eyes are dry GENERAL: Well-appearing, well-nourished, and in no acute distress. HEAD: Normocephalic, atraumatic. CHEST: Clear to auscultation. ?No respiratory distress. HEART: Regular rate and rhythm.? NEURO: ?Alert and oriented x3. Patient screened in triage and initial orders placed.? ?Additional care and disposition to be based upon?diagnostic testing and treatment. <Tiana Germain December, DIETETICS DIRECTOR - Last Filed: 04/29/25 19:36> History of Present Illness HPI narrative: Agree with the HPI. Patient did note some increased urinary frequency as well. She was diagnosed with the UTI approximately a month ago. She does not get headaches regularly. < Shaun Chapin MD - Last Filed: 04/28/25 22:11> Related Data Home medications: Home Medications ?Medication ?Instructions ?Recorded ?Confirmed ?Last Taken ?Type fluticasone propionate 50 2 spray intranasal DAILY 11/2604/08/25 Unknown History mcg/actuation nasal spray,suspension magnesium 200 mg tablet 250 mg PO BID 05/09/2304/0803/17/24 History donepezil 23 mg tablet 23 mg PO QHS 11/05/24 Unknown History <Tiana Germain December, DIETETICS DIRECTOR - Last Filed: 04/29/25 19:36> Allergies/adverse reactions: Allergies Allergy/AdvReac Type Severity Reaction Status Date / Time Penicillins Allergy Unknown Unknown Verified 03/20/25 13:54 adhesive tape AdvReac Mild Unknown Verified 03/20/25 13:54 <Tiana Germain December, - Last Filed: 04/29/25 19:36> Review of Systems 2 Review of Systems: Gen.: As per HPI Eyes: Denies eye pain or visual change ENT: As per HPI Respiratory: As per HPI CV: As per HPI GI: Denies abdominal pain nausea, emesis or diarrhea as per HPI Musculoskeletal: Denies back pain or muscle pain Neuro: Denies numbness, tingling, weakness or focal weakness Skin: Denies rash Except as documented, all other systems reviewed and negative <Shaun Chapin MD - Last Filed: 04/28/25 22:11> [facility] Past Medical History Medical History: Medical History Peptic ulcer disease Left foot drop Sciatica Heart failure History of fatty infiltration of liver Vitamin D deficiency Fatigue Venous stasis dermatitis Mass of left foot Left foot pain Hypothyroidism Breast cancer Hypertension Irritable bowel syndrome GERD (gastroesophageal reflux disease) Diabetes <Tiana Germain December,N - Last Filed: 04/29/25 19:36> Surgical History Surgical History: Surgical History History of appendectomy H/O: hysterectomy Hx of cholecystectomy History of back surgery H/O colonoscopy History of colon resection H/O mastectomy <Tiana Germain December,N - Last Filed: 04/29/25 19:36> Family History Family History: Family History Father Family history of Alzheimer's disease Cerebrovascular accident Mother Family history of congestive heart failure Family history of chronic obstructive pulmonary disease Lung cancer <Tiana Germain December,N - Last Filed: 04/29/25 19:36> Social History Social History: Social History Smoking status: Former smoker Tobacco type: cigarettes Second hand tobacco smoke exposure: Yes Alcohol intake: current Drinks per week: 1 Substance use: never Do You Feel Safe in your Home?: Yes Lack of Transportation: No Lack of Food: Never True Current Housing: I Have Housing Concerned About Future Housing: No Difficulty Paying Gas/Electric Bills: No Difficulty Paying for Meds: No Currently Unemployed: No Education: High School Diploma/GED Difficulty w/ Childcare or Family Care: No Living arrangements: with family Occupation/Education: retired Spiritual care concerns: No Agree to blood products: Yes <Tiana Calderon DIETETICS DIRECTOR - Last Filed: 04/29/25 19:36> Exam 2 Narrative: APPEARANCE: No acute distress, nontoxic, resting in bed EYES: EOMI HEENT: Normocephalic, atraumatic, OMM RESPIRATORY: No respiratory distress Clear to auscultation bilaterally with no rhonchi wheezing or rales. CARDIOVASCULAR: Regular rate and rhythm without murmurs rubs or gallops. Chest wall: Status post right mastectomy ABDOMINAL: Soft, nontender, nondistended, no rebound or guarding MUSCULOSKELETAl: Moves all extremities. 2+ pitting edema noted to the bilateral lower extremities. NEURO: Awake and alert. Following commands, speech normal, no focal deficits SKIN:: Warm, dry. No rashes lesions or abrasions PSYCHIATRIC: Normal affect/mood, <Shaun Chapin MD - Last Filed: 04/28/25 22:11> Course Vital Signs Vital signs: Vital Signs Temperature 36.4 C L 04/28/25 12:02 Pulse Rate 60 04/28/25 12:02 Respiratory Rate 16 04/28/25 12:02 Blood Pressure 157/62 H 04/28/25 12:02 Pulse Oximetry 99 04/28/25 12:02 Temperature 36.5 C 04/28/25 15:24 Pulse Rate 62 04/28/25 15:45 Respiratory Rate 17 04/28/25 15:45 Blood Pressure 139/62 04/28/25 15:45 Pulse Oximetry 100 04/28/25 15:45 Oxygen Delivery Room Air 04/28/25 15:50 <Tiana Calderon, DIETETICS DIRECTOR - Last Filed: 04/29/25 19:36> Vital Signs Temperature 36.4 C L 04/28/25 12:02 Pulse Rate 60 04/28/25 12:02 Respiratory Rate 16 04/28/25 12:02 Blood Pressure 157/62 H 04/28/25 12:02 Pulse Oximetry 99 04/28/25 12:02 Temperature 36.5 C 04/28/25 15:24 Pulse Rate 62 04/28/25 15:45 Respiratory Rate 17 04/28/25 15:45 Blood Pressure 139/62 04/28/25 15:45 Pulse Oximetry 100 04/28/25 15:45 Oxygen Delivery Room Air 04/28/25 15:50 <Shaun Chapin MD - Last Filed: 04/28/25 22:11> Medical Decision Making MDM Narrative Medical decision making narrative: A 84-year-old female who presented to the ED for a constellation of complaints as above. On initial evaluation the patient was in no acute distress, afebrile, hemodynamically stable. She had a nonfocal neuro exam. CBC and CMP without significant abnormalities. UA consistent with a UTI. COVID/flu/RSV negative. CT head showed no acute process. Chest x-ray showed no acute process. Suspect the patient may have a headache related to her UTI. She was given Keflex. She was also given Toradol, Compazine, 1 L NS bolus for her headache. She did have improvement of her symptoms. She was advised follow-up with her PCP in the next week for re-evaluation. Patient was agreeable to plan. Given strict return precautions. <Shaun Chapin MD - Last Filed: 04/28/25 22:11> Differential Diagnosis Differential Diagnosis: Migraine, tension headache, ACS, UTI electrolyte abnormality <Shaun Chapin MD - Last Filed: 04/28/25 22:11> Medical Records Medical records reviewed: Yes I reviewed the external patient's medical records. <Shaun Chapin MD - Last Filed: 04/28/25 22:11> Vital Signs Vital Signs: Vital Signs Temperature 36.4 C L 04/28/25 12:02 Pulse Rate 60 04/28/25 12:02 Respiratory Rate 16 04/28/25 12:02 Blood Pressure 157/62 H 04/28/25 12:02 Pulse Oximetry 99 04/28/25 12:02 Temperature 36.5 C 04/28/25 15:24 Pulse Rate 62 04/28/25 15:45 Respiratory Rate 17 04/28/25 15:45 Blood Pressure 139/62 04/28/25 15:45 Pulse Oximetry 100 04/28/25 15:45 Oxygen Delivery Room Air 04/28/25 15:50 <Tiana Calderon DIETETICS DIRECTOR - Last Filed: 04/29/25 19:36> Vital Signs Temperature 36.4 C L 04/28/25 12:02 Pulse Rate 60 04/28/25 12:02 Respiratory Rate 16 04/28/25 12:02 Blood Pressure 157/62 H 04/28/25 12:02 Pulse Oximetry 99 04/28/25 12:02 Temperature 36.5 C 04/28/25 15:24 Pulse Rate 62 04/28/25 15:45 Respiratory Rate 17 04/28/25 15:45 Blood Pressure 139/62 04/28/25 15:45 Pulse Oximetry 100 04/28/25 15:45 Oxygen Delivery Room Air 04/28/25 15:50 <Shaun Chapin MD - Last Filed: 04/28/25 22:11> Lab Data Lab results reviewed: Yes I reviewed the patient's lab results. <Shaun Chapin MD - Last Filed: 04/28/25 22:11> Result diagrams: 04/28/25 12:16 04/28/25 12:16 <Tiana Calderon DIETETICS DIRECTOR - Last Filed: 04/29/25 19:36> Labs: Lab Results 04/28/25 04/28/25 04/28/25 Range/Units 12:16 15:08 16:13 WBC 7.7 (4.5-10.0) K/mm3 RBC 4.49 (4.2-5.4) M/mm3 Hgb 13.3 (12.0-15.0) g/dL Hct 42.7 (37.0-47.0) % MCV 95.1 (80-100) fl MCH 29.6 (26-34) pg MCHC 31.1 L (32-36) g/dl RDW 13.6 (11.5-14.5) % Plt Count 176 (150-375) k/mm3 MPV 10.0 (7.4-10.4) fl Immature Gran % (Auto) 0.3 (0-0.5) % Neut % (Auto) 67.5 (45.5-73.1) % Lymph % (Auto) 20.5 (18.3-44.2) % [place] % (Auto) 9.1 H (2.6-8.5) % Eos % (Auto) 1.7 (0-4.4) % Baso % (Auto) 0.9 (0.2-1.2) % Lymph # (Auto) 1.58 (0.9-3.2) K/mm3 [place] # (Auto) 0.7 H (0.1-0.6) K/mm3 Eos # (Auto) 0.1 (0-0.3) K/mm3 Baso # (Auto) 0.1 (0.0-0.1) K/mm3 Abs Immat Gran (auto) 0.02 (0.00-0.031) K/mm3 Absolute Neuts (auto) 5.2 (1.3-6.7) K/mm3 Absolute Nucleated RBC 0.000 (0.0-0.012) K/mm3 Nucleated RBC % 0.0 (0.0-0.2) % PT 12.8 (11.1-14.7) Seconds INR 0.9 APTT 26.4 (22.3-36.8) Seconds Sodium 139 (137-145) mmol/L Potassium 4.5 (3.4-5.0) mmol/L Chloride 109 H (98-107) mmol/L Carbon Dioxide 25 (22-30) mmol/L Anion Gap 5 (4-12) mmol/L BUN 20 H (7-17) mg/dL Creatinine 0.82 (0.7-1.0) mg/dL Estim Creat Clear Calc Not Reportable Estimated GFR > 60 (59 - ) Glucose 95 (65-110) mg/dL Calcium 8.9 (8.4-10.2) mg/dL Total Bilirubin 0.4 (0.2-1.3) mg/dL AST 24 (14-36) U/L ALT 18 (6-35) U/L Alkaline Phosphatase 75 (38-126) U/L Troponin I < 0.012 < 0.012 (0.000-0.034) ng/mL NT-Pro-B Natriuret Pep 442 H (19.9-100) pg/mL Total Protein 6.4 (6.3-8.2) g/dL Albumin 3.7 (3.5-5.1) g/dL Lipase 141 (23-300) U/L Urine Color Yellow (Yellow) Urine Appearance Cloudy H (Clear) Urine pH 5.5 (5.0-9.0) Ur Specific [place] 1.013 (1.001-1.035) Urine Protein Negative (Negative) mg/dL Urine Glucose (UA) Negative (Negative) mg/dL Urine Ketones Negative (Negative) mg/dL Ur Blood (Man) Trace (Negative) Urine Nitrate Positive H (Negative) Urine Bilirubin Negative (Negative) Urine Urobilinogen 0.2 (<2.0) mg/dL Leukocyte Esterase Rfl 3+ H (Negative) ADALID/UL Urine RBC 0-2 (0-2) /hpf Urine WBC 51-100 H (0-3) /hpf Ur Squamous Epith Cells Occasional (Few) /hpf Urine Bacteria 4+ H /hpf Urine Casts 0-2 Influenza A (RT-PCR) (Negative) Influenza B (RT-PCR) (Negative) RSV (RT-PCR) (Negative) SARS-CoV-2 RNA (RT-PCR) (Negative) 04/28/25 Range/Units 16:14 WBC (4.5-10.0) K/mm3 RBC (4.2-5.4) M/mm3 Hgb (12.0-15.0) g/dL Hct (37.0-47.0) % MCV (80-100) fl MCH (26-34) pg MCHC (32-36) g/dl RDW (11.5-14.5) % Plt Count (150-375) k/mm3 MPV (7.4-10.4) fl Immature Gran % (Auto) (0-0.5) % Neut % (Auto) (45.5-73.1) % Lymph % (Auto) (18.3-44.2) % [place] % (Auto) (2.6-8.5) % Eos % (Auto) (0-4.4) % Baso % (Auto) (0.2-1.2) % Lymph # (Auto) (0.9-3.2) K/mm3 [place] # (Auto) (0.1-0.6) K/mm3 Eos # (Auto) (0-0.3) K/mm3 Baso # (Auto) (0.0-0.1) K/mm3 Abs Immat Gran (auto) (0.00-0.031) K/mm3 Absolute Neuts (auto) (1.3-6.7) K/mm3 Absolute Nucleated RBC (0.0-0.012) K/mm3 Nucleated RBC % (0.0-0.2) % PT (11.1-14.7) Seconds INR APTT (22.3-36.8) Seconds Sodium (137-145) mmol/L Potassium (3.4-5.0) mmol/L Chloride (98-107) mmol/L Carbon Dioxide (22-30) mmol/L Anion Gap (4-12) mmol/L BUN (7-17) mg/dL Creatinine (0.7-1.0) mg/dL Estim Creat Clear Calc Estimated GFR (59 - ) Glucose (65-110) mg/dL Calcium (8.4-10.2) mg/dL Total Bilirubin (0.2-1.3) mg/dL AST (14-36) U/L ALT (6-35) U/L Alkaline Phosphatase (38-126) U/L Troponin I (0.000-0.034) ng/mL NT-Pro-B Natriuret Pep (19.9-100) pg/mL Total Protein (6.3-8.2) g/dL Albumin (3.5-5.1) g/dL Lipase (23-300) U/L Urine Color (Yellow) Urine Appearance (Clear) Urine pH (5.0-9.0) Ur Specific [place] (1.001-1.035) Urine Protein (Negative) mg/dL Urine Glucose (UA) (Negative) mg/dL Urine Ketones (Negative) mg/dL Ur Blood (Man) (Negative) Urine Nitrate (Negative) Urine Bilirubin (Negative) Urine Urobilinogen (<2.0) mg/dL Leukocyte Esterase Rfl (Negative) ADALID/UL Urine RBC (0-2) /hpf Urine WBC (0-3) /hpf Ur Squamous Epith Cells (Few) /hpf Urine Bacteria /hpf Urine Casts Influenza A (RT-PCR) Negative (Negative) Influenza B (RT-PCR) Negative (Negative) RSV (RT-PCR) Negative (Negative) SARS-CoV-2 RNA (RT-PCR) Negative (Negative) <Tiana Calderon, DIETETICS DIRECTOR - Last Filed: 04/29/25 19:36> Lab Results 04/28/25 04/28/25 04/28/25 Range/Units 12:16 15:08 16:13 WBC 7.7 (4.5-10.0) K/mm3 RBC 4.49 (4.2-5.4) M/mm3 Hgb 13.3 (12.0-15.0) g/dL Hct 42.7 (37.0-47.0) % MCV 95.1 (80-100) fl MCH 29.6 (26-34) pg MCHC 31.1 L (32-36) g/dl RDW 13.6 (11.5-14.5) % Plt Count 176 (150-375) k/mm3 MPV 10.0 (7.4-10.4) fl Immature Gran % (Auto) 0.3 (0-0.5) % Neut % (Auto) 67.5 (45.5-73.1) % Lymph % (Auto) 20.5 (18.3-44.2) % [place] % (Auto) 9.1 H (2.6-8.5) % Eos % (Auto) 1.7 (0-4.4) % Baso % (Auto) 0.9 (0.2-1.2) % Lymph # (Auto) 1.58 (0.9-3.2) K/mm3 [place] # (Auto) 0.7 H (0.1-0.6) K/mm3 Eos # (Auto) 0.1 (0-0.3) K/mm3 Baso # (Auto) 0.1 (0.0-0.1) K/mm3 Abs Immat Gran (auto) 0.02 (0.00-0.031) K/mm3 Absolute Neuts (auto) 5.2 (1.3-6.7) K/mm3 Absolute Nucleated RBC 0.000 (0.0-0.012) K/mm3 Nucleated RBC % 0.0 (0.0-0.2) % PT 12.8 (11.1-14.7) Seconds INR 0.9 APTT 26.4 (22.3-36.8) Seconds Sodium 139 (137-145) mmol/L Potassium 4.5 (3.4-5.0) mmol/L Chloride 109 H (98-107) mmol/L Carbon Dioxide 25 (22-30) mmol/L Anion Gap 5 (4-12) mmol/L BUN 20 H (7-17) mg/dL Creatinine 0.82 (0.7-1.0) mg/dL Estim Creat Clear Calc Not Reportable Estimated GFR > 60 (59 - ) Glucose 95 (65-110) mg/dL Calcium 8.9 (8.4-10.2) mg/dL Total Bilirubin 0.4 (0.2-1.3) mg/dL AST 24 (14-36) U/L ALT 18 (6-35) U/L Alkaline Phosphatase 75 (38-126) U/L Troponin I < 0.012 < 0.012 (0.000-0.034) ng/mL NT-Pro-B Natriuret Pep 442 H (19.9-100) pg/mL Total Protein 6.4 (6.3-8.2) g/dL Albumin 3.7 (3.5-5.1) g/dL Lipase 141 (23-300) U/L Urine Color Yellow (Yellow) Urine Appearance Cloudy H (Clear) Urine pH 5.5 (5.0-9.0) Ur Specific [place] 1.013 (1.001-1.035) Urine Protein Negative (Negative) mg/dL Urine Glucose (UA) Negative (Negative) mg/dL Urine Ketones Negative (Negative) mg/dL Ur Blood (Man) Trace (Negative) Urine Nitrate Positive H (Negative) Urine Bilirubin Negative (Negative) Urine Urobilinogen 0.2 (<2.0) mg/dL Leukocyte Esterase Rfl 3+ H (Negative) ADALID/UL Urine RBC 0-2 (0-2) /hpf Urine WBC 51-100 H (0-3) /hpf Ur Squamous Epith Cells Occasional (Few) /hpf Urine Bacteria 4+ H /hpf Urine Casts 0-2 Influenza A (RT-PCR) (Negative) Influenza B (RT-PCR) (Negative) RSV (RT-PCR) (Negative) SARS-CoV-2 RNA (RT-PCR) (Negative) 04/28/25 Range/Units 16:14 WBC (4.5-10.0) K/mm3 RBC (4.2-5.4) M/mm3 Hgb (12.0-15.0) g/dL Hct (37.0-47.0) % MCV (80-100) fl MCH (26-34) pg MCHC (32-36) g/dl RDW (11.5-14.5) % Plt Count (150-375) k/mm3 MPV (7.4-10.4) fl Immature Gran % (Auto) (0-0.5) % Neut % (Auto) (45.5-73.1) % Lymph % (Auto) (18.3-44.2) % [place] % (Auto) (2.6-8.5) % Eos % (Auto) (0-4.4) % Baso % (Auto) (0.2-1.2) % Lymph # (Auto) (0.9-3.2) K/mm3 [place] # (Auto) (0.1-0.6) K/mm3 Eos # (Auto) (0-0.3) K/mm3 Baso # (Auto) (0.0-0.1) K/mm3 Abs Immat Gran (auto) (0.00-0.031) K/mm3 Absolute Neuts (auto) (1.3-6.7) K/mm3 Absolute Nucleated RBC (0.0-0.012) K/mm3 Nucleated RBC % (0.0-0.2) % PT (11.1-14.7) Seconds INR APTT (22.3-36.8) Seconds Sodium (137-145) mmol/L Potassium (3.4-5.0) mmol/L Chloride (98-107) mmol/L Carbon Dioxide (22-30) mmol/L Anion Gap (4-12) mmol/L BUN (7-17) mg/dL Creatinine (0.7-1.0) mg/dL Estim Creat Clear Calc Estimated GFR (59 - ) Glucose (65-110) mg/dL Calcium (8.4-10.2) mg/dL Total Bilirubin (0.2-1.3) mg/dL AST (14-36) U/L ALT (6-35) U/L Alkaline Phosphatase (38-126) U/L Troponin I (0.000-0.034) ng/mL NT-Pro-B Natriuret Pep (19.9-100) pg/mL Total Protein (6.3-8.2) g/dL Albumin (3.5-5.1) g/dL Lipase (23-300) U/L Urine Color (Yellow) Urine Appearance (Clear) Urine pH (5.0-9.0) Ur Specific [place] (1.001-1.035) Urine Protein (Negative) mg/dL Urine Glucose (UA) (Negative) mg/dL Urine Ketones (Negative) mg/dL Ur Blood (Man) (Negative) Urine Nitrate (Negative) Urine Bilirubin (Negative) Urine Urobilinogen (<2.0) mg/dL Leukocyte Esterase Rfl (Negative) ADALID/UL Urine RBC (0-2) /hpf Urine WBC (0-3) /hpf Ur Squamous Epith Cells (Few) /hpf Urine Bacteria /hpf Urine Casts Influenza A (RT-PCR) Negative (Negative) Influenza B (RT-PCR) Negative (Negative) RSV (RT-PCR) Negative (Negative) SARS-CoV-2 RNA (RT-PCR) Negative (Negative) <Shaun Chapin MD - Last Filed: 04/28/25 22:11> Imaging Data Attestation: I personally reviewed and interpreted this imaging study as follows: (Her reviewed the radiologist's interpretations) <Shaun Chapin MD - Last Filed: 04/28/25 22:11> Radiologist's impression: Impressions Chest X-Ray 04/28/25 13:39 IMPRESSION: 1. No acute cardiopulmonary findings. Head CT 04/28/25 15:02 IMPRESSION: 1. No acute intracranial abnormality. <Shaun Chapin MD - Last Filed: 04/28/25 22:11> ECG Data EKG #1: Attestation: I personally reviewed and interpreted this ECG as follows: <Shaun Chapin MD - Last Filed: 04/28/25 22:11> ECG completion date: 04/28/25 <Shaun Chapin MD - Last Filed: 04/28/25 22:11> ECG completion time: 12:09 <Shaun Chapin MD - Last Filed: 04/28/25 22:11> Interpretation: Sinus bradycardia with first-degree AV block rate of 55, normal axis, incomplete right bundle-branch block, no acute ST or T-wave changes < Shaun Chapin MD - Last Filed: 04/28/25 22:11> EKG #2: Attestation: I personally reviewed and interpreted this ECG as follows: <Shaun Chapin MD - Last Filed: 04/28/25 22:11> ECG completion date: 04/28/25 <Shaun Chapin MD - Last Filed: 04/28/25 22:11> ECG completion time: 15:03 <Shaun Chapin MD - Last Filed: 04/28/25 22:11> Prior ECG tracings: available for review <Shaun Chapin MD - Last Filed: 04/28/25 22:11> Interpretation: Sinus bradycardia with first-degree AV block rate 56, normal axis, right ventricular conduction delay, no acute ST or T-wave changes <Shaun Chapin MD - Last Filed: 04/28/25 22:11> Discharge Plan Discharge Clinical Impression: Acute UTI, Headache <Tiana Calderon, DIETETICS DIRECTOR - Last Filed: 04/29/25 19:36> Patient Disposition: Home <Tiana Calderon, DIETETICS DIRECTOR - Last Filed: 04/29/25 19:36> Condition: Stable <Tiana Germain December, DIETETICS DIRECTOR - Last Filed: 04/29/25 19:36> Instructions: Antibiotic Form <Tiana Germain December, DIETETICS DIRECTOR - Last Filed: 04/29/25 19:36> Additional Instructions: Urinalysis showed a UTI. This may be the source of some of your discomfort. Take Keflex as prescribed. You may take Tylenol and ibuprofen for the pain. Return to the ED for any new or worsening symptoms. <Tiana Germain December, DIETETICS DIRECTOR - Last Filed: 04/29/25 19:36> Patient Language: Taiwanese <Tiana Germain December, DIETETICS DIRECTOR - Last Filed: 04/29/25 19:36> Prescriptions: New cephalexin 500 mg capsule 500 mg PO Q12H 7 Days Qty: 14 0RF cephalexin 500 mg capsule 500 mg PO Q12H 7 Days Qty: 14 0RF No Action fluticasone propionate 50 mcg/actuation spray,suspension 2 spray intranasal DAILY Rx Instructions: administer into each nostril magnesium 200 mg tablet 250 mg PO BID cholecalciferol (vitamin D3) 1,250 mcg (50,000 unit) capsule 1,250 mcg PO WEEKLY Qty: 12 3RF lubiprostone 8 mcg capsule 16 mcg PO DAILY Qty: 180 0RF furosemide 40 mg tablet 40 mg PO QAM Qty: 5 0RF sucralfate 100 mg/mL Suspension 1,000 mg PO ACHS Qty: 500 2RF pantoprazole 40 mg Tablet,Delayed Release (Dr/Ec) 40 mg PO Q12HR Qty: 60 0RF lidocaine 5 % adhesive patch,medicated 1 patch topical DAILY PRN (Reason: pain) Qty: 15 0RF Rx Instructions: leave on most painful area for up to 12 hrs cyanocobalamin (vitamin B-12) 1,000 mcg tablet 1,000 mcg PO DAILY Qty: 90 1RF baclofen 10 mg tablet 10 mg PO DAILY PRN (Reason: muscle spasm) Qty: 90 2RF donepezil 23 mg tablet 23 mg PO QHS levothyroxine 50 mcg tablet 50 mcg PO DAILY Qty: 90 1RF gabapentin 300 mg capsule 300 mg PO TID Qty: 270 1RF zolpidem [Ambien] 5 mg tablet 5 mg PO QHS PRN (Reason: insomnia) Qty: 14 0RF lisinopril 20 mg tablet 20 mg PO DAILY Qty: 90 1RF <Tiana Calderon APRN - Last Filed: 04/29/25 19:36> Follow-up/Referrals: Carmelina Cole APRN [Primary Care Provider, Family Practice] <Tiana Calderon APRN - Last Filed: 04/29/25 19:36>
--- OUTSIDE RECORDS SUMMARY | 2025-04-28 14:55 | XMS_ITS | Clinical Summary ---
Author Organization [facility] [place] Address [address] [place] [address] Phone Care Team Providers Care Tour Bus Driver/Guide Name Role Phone Haris Gilbert MD Primary Care Provider [phone] Allergies Active Allergy Reactions Criticality Noted Date [...] mouth. 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 AVG GLUCOSE, A1C 123 mg/dL 10/05/2023 9:46 PM AUTOMOTIVE SERVICE MANAGER [facility] Blood Venipuncture / Unknown 10/05/2023 8:34 PM AUTOMOTIVE SERVICE MANAGER 10/05/2023 9:15 PM AUTOMOTIVE SERVICE MANAGER Narrative [facility] - 10/05/2023 9:46 PM AUTOMOTIVE SERVICE MANAGER HGB A1C INTERPRETATION NORMAL: <5.7% PRE-DIABETES: 5.7 - 6.4% DIABETES: 6.5% OR GREATER us Nory Obrien MD CHEMISTRY ORDERABLES Final Resu lt [facility] CLIA# [id number] [place] [address] from Last 3 Months or Most Recently Relevant to Health Maintenance Insurance MEDICARE [employer] [facility] OPTIONS PPO [id number] Advance Directives For more information, please contact: [phone] * Full Code (Latest Code Status on File) Date Activated Date Inactivated Comments 10/05/2023 8:15 PM 10/07/2023 3:01 PM * Full Code Date Activated Date Inactivated Comments 12/15/2015 9:30 AM 12/15/2015 9:43 PM * Full Code Date Activated Date Inactivated Comments 11/17/2015 6:32 PM 11/18/2015 2:04 PM * Full Code Date Activated Date Inactivated Comments 11/17/2015 8:58 AM 11/17/2015 6:32 PM Care 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
--- OUTSIDE RECORDS SUMMARY | 2025-04-28 14:56 | XMS_ITS | Clinical Summary ---
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
--- OUTSIDE RECORDS SUMMARY | 2025-04-28 14:56 | XMS_ITS | Clinical Summary ---
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 Gender Identity Not on file Sexual Orientation Not on file Obstetrics History Last Filed Vital Signs Vital Sign Reading Time Taken Comments Blood Pressure 150/61 03/12/2023 8:53 AM CDT Pulse 101 03/12/2023 8:53 AM CDT Temperature 36.6 C (97.9 F) 10/04/2023 2:12 PM 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
--- NOTE | 2025-04-28 14:59 | ECG_ITS ---
Test Date: 2025-04-28 15:03:40 Measurements Intervals [place] Rate: 56 P: 29 UT: 232 QRS: -24 QRSD: 85 T: 47 QT: 391 QTc: 378 Interpretive Statements SINUS BRADYCARDIA WITH FIRST DEGREE AV BLOCK BORDERLINE LEFT AXIS DEVIATION [QRS AXIS < -20] POSSIBLE RIGHT VENTRICULAR CONDUCTION DELAY [RSR (QR) IN V1/V2] MODERATE VOLTAGE CRITERIA FOR LVH, CONSIDER NORMAL VARIANT [MEETS CRITERIA IN ONE OF: R(aVL), S(V1), R(V5), R(V5/V6)+S(V1)] Compared to ECG 04/28/2025 12:09:50 ziyad edgar Electronically Signed On 04-28-2025 15:58:04 CDT by Jhony Anne M.D.
[2025-04-28 15:24] VITALS: BP 126/67; PULSE 57; RESP 16; TEMP 36.5; O2SAT 100
[2025-04-28 15:37] LABS: NT Pro B Type Natriuretic Pept 442 pg/mL (19.9-100)
[2025-04-28 15:45] VITALS: BP 139/62; PULSE 62; RESP 17; O2SAT 100
[2025-04-28 16:06] LABS: Troponin I < 0.012 ng/mL (0.000-0.034)
[2025-04-28 16:26] LABS: Add Urine Microscopic? YES; Appearance Urine Cloudy (Clear); Glucose Urine UA Negative (Negative); Leukocyte Esterase Ur 3+ LEU/UL (Negative); Nitrate Urine Positive (Negative); Non Pathogenic Casts 0-2; Specific Grav Ur 1.013 (1.001-1.035)
[2025-04-28] MEDS: SODIUM CHLORIDE 0.9% IV 1,000 ML 999 ML IV CONT (18:05)
[2025-04-28] MEDS: CEPHALEXIN 500 MG CAPSULE PO (18:05)
[2025-04-28] MEDS: PROCHLORPERAZINE EDISYLATE 10 MG/2 ML VIAL IV PUSH (18:05)
[2025-04-28] MEDS: KETOROLAC 30 MG/ML VIAL (*BKC) IV PUSH (18:05)
[2025-04-28 18:17] LABS: Influenza A QL RT-PCR Negative (Negative); Influenza B QL RT-PCR Negative (Negative); RSV RNA, RT-PCR Negative (Negative); SARS-CoV-2 RNA PCR Negative (Negative)
== END 2025-04-28 19:34 | disposition home or self-care (01) ==
PROVIDERS: Emergency Medicine; Nurse Practitioner Family; Emergency Provider Student in an Organized Health Care Education/Training Program; PCP Nurse Practitioner Family
DX: R51.9 Headache, unspecified (principal); N39.0 Urinary tract infection, site not specified; Z20.822 Contact with and (suspected) exposure to COVID-19; I50.9 Heart failure, unspecified; I11.0 Hypertensive heart disease with heart failure; E55.9 Vitamin D deficiency, unspecified; E03.9 Hypothyroidism, unspecified; E11.9 Type 2 diabetes mellitus without complications; K58.9 Irritable bowel syndrome, unspecified; K21.9 Gastro-esophageal reflux disease without esophagitis; Z85.3 Personal history of malignant neoplasm of breast; Z87.11 Personal history of peptic ulcer disease; Z87.891 Personal history of nicotine dependence; Z90.49 Acquired absence of other specified parts of digestive tract; Z90.10 Acquired absence of unspecified breast and nipple; Z79.899 Other long term (current) drug therapy; I44.0 Atrioventricular block, first degree; R00.1 Bradycardia, unspecified; R94.31 Abnormal electrocardiogram [ECG] [EKG]
CPT/HCPCS: 36415; 70450; 71046; 80053; 81001; 83690; 83880; 84484; 85025; 85610; 85730; 87637; 93005; 96361; 96374; 96375; 99284; A9270; J0780; J1885; J7030